=== PATIENT | female | born 1955 | race Caucasian/White ===

== ENCOUNTER → 2019-12-27 12:18 | Outpatient (CLI) | payer OTHER, SELFPAY ==
--- NOTE | ~2019-12-27 | MM_ITS ---
EXAMINATION: MM screening [facility] BI w leanne HISTORY: Screening mammogram TECHNIQUE: Craniocaudal and mediolateral oblique 3-D tomosynthesis images were obtained and synthetic 2-D images were generated. CAD analysis was submitted and interpreted. COMPARISON: 01/19/2018, 01/12/2018, 03/29/2014 BREAST PARENCHYMAL COMPOSITION: The breasts are heterogeneously dense, which may obscure small masses . FINDINGS: There is no evidence of suspicious mass, calcification, or architectural distortion to sugg est malignancy in either breast. There has been no suspicious interval change. IMPRESSION: 1. No mammographic evidence of malignancy. 2. Recommend routine screening mammography in one year. BI-RADS Category 1: Negative Reviewed, dictated and finalized at location A. INTERN
== END ==
PROVIDERS: Visit Provider Obstetrics & Gynecology
DX: Z12.31 Encounter for screening mammogram for malignant neoplasm of breast (principal)
CPT/HCPCS: 77063; 77067

== ENCOUNTER → 2022-01-07 13:24 | Outpatient (CLI) | payer OTHER, SELFPAY ==
--- NOTE | ~2022-01-07 | MM_ITS ---
EXAMINATION: MM screening [facility] BI w leanne HISTORY: Screening mammogram TECHNIQUE: Craniocaudal and mediolateral oblique 3-D tomosynthesis images were obtained and synthetic 2-D images were generated. CAD analysis was submitted and interpreted. COMPARISON: 12/27/2019 bilateral screening mammogram 01/19/2018 diagnostic left mammogram and limited left breast ultrasound examination 01/12/2018 bilateral screening mammogram BREAST PARENCHYMAL COMPOSITION: The breasts are heterogeneously dense, which may obscure small masses . FINDINGS: There is chronic stable mammographic asymmetry on the left likely related to history of zia or benign excisional biopsy. There is no evidence of suspicious mass, calcification, or interval arch itectural distortion to suggest malignancy in either breast. There has been no suspicious interval ch sheree. IMPRESSION: 1. No mammographic evidence of malignancy. 2. Recommend routine screening mammography in one year. BI-RADS Category 2: Benign finding(s). Reviewed, dictated and finalized at location A. NING CONSULTANT
== END ==
PROVIDERS: PCP Internal Medicine; Visit Provider Obstetrics & Gynecology
DX: Z12.31 Encounter for screening mammogram for malignant neoplasm of breast (principal)
CPT/HCPCS: 77063; 77067

== ENCOUNTER 2022-04-21 14:54 | Outpatient (CLI) | payer OTHER, SELFPAY ==
[2022-04-24 05:13] LABS: CA-125 6 U/mL (<35)
== END 2022-04-21 14:55 | disposition home or self-care (01) ==
PROVIDERS: PCP Internal Medicine; Visit Provider Student in an Organized Health Care Education/Training Program
DX: N94.89 Other specified conditions associated with female genital organs and menstrual cycle (principal)
CPT/HCPCS: 36415; 86304

== ENCOUNTER 2022-06-08 08:50 | Outpatient (CLI) | payer OTHER, SELFPAY ==
--- NOTE | 2022-06-08 09:18 | ECG_ITS ---
Measurements Intervals [place] Rate: 71 P: 61 [place]: 188 QRS: 8 QRSD: 89 T: 70 QT: 413 QTc: 451 Interpretive Statements SINUS RHYTHM POSSIBLE LEFT ATRIAL ENLARGEMENT [-0.1mV P WAVE IN V1/V2] POSSIBLE ANTERIOR MYOCARDIAL INFARCTION [30 ms Q WAVE IN V3/V4, OR R < 0.2 mV IN V4], OF INDETERMINATE AGE ABNORMAL ECG NO PREVIOUS ECG AVAILABLE FOR COMPARISON Electronically Signed On 06-08-2022 11:56:50 CDT by Cain Savage M.D.
[2022-06-08 09:40] LABS: Hematocrit 42.9 % (37.0-47.0); Hemoglobin 13.5 g/dL (12.0-15.0); Mean Corpuscular HGB Conc 31.5 g/dl (32-36); Mean Corpuscular Hemoglobin 29.2 pg (26-34); Mean Corpuscular Volume 92.7 fl (80-100); Platelet Count Result 213 k/mm3 (150-375); Red Blood Count 4.63 M/mm3 (4.2-5.4); Red Cell Distribution Width 13.2 % (11.5-14.5); White Blood Count 7.4 K/mm3 (4.5-10.0)
[2022-06-08 09:52] LABS: Anion Gap 6 mmol/L (8-16); Blood Urea Nitrogen 15 mg/dL (7-17); Carbon Dioxide 33 mmol/L (22-30); Chloride 101 mmol/L (98-107); Estimated Glomerular Filt Rate 45; Glucose 135 mg/dL (65-110); Potassium 4.2 mmol/L (3.4-5.0); Sodium 140 mmol/L (137-145)
== END 2022-06-08 08:51 | disposition home or self-care (01) ==
LOC: ANHSURGERY 08:54
PROVIDERS: Anesthesiology; PCP Internal Medicine; Visit Provider Student in an Organized Health Care Education/Training Program
DX: N83.209 Unspecified ovarian cyst, unspecified side (principal); T50.2X5A Adverse effect of carbonic-anhydrase inhibitors, benzothiadiazides and other diuretics, initial encounter; I10 Essential (primary) hypertension; Z01.818 Encounter for other preprocedural examination; R94.31 Abnormal electrocardiogram [ECG] [EKG]
CPT/HCPCS: 36415; 80048; 85027; 86850; 86900; 86901; 93005

== ENCOUNTER 2022-06-11 00:28 | Day surgery (SDC) | payer OTHER, SELFPAY ==
[2022-06-03 10:37] VITALS: BMI 28.3
--- NOTE | 2022-06-03 10:42 | PC.NURSE ---
Report to the Outpatient Waiting Room, entrance under the green pavilion located off [facility], at time 12:30PM on date 06-11-22. Planned Procedure Time: 2:30PM. Time changes happen often and if your time is changed the preop area will call you the afternoon before. - You and your visitor will be asked to self-screen and do not enter if you have any COVID symptoms. - A mask is optional within the hospital at this time. Patients may have clear liquids (water, carbonated beverages, clear teas, apple juice) until 3 hours prior to surgery (11:30AM) with a maximum of 20 ounces. - No food from midnight until time of surgery Take the following medications with a SIP of water the morning of surgery: N/A DO NOT STOP ANY OF YOUR OTHER PRESCRIPTION MEDICATIONS PRIOR TO SURGERY ?EXCEPT THE FOLLOWING Medications to discontinue per physician VITAMINS Date to take last dose 06-07-22 Please no make-up, nail irish, hairspray, perfume, deodorant, or body powder the day of surgery. No jewelry (including any body piercings) or valuables the day of surgery, leave them at home. Please take a shower or bath the night before, or the morning of, surgery with an antibacterial soap. Wear comfortable, loose fitting clothing. - Jewelry must be removed prior to entering the operating room. Rings and piercings that are not removed may be cut off. - The hospital will not accept responsibility for valuables. - Please leave all valuables, including medications, at home the day of surgery. If you are going home after surgery, a licensed driver/sales workers must drive you home. - NO public transportation without another adult if you receive anesthesia. - We recommend that an adult stay with you for 24 hours following discharge. - We also recommend that you do not drive, make important decision, drink alcoholic beverages, or take any drugs that were not prescribed by your health care provider for at least 24 hours after your discharge time. Follow any additional instructions given to you from your surgeon. If you or anyone in your household have experienced Covid symptoms in the past week, please notify your surgeon or the nurse liaison at the phone number below for possible testing. Telephone instructions given to PATIENT and asked if any additional questions and then verbalized understanding. Patient advised to call surgeon office or pre surgery nurse liaison [phone] if any additional questions.
--- NOTE | 2022-06-10 13:39 | WPDANESEPPF ---
Anes - Initial Pre Proc Eval Procedure: Operation Date: 06/11/22 14:30 Proposed Procedures p Laparoscopic Bilateral Oophorectomy, Possible Lysis of Adhesions - uJanpablo Altamirano MD Date/Time: 06/10/22 13:39 Surgeon: Juanpablo Altamirano MD Pre Op Diagnosis: pelvic pain Patient Data Age: 66 Gender: F Height: 1.55 m Weight: 68 kg Allergies Allergy/AdvReac Type Severity Reaction Status Date / Time Penicillins Allergy Severe Anaphylactic Verified 06/11/22 13:09 Shock Home Medications Medication Instructions Recorded Confirmed Type furosemide 20 mg tablet 20 mg PO QAM 04/15/22 06/03/22 History losartan 25 mg tablet 25 mg PO DAILY 04/15/22 06/03/22 History pantoprazole 20 mg tablet,delayed 20 mg PO QAM 04/15/22 06/03/22 History release Adults Multivitamin 1 tab-cap PO DAILY 06/03/22 06/03/22 History B Complex Plus Vitamin C 06/03/22 History cholecalciferol (vitamin D3) 10 06/03/22 History mcg (400 unit) capsule (Vitamin D3) Patient hx anesthesia problems: none Family hx anesthesia problems: none Results Review: All pre-operative results and documents have been reviewed as part of the pre-operative evaluation. [facility] Past Medical History Medical History (Updated 06/11/22 @ 13:08 by Tee Pryor DO) Adnexal mass Hypertension Moderate mitral regurgitation Ovarian cyst Vaginal discharge Surgical History Surgical History H/O: hysterectomy Family History Family History Mother Hypertension Cerebrovascular accident Grandparent Hypertension Heart disease Sibling Acute myocardial infarction Social History Social History Smoking packs per day: 1 Smoking cigarettes per day: 20.0 Years smoked: 43 Smoking pack-years: 43.00 Smoking status: Former smoker Tobacco type: cigarettes Second hand tobacco smoke exposure: No Smoking end date: 02/15/19 Alcohol intake: former Alcohol use details: SOCIALLY IN THE PAST Substance use: never Substance use type: does not use Living arrangements: with family Additional living arrangements comments: Occupation/Education: retired Gender identity (if verbalized by the patient): Female Sexual Orientation (if Verbalized by the Patient): Straight or Heterosexual Anes - Eval Final PreProcedure Day of Procedure 06/10/22 13:39 Patient weight: overweight Heart: regular rate and rhythm Lungs: clear to auscultation Airway: Mallampati scale class II Neurological: alert and oriented Last oral intake: >/= 8 hours ASA classification: III Emergent: no Anesthetic plan: proceed Anesthesia type and monitoring: general ETT and standard monitoring Results Review: All pre-operative results and documents have been reviewed as part of the pre-operative evaluation. Informed Consent: The patient's anesthetic plan and its attendant risks and benefits were discussed with the patient/family/POA. Questions were solicited and answers provided to the satisfaction of the patient/family/POA.
[2022-06-11] VITALS (7 sets, daily range): BP systolic 94–148; BP diastolic 44–87; PULSE 60–83; RESP 10–16; TEMP 36.3–36.6; O2SAT 94–100
[2022-06-11] MEDS: KETOROLAC 15 MG/ML VIAL (*BKC) IV PUSH (12:55)
[2022-06-11] MEDS: ACETAMINOPHEN 500 MG TABLET 1000 MG PO (12:55)
[2022-06-11] MEDS: LACTATED RINGERS 1,000 ML 30 ML IV CONT ×2 (13:08→16:32)
--- NOTE | 2022-06-11 13:32 | PM.IMHP ---
H&P: HPI History of Present Illness Date/Time: 06/11/22 13:32 Chief Complaint: pelvic pain Narrative: 66-year-old female who presents for exploratory laparoscopy bilateral oophorectomy for pelvic pain. Patient reports a long history of pelvic pain. Patient underwent hysterectomy nearly 40 years ago. Patient still has intermittent episodes of vaginal bleeding, discharge, pain. Pelvic ultrasound showed bilateral fluid collections with septations around the ovaries. Potential scar tissue and cysts. Patient very frustrated with the pain and desires surgical management Review of Systems Cardiovascular: Cardiovascular: Denies chest pain, Denies leg edema, Denies palpitations, Denies dyspnea and Denies dyspnea on exertion Respiratory: Respiratory: Denies cough, Denies dyspnea and Denies dyspnea on exertion Gastrointestinal: Gastrointestinal: Denies abdominal pain, Denies constipation, Denies diarrhea, Denies nausea and Denies vomiting Genitourinary: Genitourinary: Denies hematuria, Denies urinary frequency, Denies dysuria, Denies pelvic pain, Denies urinary incontinence and Denies vaginal discharge Neurologic: Reports system reviewed and no additional complaints, except as documented Psychiatric: Psychiatric: Reports no additional psychiatric complaints Endocrine: Endocrine: Denies palpitations [facility] Past Medical History Medical History (Updated 06/11/22 @ 13:34 by Juanpablo Altamirano MD) Adnexal mass Hypertension Moderate mitral regurgitation Ovarian cyst Vaginal discharge Surgical History Surgical History H/O: hysterectomy Family History Family History Mother Hypertension Cerebrovascular accident Grandparent Hypertension Heart disease Sibling Acute myocardial infarction Social History Social History Smoking packs per day: 1 Smoking cigarettes per day: 20.0 Years smoked: 43 Smoking pack-years: 43.00 Smoking status: Former smoker Tobacco type: cigarettes Second hand tobacco smoke exposure: No Smoking end date: 02/15/19 Alcohol intake: former Alcohol use details: SOCIALLY IN THE PAST Substance use: never Substance use type: does not use Living arrangements: with family Additional living arrangements comments: Occupation/Education: retired Gender identity (if verbalized by the patient): Female Sexual Orientation (if Verbalized by the Patient): Straight or Heterosexual Meds Home Medications and Allergies Home Medications Medication Instructions Recorded Confirmed Type furosemide 20 mg tablet 20 mg PO QAM 04/15/22 06/03/22 History losartan 25 mg tablet 25 mg PO DAILY 04/15/22 06/03/22 History pantoprazole 20 mg tablet,delayed 20 mg PO QAM 04/15/22 06/03/22 History release Adults Multivitamin 1 tab-cap PO DAILY 06/03/22 06/03/22 History B Complex Plus Vitamin C 06/03/22 History cholecalciferol (vitamin D3) 10 06/03/22 History mcg (400 unit) capsule (Vitamin D3) Allergies Allergy/AdvReac Type Severity Reaction Status Date / Time Penicillins Allergy Severe Anaphylactic Verified 06/11/22 13:09 Shock Vital Signs Vital Signs - 24 hr 06/11/22 13:02 Temperature 97.8 F Pulse Rate 62 Respiratory Rate 14 Blood Pressure 148/73 H Pulse Oximetry 100 Oxygen Delivery Room Air Exam Const: General: no acute distress Eyes: EOM: EOMs intact bilaterally Neck: Neck: supple Thyroid: thyroid normal Chest: Breast/axilla inspection: normal inspection of the breasts Breast/axilla palpation: normal palpation of the breasts, normal palpation of the axillae and no axillary lymphadenopathy Resp: Effort & Inspection: normal respiratory effort Auscultation: clear to auscultation bilaterally Cardio: Rate: regular rate Rhythm: regular rhythm GI: Inspection: non-distended GI P
--- NOTE | 2022-06-11 13:34 | WPDHPUPDATE1 ---
History and Physical Update Update Date/Time: 06/11/22 13:34 History and Physical has been reviewed, including an updated exam of the patient. There are NO changes in the patient's condition. Risks, benefits, and alternatives have been discussed and questions answered. Patient agrees to proceed with procedure.
[2022-06-11] MEDS: LIDO 1%/EPINEPHRINE 1:100,000 50 ML VIAL 26 ML INFILTRATE (14:39)
--- NOTE | 2022-06-11 16:15 | PM.CNGS ---
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 (2) Pelvic pain: Code(s): R10.2 - Pelvic and perineal pain Status: Chronic History of Present Illness Consult details Consult date: 06/11/22 Requesting physician: Juanpablo Altamirano MD Narrative: Patient is a 66-year-old woman who had a hysterectomy many years ago. She has been troubled with chronic pelvic pain and had abnormalities in the area of both ovaries. She is taken to surgery by Dr. Altamirano for laparoscopic bilateral oophorectomy. At surgery encountered significant adhesions of bowel and pelvic wall. I was asked to see the patient in consultation intraoperatively. Patient was asleep on the operating table at the time of my evaluation. Please refer to the operative note for any further findings. [facility] Past Medical History Medical History (Updated 06/11/22 @ 16:18 by Jhon Jason MD) Adnexal mass Hypertension Moderate mitral regurgitation Ovarian cyst Vaginal discharge Surgical History Surgical History H/O: hysterectomy Family History Family History Mother Hypertension Cerebrovascular accident Grandparent Hypertension Heart disease Sibling Acute myocardial infarction Social History Social History Smoking packs per day: 1 Smoking cigarettes per day: 20.0 Years smoked: 43 Smoking pack-years: 43.00 Smoking status: Former smoker Tobacco type: cigarettes Second hand tobacco smoke exposure: No Smoking end date: 02/15/19 Alcohol intake: former Alcohol use details: SOCIALLY IN THE PAST Substance use: never Substance use type: does not use Living arrangements: with family Additional living arrangements comments: Occupation/Education: retired Gender identity (if verbalized by the patient): Female Sexual Orientation (if Verbalized by the Patient): Straight or Heterosexual Meds Home Medications and Allergies Home Medications Medication Instructions Recorded Confirmed Type furosemide 20 mg tablet 20 mg PO QAM 04/15/22 06/03/22 History losartan 25 mg tablet 25 mg PO DAILY 04/15/22 06/03/22 History pantoprazole 20 mg tablet,delayed 20 mg PO QAM 04/15/22 06/03/22 History release Adults Multivitamin 1 tab-cap PO DAILY 06/03/22 06/03/22 History B Complex Plus Vitamin C 06/03/22 History cholecalciferol (vitamin D3) 10 06/03/22 History mcg (400 unit) capsule (Vitamin D3) Allergies Allergy/AdvReac Type Severity Reaction Status Date / Time Penicillins Allergy Severe Anaphylactic Verified 06/11/22 13:09 Shock Vital Signs Vital Signs - 24 hr 06/11/22 13:02 Temperature 36.6 C Pulse Rate 62 Respiratory Rate 14 Blood Pressure 148/73 H Pulse Oximetry 100 Oxygen Delivery Room Air Results Labs Labs: All other labs normal.
--- NOTE | 2022-06-11 16:19 | W.PM.PROC2 ---
Procedure Note - Detailed Date of Procedure 06/11/22 Pre-op Diagnosis pelvic pain Post-op Diagnosis Same Procedure Performed diagnostic laparoscopy 90 min lysis of adhesion right oophorectomy Surgeon Juanpablo Altamirano MD [employer] Jhon Jason MD Anesthesia General Indications pelvic pain ovarian cyst on imaging Findings extensive dense adhesions between the bowel and the anterior abdominal and pelvic side wall approximately 3-4 cm suprapubic ventral hernia normal appearing right ovary Description of Procedure The patient was taken to the operating room where general endotracheal anesthesia was undertaken and found to be adequate. She was then prepped and draped in the dorsal lithotomy position and placed in adjustable stirrups. A pre-operative team brief and a time out were completed. A catheter was placed to drain the bladder. Attention was then turned to the abdomen which was anesthetized umbilically with injected anesthestic. A 5 mm skin incision was made at Ventura's point. A 5 mm optical trocar was then placed with direct camera visualization of the abdominal layers during placement. The trocar stylet was removed and the camera was used to verify intra-abdominal placement. CO2 insufflation was then connected and resumed. The pelvis was inspected. A left lower quadrant 5 mm port was placed, in addition to a right lower quadrant 5 port in the standard fashion after using local anesthetic. The abdomen was surveyed and the above finding were noted. Adhesiolysis was started with monopolar scissors and a blunt grasper. Adhesions were extremely dense. General surgery was consulted intra-operatively to evaluate for bowel serosal tears and to assisted in dissecting bowel from the abdominal and pelvic marks. A 4th 10 mm trocar was introduced in the LUQ of the abdomen to help with tissue retraction and to remove the surgical specimen. Pleasee see Dr. Jason's dictation for further description of the lysis of adhesions. After extensive adhesiolysis, the right ovarian fossa was identified and entered. The Right ovary was identified. The right ovary and ligated and transected using the Ligasure device. At this time we turned to the left pelvis to identify the ovarian fossa. The adhesions between the bowel and the left pelvic sidewall were extremely dense. The bowel was difficult to dissect from the sidewall with sharp and blunt dissection. At this time, it was felt that it would not be safe to continue to try and dissect out the left ovary. The ovary had noted to be benign in appearance on imaging and CA-125 levels were within normal. I suspect the patients symptoms were from dense adhesive disease. I did not feel it was safe to risk bowel injury to remove the ovary. At this time, the procedure was abandoned and the left ovary was not removed. The surgical field was thoroughly irrigated using normal saline. All surgical beds were noted to be hemostatic. At this time, attention was turned to the 10 mm trocar site. The fascia was re-approximated using a korey-diana device. An 0- Vicryl sutures were used to close the fascia. Sponge, lap and needle counts were correct. All skin incisions were closed with 4-0 Vicryl suture subcuticularly. The urinary catheter was removed. The patient was taken out of dorsal lithotomy position. Anesthesia was reversed. The patient was taken to the PACU. Estimated Blood Loss 50 Drains No Packing No Pathology Yes (left ovary) Complications No immediate complications Condition Stable Disposition PACU [facility] Billing Surgery - Charge Forward: Surgery Billing
--- NOTE | 2022-06-11 16:20 | P.OP_ITS ---
Procedure Note - Detailed Date of Procedure 06/11/22 Pre-op Diagnosis pelvic pain, pelvic adhesions Post-op Diagnosis Same Procedure Performed Laparoscopic adhesiolysis Surgeon Jhon Jason MD Veterans' Counselor Abundio RUIZ Anesthesia General Indications Patient had dense pelvic adhesions particularly on the right side of the pelvis bleeding to the right ovary. There was also a lower abdominal anterior hernia which had dense adhesions associated with that. Some adhesions involving the colon had been taken down previously and I was asked to review this area of colon. Findings There was no evidence of a significant injury of the colon. Dense adhesions leading to the right ovary. Dense adhesions also to the right-sided lower abdominal hernia. Description of Procedure Patient was already asleep in the operating room. She was in Trendelenburg with laparoscopic instruments in place. Initially I reviewed the area of sigmoid colon and did not see any area of significant adhesion. There were dense adhesions primarily of omentum but also some colon epiploica to a right-sided lower abdominal hernia. These were completely taken down using blunt and sharp dissection. Some additional right colon dissection was needed to expose the right ovary. An additional 5 mm port was placed in the left mid abdomen for traction. Dissection following the round ligament and freeing the right colon and exposing the ovary with Dr. Altamirano present to assist in identifying the ovary itself was carried out. Once the ovary was fairly free of adhesions, the surgery was returned to Dr. Altamirano who proceeded with the oophorectomy and will dictate the previous portion of the surgery as well as the conclusion of the surgery. I stayed in the operating room and observed as he removed the right ovary and also perform dissection of some very difficult adhesions surrounding the sigmoid colon and left side of the pelvis. Estimated Blood Loss -5 Drains No Packing No Pathology None sent Complications No immediate complications Condition Stable Disposition PACU [facility] Billing Surgery - Charge Forward: Surgery Billing (Laparoscopic adhesiolysis pelvic adhesions)
--- NOTE | 2022-06-11 16:56 | PM.DS ---
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 patient was noted to have dense adhesive disease on laparoscopy. 90 minutes of lysis of adhesion was performed. The right ovary was able to be identified and removed. The left ovary was unable to be identified due to adhesive disease. Patient did well postoperatively. Patient denied any pain control issues. Patient denied any fever, chills, nausea, vomiting. Patient is discharged home on postoperative day 1. Status at Discharge Overall status at discharge: patient is progressing back to baseline Time Spent with Patient Time attestation: Total time spent providing and/or coordinating discharge services: Time spent: Less than 30 minutes Exam Const: General: cooperative, healthy appearing, comfortable and no acute distress Neck: Neck: normal visual inspection Resp: Effort & Inspection: normal respiratory effort and able to speak in complete sentences Cardio: Rate: regular rate Rhythm: regular rhythm GI: Inspection: normal to inspection and incision ( Laparoscopic sites clean dry and intact) GI Palp: Yes Soft to palpation, Yes Tenderness to palpation present (GI) and No Guarding due to palpation present (GI) Psych: Appearance: grossly normal Mental Status: mental status grossly normal DS: Data Data Completed and Pending Pending studies at discharge: Pending at discharge 06/11/22 15:54 Surgical [PTH] Routine Surgical [PTH] Routine Discharge Plan Discharge Patient Disposition: Home, Self-Care Patient Instructions: Exploratory Laparoscopy (DC) Stand Alone Forms: General Discharge Instructions Follow-up/Referrals: Juanpablo Altamirano MD [Physician] - Discharge Medications: New hydrocodone-acetaminophen 5-325 mg tablet 1 tablet PO Q6H PRN (Reason: pain) Qty: 28 0RF Continued furosemide 20 mg tablet 20 mg PO QAM pantoprazole 20 mg tablet,delayed release (DR/EC) 20 mg PO QAM losartan 25 mg tablet 25 mg PO DAILY Adults Multivitamin 1 tab-cap PO DAILY B Complex Plus Vitamin C cholecalciferol (vitamin D3) [Vitamin D3] 10 mcg (400 unit) Capsule
--- NOTE | 2022-06-11 17:52 | ADMGEN ---
This patient, Val Iraheta, was admitted to OB 2nd Floor Room 283-00. Patient/family oriented to hospital policies and general routines including ID bracelet, bed and alarms, visiting hours, pain management, procedures, bathroom and other care routines, personal items, smoking policy, room service/diet, and visiting hours. Information on how to activate the Rapid Response Team has been discussed. Patient/Family are encouraged to report perceived risks to care and to ask questions if they do not understand what they are told or what they should do.
[2022-06-11] MEDS: HYDROcodone/acetaminophen (*CRX) 10-325 MG TABLET 1 TAB PO (22:38)
[2022-06-12 00:15] VITALS: BP 131/64; PULSE 94; RESP 14; TEMP 36.9; O2SAT 94
[2022-06-12 04:00] VITALS: BP 125/66; PULSE 77; RESP 16; TEMP 36.6; O2SAT 93
[2022-06-12] MEDS: IBUPROFEN 600 MG TABLET PO ×2 (04:25→09:18)
[2022-06-12 08:15] VITALS: PULSE 77; RESP 16; O2SAT 93
[2022-06-12] MEDS: PANTOPRAZOLE SOD SESQUIHYDRATE 20 MG TAB PO (08:30)
[2022-06-12] MEDS: LOSARTAN POTASSIUM 25 MG TABLET PO (08:30)
[2022-06-12] MEDS: HYDROcodone/acetaminophen (*CRX) 5-325 MG TABLET 1 TAB PO (08:30)
[2022-06-12] MEDS: FUROSEMIDE 20 MG TABLET PO (08:30)
[2022-06-12 08:40] VITALS: BP 137/64; PULSE 77; RESP 18; TEMP 36.8; O2SAT 97
== END 2022-06-12 09:50 | disposition home or self-care (01) ==
LOC: ANHSURGERY 16:59 → ANHOB2 17:16
PROVIDERS: PCP Internal Medicine; Visit Provider Student in an Organized Health Care Education/Training Program
PROC: (CPT 49320; principal; 2022-06-11 14:30)
DX: N73.6 Female pelvic peritoneal adhesions (postinfective) (principal); R10.2 Pelvic and perineal pain; K43.9 Ventral hernia without obstruction or gangrene; I10 Essential (primary) hypertension; I34.0 Nonrheumatic mitral (valve) insufficiency; Z87.891 Personal history of nicotine dependence
CPT/HCPCS: 58661; 44180; 36415; 80048; 85027; 86850; 86900; 86901; 88305; 93005; 99199; A9270; J0330; J1100; J1885; J2250; J2405; J2704; J2710; J3010; J7030; J7120

== ENCOUNTER → 2022-11-10 09:28 | Outpatient (CLI) | payer MEDICARE, SELFPAY ==
--- NOTE | ~2022-11-10 | CT_ITS ---
EXAMINATION: CT abdomen pelvis wo con DATE: 11/10/2022 09:42 INDICATION: Incisional hernia without obstruction or gangrene. TECHNIQUE: Computed tomography (CT) of the abdomen and pelvis was performed without intravenous contr ast. Automated exposure control and iterative reconstruction technique were employed. The dose-length product was 594.55 mGy-cm. COMPARISON: None. FINDINGS: The visualized portions of the lung bases demonstrate mild atelectasis. No pleural effusion . The heart size is normal. No pericardial effusion. There is diffuse hepatic steatosis. The gallblad erick, spleen, and adrenal glands are normal. There are calcifications in the pancreas, consistent with chronic pancreatitis. There is cortical thinning of the kidneys. There is a 2 mm stone in right kidn ey. There are three 1-2 mm stones in left kidney. There is an anastomosis in the sigmoid colon. There are no dilated loops of bowel. There are supraumbilical and infraumbilical ventral hernias containin g nonobstructed small and large bowel. The appendix is not visualized. There is calcified atheroscler osis of the aorta and many of the other arteries. There are no pathologically enlarged lymph nodes. T here is trace pelvic ascites. There is mild lumbar spondylosis. IMPRESSION: 1. Supraumbilical and infraumbilical ventral hernias containing nonobstructed small and large bowel. Reviewed, dictated and finalized at location A. IMPRESSION: 1. Supraumbilical and infraumbilical ventral hernias containing nonobstructed s mall and large bowel.
== END ==
PROVIDERS: PCP Internal Medicine; Visit Provider Surgery
DX: K43.2 Incisional hernia without obstruction or gangrene (principal); K42.9 Umbilical hernia without obstruction or gangrene
CPT/HCPCS: 74176

== ENCOUNTER 2022-12-28 13:48 | Outpatient (CLI) | payer MEDICARE, SELFPAY ==
--- NOTE | ~2022-12-28 | XR_ITS ---
EXAMINATION: XR chest 2V DATE: 12/28/2022 14:48 INDICATION: Incisional hernia without obstruction or gangrene TECHNIQUE: PA and lateral views of the chest were obtained. COMPARISON: None FINDINGS: The lungs are clear with no focal airspace opacities, pulmonary edema, pleural effusion or pneumothor ax. The cardiomediastinal silhouette is normal. Moderate thoracic spondylosis. IMPRESSION: 1. No acute cardiopulmonary disease. Reviewed, dictated and finalized at location A. T DESK AGENT
--- NOTE | 2022-12-28 14:02 | ECG_ITS ---
Measurements Intervals [place] Rate: 69 P: 65 ID: 200 QRS: 34 QRSD: 94 T: 78 QT: 409 QTc: 440 Interpretive Statements SINUS RHYTHM BORDERLINE R WAVE PROGRESSION, ANTERIOR LEADS BASELINE ARTIFACT- I, III, AVR, AVL, AVF, V1-V6 BORDERLINE ECG COMPARED TO ECG 06/08/2022 09:33:04 NO SIGNIFICANT CHANGES Electronically Signed On 12-28-2022 14:37:44 [employer] by Augustine Zhang D.O.
[2022-12-28 14:50] LABS: Basophils Absolute Auto 0.1 K/mm3 (0.0-0.1); Basophils Percent Auto 0.8 % (0.2-1.2); Eosinophils Absolute Auto 0.3 K/mm3 (0-0.3); Eosinophils Percent Auto 3.6 % (0-4.4); Hematocrit 41.2 % (37.0-47.0); Hemoglobin 12.9 g/dL (12.0-15.0); Immature Granulocyte Absolute 0.07 K/mm3 (0.00-0.031); Lymphocytes Absolute Auto 1.86 K/mm3 (0.9-3.2); Lymphocytes Percent Auto 25.8 % (18.3-44.2); Mean Corpuscular HGB Conc 31.3 g/dl (32-36); Mean Corpuscular Hemoglobin 29.1 pg (26-34); Mean Corpuscular Volume 92.8 fl (80-100); Mean Platelet Volume 10.5 fl (7.4-10.4); Monocytes Absolute Auto 0.5 K/mm3 (0.1-0.6); Monocytes Percent Auto 7.1 % (2.6-8.5); Neutrophils Absolute Auto 4.5 K/mm3 (1.3-6.7); Neutrophils Percent Auto 61.7 % (45.5-73.1); Platelet Count Result 204 k/mm3 (150-375); Red Blood Count 4.44 M/mm3 (4.2-5.4); Red Cell Distribution Width 12.7 % (11.5-14.5); White Blood Count 7.2 K/mm3 (4.5-10.0)
[2022-12-28 14:57] LABS: Appearance Urine Clear (Clear); Bacteria Urine None Seen /hpf; Bilirubin Urine Negative (Negative); Blood Urine Negative (Negative); Color Urine Yellow (Yellow); Glucose Urine UA Negative (Negative); Ketones Urine Negative (Negative); Leukocyte Esterase Ur 1+ LEU/UL (Negative); Nitrate Urine Negative (Negative); Non Pathogenic Casts 0-2; Protein Urine Trace mg/dL (Negative); Specific Grav Ur 1.012 (1.001-1.035); Squamous Epithelial Cell Urine Few /hpf (Few); Urobilinogen Urine 0.2 mg/dL (<2.0); WBC Urine 21-50 /hpf; pH Urine 5.5 (5.0-9.0)
[2022-12-28 14:58] LABS: Add Urine Microscopic? YES; INR 0.9; Prothrombin Time 12.8 Seconds (11.1-14.7)
[2022-12-28 14:59] LABS: Anion Gap 11 mmol/L (8-16); Blood Urea Nitrogen 16 mg/dL (7-17); Calcium 9.4 mg/dL (8.4-10.2); Carbon Dioxide 27 mmol/L (22-30); Chloride 102 mmol/L (98-107); Estimated Glomerular Filt Rate 50; Glucose 156 mg/dL (65-110); Partial Thromboplastin Time 28.8 SECONDS (22.3-36.8); Potassium 3.9 mmol/L (3.4-5.0); Sodium 140 mmol/L (137-145)
== END 2022-12-28 13:49 | disposition home or self-care (01) ==
LOC: ANHSURGERY 13:51
PROVIDERS: PCP Internal Medicine; Visit Provider Surgery
DX: K43.2 Incisional hernia without obstruction or gangrene (principal); I10 Essential (primary) hypertension; R94.31 Abnormal electrocardiogram [ECG] [EKG]
CPT/HCPCS: 36415; 71046; 80048; 81001; 85025; 85610; 85730; 86850; 86900; 86901; 87077; 87086; 87088; 93005

== ENCOUNTER 2022-12-30 18:29 | Inpatient (IN) | payer MEDICARE, SELFPAY ==
--- NOTE | 2022-12-28 08:21 | PC.NURSE ---
Report to the Outpatient Waiting Room, entrance under the green pavilion located off [facility], at [id number] on date __12/30/22 . Planned Procedure Time: _829 . Time changes happen often and if your time is changed the preop area will call you the afternoon before. - You and your visitor will be asked to self-screen and do not enter if you have any COVID symptoms. - A mask is optional within the hospital at this time. Patients may have clear liquids (water, carbonated beverages, clear teas, apple juice) until 3 hours prior to surgery with a maximum of 20 ounces. - No food from midnight until time of surgery - Infants may have breast milk until 4 hours before surgery, formula 6 hours prior to surgery. - Children will be allowed to drink immediately following surgery. If applicable, please bring a bottle or sippy cup to assist with drinking. Juice, water, soda, and popsicles are readily available. For infants on formula, please bring formula the day of surgery. Pacifiers are allowed. Take the following medications with a SIP of water the morning of surgery: ___AMLODIPINE,ISOSORBIDE DO NOT STOP ANY OF YOUR OTHER PRESCRIPTION MEDICATIONS PRIOR TO SURGERY ?EXCEPT THE FOLLOWING Medications to discontinue per physician ____ALL VITAMINS AND SUPPLEMENTS 3 DAYS PRE OP.LAST DOSE 12/28/22 Please no make-up, nail congolese, hairspray, perfume, deodorant, or body powder the day of surgery. No jewelry (including any body piercings) or valuables the day of surgery, leave them at home. Please take a shower or bath the night before, or the morning of, surgery with an antibacterial soap. Wear comfortable, loose fitting clothing. Children are encouraged to wear pajamas. - Jewelry must be removed prior to entering the operating room. Rings and piercings that are not removed may be cut off. - The hospital will not accept responsibility for valuables. - Please leave all valuables, including medications, at home the day of surgery. If you are going home after surgery, a licensed refuse driver must drive you home. - NO public transportation without another adult if you receive anesthesia. - We recommend that an adult stay with you for 24 hours following discharge. - We also recommend that you do not drive, make important decision, drink alcoholic beverages, or take any drugs that were not prescribed by your health care provider for at least 24 hours after your discharge time. Follow any additional instructions given to you from your surgeon. If you or anyone in your household have experienced Covid symptoms in the past week, please notify your surgeon or the nurse liaison at the phone number below for possible testing. Telephone instructions given to ___PATIENT and asked if any additional questions and then verbalized understanding. Patient advised to call surgeon office or pre surgery nurse liaison [phone] if any additional questions.
[2022-12-28 08:29] VITALS: BMI 28.9
--- NOTE | 2022-12-29 10:38 | PM.IMHP ---
H&P: HPI History of Present Illness Date/Time: 12/29/22 10:38 Chief Complaint: Abdominal pain, hernias Narrative: Patient is a 67-year-old woman whom I 1st encountered in May of this year. Dr. Altamirano called me in to assist him with a laparoscopic adhesiolysis and laparoscopic bilateral oophorectomy. Her adhesions were too dense and we were only able to perform laparoscopic adhesiolysis. It was noted at that surgery that she had a sizable suprapubic hernia. Patient recovered well from that procedure but continues to have pain in both lower quadrants, particularly on the right side. She saw me in the office on 11/05/2022 for the 1st time. She was noted on exam to have a large suprapubic incisional hernia and possibly additional hernias in the area of the umbilicus. She had a CT scan of the abdomen and pelvis performed 11/10/2022. I have reviewed this CT scan in detail. She actually has [address] scan. Description of each hernia will be reported later in the history and physical under imaging. For repair of these multiple hernias, I have recommended incisional hernia repair with mesh as well as bilateral transversus abdominis myofascial flap advancement. I notified Dr. Altamirano that the patient was going to have open surgery. We have scheduled the hernia repair to coordinate with Dr. Altamirano who will perform bilateral oophorectomy and some pelvic adhesiolysis wall the abdomen is open. Thorough discussion of the hernia repair has been performed with the patient as well as her . All questions were answered. She has been prepared for surgery and is taken for these procedures on 12/30/2022. Review of Systems Review of Systems: All systems reviewed & are unremarkable except as noted in HPI and below (HPI and those items noted below) Constitutional: Constitutional: Reports as per HPI, Denies chills, Denies fever(s) and Denies poor appetite Cardiovascular: Cardiovascular: Reports chest pain, Denies syncope, Denies claudication, Denies orthopnea and Denies paroxysmal nocturnal dyspnea Comments: Patient has history of moderate mitral regurgitation and slight mitral stenosis. She had a cardiac catheterization in May of this year which showed less than 30% stenosis of the right coronary artery. 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 This has been managed by her benzene operator who has seen her preoperatively and feels the risks of surgery is low from a cardiac standpoint. Respiratory: Respiratory: Denies chest congestion, Denies cough and Denies dyspnea Gastrointestinal: Gastrointestinal: Reports as per HPI Integumentary/Breasts: Skin/Breast: Denies lesions and Denies rash PMFSH Past Medical History Medical History Adnexal mass Hypertension Moderate mitral regurgitation Ovarian cyst Vaginal discharge Surgical History Surgical History H/O gynecological procedure laparoscopy w.oopherectomy H/O: hysterectomy History of colon resection History of reversal of ileostomy Family History Family History Mother Hypertension Cerebrovascular accident Grandparent Hypertension Heart disease Sibling Acute myocardial infarction Social History Social History Smoking packs per day: 1 Smoking cigarettes per day: 20.0 Years smoked: 43 Smoking pack-years: 43.00 Smoking status: Former smoker Tobacco type: cigarettes Second hand tobacco smoke exposure: No Smoking end date: 02/15/19 Alcohol intake: former Alcohol use details: SOCIALLY IN THE PAST Substance use: never Substance use type: does not use Living arrangements: with family Additional living arrangements comments: Occupation/Education: retired Gender identity (if verbalized by the patient): Female
[2022-12-30] VITALS (23 sets, daily range): BP systolic 91–132; BP diastolic 48–69; PULSE 69–98; RESP 10–16; TEMP 36.4–37.2; O2SAT 90–100; BMI 29.2
--- NOTE | ~2022-12-30 | XR_ITS ---
EXAMINATION: XR abdomen/kub 1V DATE: 01/02/2023 05:29 INDICATION: Adynamic ileus. TECHNIQUE: A supine view of the abdomen on 2 radiographs was obtained. COMPARISON: CT abdomen and pelvis 11/10/2022, abdomen radiographs 01/01/2023 FINDINGS: There are dilated loops of small bowel. There is a small volume of stool in the colon. Ther e is mild dilatation of the sigmoid colon. Skin bill are noted. There is a surgical drain on the l eft. The nasogastric tube tip is in the stomach. There are airspace opacities at the lung bases. IMPRESSION: 1. Dilated small and large bowel, consistent with adynamic ileus. 2. Airspace opacities at the lung bases, consistent with atelectasis versus pneumonia. Reviewed, dictated and finalized at location E. METER TEMPERATURE REGULATOR IMPRESSION: 1. Dilated small and large bowel, consistent with adynamic ileus. 2. Airspace opacities at the lung bases, consistent with atelectasis versus pne umonia.
--- NOTE | ~2022-12-30 | XR_ITS ---
EXAMINATION: XR abdomen/kub 1V DATE: 01/04/2023 06:24 INDICATION: Adynamic ileus. TECHNIQUE: A supine view of the abdomen on 2 radiographs was obtained. COMPARISON: Abdomen radiographs 01/03/2023 FINDINGS: There are dilated loops of small bowel. The colon is decompressed. There are calcifications in the pancreas, consistent with chronic pancreatitis. The nasogastric tube tip is in the stomach. T here is a surgical drain in left abdomen. Skin bill are noted. IMPRESSION: 1. Persistently dilated small bowel, consistent with adynamic ileus. Reviewed, dictated and finalized at location E. RVISOR FOOD CHECKERS AND CASHIERS
--- NOTE | ~2022-12-30 | XR_ITS ---
EXAMINATION: XR abdomen/kub 1V DATE: 01/03/2023 07:03 INDICATION: Adynamic ileus. TECHNIQUE: A supine view of the abdomen on 2 radiographs was obtained. COMPARISON: Abdomen radiograph 01/02/2023 FINDINGS: There are dilated loops of small bowel. The colon is normal in caliber. Skin bill are no jack. The nasogastric tube tip is in the stomach. There is a surgical drain on the left. IMPRESSION: 1. Persistently dilated small bowel, consistent with adynamic ileus. Reviewed, dictated and finalized at location E. TRIC LOCOMOTIVE FIRER/FIREMAN
--- NOTE | ~2022-12-30 | XR_ITS ---
XR abdomen gastric tube insert DATE: 01/01/2023 16:07 INDICATION: NG tube placement TECHNIQUE: Portable AP view on 01/01/2023 at 1601 hours COMPARISON: None FINDINGS: There is a nasogastric tube overlying the stomach, the distal tip overlying the lower body of the stomach, the proximal side-port approximately 6.5 cm distal to the diaphragmatic hiatus. Apparent surgical drain overlies the left lower abdomen. Preston overlie the midabdomen. There is gaseous distention of stomach and multiple small bowel segments, likely postoperative adynam ic ileus. Bibasilar infiltrate or atelectasis, left greater than right. IMPRESSION: NG tube in lower body of stomach Reviewed, dictated and finalized at Location A. Reviewed, dictated and finalized at location B. RMATION SPECIALIST
[2022-12-30] MEDS: ACETAMINOPHEN 500 MG TABLET 1000 MG PO (06:57)
[2022-12-30] MEDS: LACTATED RINGERS 1,000 ML 30 ML IV CONT ×3 (07:13→15:41)
[2022-12-30] MEDS: KETOROLAC 15 MG/ML VIAL (*BKC) IV PUSH (07:22)
--- NOTE | 2022-12-30 07:26 | WPDHPUPDATE1 ---
History and Physical Update Update Date/Time: 12/30/22 07:26 History and Physical has been reviewed, including an updated exam of the patient. There are NO changes in the patient's condition. Risks, benefits, and alternatives have been discussed and questions answered. Patient agrees to proceed with procedure.
--- NOTE | 2022-12-30 07:46 | PM.IMHP ---
H&P: HPI History of Present Illness Date/Time: 12/30/22 07:46 Chief Complaint: pelvic pain Narrative: 67 yo female who presents for exploratory laparotomy? with repair of ventral hernias, lysis of adhesion and bilateral oophorectomy.? Patient had previously undergone exploratory laparoscopy with lysis of adhesions for pelvic pain.? Bilateral oophorectomy was attempted at the time but unsuccessful due to amount of adhesive disease.? Patient was doing well postoperatively after lysis of adhesion.? Patient states that her abdominal pain return.? Patient states her pain is mostly midline and right lower quadrant. Review of Systems Cardiovascular: Cardiovascular: Denies chest pain, Denies leg edema, Denies palpitations, Denies dyspnea and Denies dyspnea on exertion Respiratory: Respiratory: Denies cough, Denies dyspnea and Denies dyspnea on exertion Gastrointestinal: Gastrointestinal: Denies abdominal pain, Denies constipation, Denies diarrhea, Denies nausea and Denies vomiting Genitourinary: Genitourinary: Denies hematuria, Denies urinary frequency, Denies dysuria, Denies pelvic pain, Denies urinary incontinence and Denies vaginal discharge Neurologic: Reports system reviewed and no additional complaints, except as documented Psychiatric: Psychiatric: Reports no additional psychiatric complaints Endocrine: Endocrine: Denies palpitations PMFSH Past Medical History Medical History Adnexal mass Hypertension Moderate mitral regurgitation Ovarian cyst Vaginal discharge Surgical History Surgical History H/O gynecological procedure laparoscopy w.oopherectomy H/O: hysterectomy History of colon resection History of reversal of ileostomy Family History Family History Mother Hypertension Cerebrovascular accident Grandparent Hypertension Heart disease Sibling Acute myocardial infarction Social History Social History Smoking packs per day: 1 Smoking cigarettes per day: 20.0 Years smoked: 43 Smoking pack-years: 43.00 Smoking status: Former smoker Tobacco type: cigarettes Second hand tobacco smoke exposure: No Smoking end date: 02/15/19 Alcohol intake: former Alcohol use details: SOCIALLY IN THE PAST Substance use: never Substance use type: does not use Living arrangements: with family Additional living arrangements comments: Occupation/Education: retired Gender identity (if verbalized by the patient): Female Sexual Orientation (if Verbalized by the Patient): Straight or Heterosexual Spiritual care concerns: No Meds Home Medications and Allergies Home Medications Medication Instructions Recorded Confirmed Type Adults Multivitamin 1 tab-cap PO DAILY 06/03/22 11/24/22 History cholecalciferol (vitamin D3) 10 10 mcg PO DAILY 06/03/22 12/30/22 History mcg (400 unit) capsule (Vitamin D3) escitalopram oxalate 10 mg tablet 10 mg PO HS 08/04/22 12/30/22 History isosorbide mononitrate 30 mg 60 mg PO DAILY 08/04/22 12/30/22 History tablet,extended release 24 hr amlodipine 2.5 mg tablet 2.5 mg PO DAILY 12/28/22 12/30/22 History ascorbic acid (vitamin C) 1,000 mg 1 g PO DAILY 12/28/22 12/30/22 History tablet juksvx-[id number]-[id number] 1 cap PO DAILY 12/28/22 12/30/22 History 5,000-17,000-24,000 unit capsule, delayed rel (Zenpep) losartan 100 mg tablet 100 mg PO DAILY 12/28/22 12/30/22 History melatonin 10 mg tablet 10 mg PO HS PRN Insomnia 12/28/22 12/30/22 History pantoprazole 40 mg tablet,delayed 40 mg PO DAILY 12/28/22 12/30/22 History release Allergies Allergy/AdvReac Type Severity Reaction Status Date / Time Penicillins Allergy Severe Anaphylactic Verified 12/30/22 07:27 Shock Vital Signs Vital Signs - 24 hr 12/30/22 07:
--- NOTE | 2022-12-30 07:47 | WPDANESEPPF ---
Anes - Initial Pre Proc Eval Procedure: Operation Date: 12/30/22 08:30 Proposed Procedures p Incisional Hernia Repair with Mesh, Posterior Component Separation - Jhon Jason MD s Bilateral Oophorectomy - Juanpablo Altamirano MD Date/Time: 12/30/22 07:47 Surgeon: Jhon Jason MD Pre Op Diagnosis: multiple incisional hernias, Pelvic Pain Patient Data Age: 67 Gender: F Height: 1.55 m Weight: 68.9 kg Last Vital Signs Temp 36.9 C 12/30/22 07:30 Pulse 69 12/30/22 07:30 Resp 16 12/30/22 07:30 BP 132/66 12/30/22 07:30 Pulse Ox 98 12/30/22 07:30 O2 Del Method Room Air 12/30/22 07:30 Allergies Allergy/AdvReac Type Severity Reaction Status Date / Time Penicillins Allergy Severe Anaphylactic Verified 12/30/22 07:27 Shock Home Medications Medication Instructions Recorded Confirmed Type Adults Multivitamin 1 tab-cap PO DAILY 06/03/22 11/24/22 History cholecalciferol (vitamin D3) 10 10 mcg PO DAILY 06/03/22 12/30/22 History mcg (400 unit) capsule (Vitamin D3) escitalopram oxalate 10 mg tablet 10 mg PO HS 08/04/22 12/30/22 History isosorbide mononitrate 30 mg 60 mg PO DAILY 08/04/22 12/30/22 History tablet,extended release 24 hr amlodipine 2.5 mg tablet 2.5 mg PO DAILY 12/28/22 12/30/22 History ascorbic acid (vitamin C) 1,000 mg 1 g PO DAILY 12/28/22 12/30/22 History tablet lbwxjk-rtkzwoub-gcjbvno 1 cap PO DAILY 12/28/22 12/30/22 History 5,000-17,000-24,000 unit capsule, delayed rel (Zenpep) losartan 100 mg tablet 100 mg PO DAILY 12/28/22 12/30/22 History melatonin 10 mg tablet 10 mg PO HS PRN Insomnia 12/28/22 12/30/22 History pantoprazole 40 mg tablet,delayed 40 mg PO DAILY 12/28/22 12/30/22 History release Patient hx anesthesia problems: none Family hx anesthesia problems: none Results Review: All pre-operative results and documents have been reviewed as part of the pre-operative evaluation. PENDING SALE TO [facility] Past Medical History Medical History Adnexal mass Hypertension Moderate mitral regurgitation Ovarian cyst Vaginal discharge Surgical History Surgical History H/O gynecological procedure laparoscopy w.oopherectomy H/O: hysterectomy History of colon resection History of reversal of ileostomy Family History Family History Mother Hypertension Cerebrovascular accident Grandparent Hypertension Heart disease Sibling Acute myocardial infarction Social History Social History Smoking packs per day: 1 Smoking cigarettes per day: 20.0 Years smoked: 43 Smoking pack-years: 43.00 Smoking status: Former smoker Tobacco type: cigarettes Second hand tobacco smoke exposure: No Smoking end date: 02/15/19 Alcohol intake: former Alcohol use details: SOCIALLY IN THE PAST Substance use: never Substance use type: does not use Living arrangements: with family Additional living arrangements comments: Occupation/Education: retired Gender identity (if verbalized by the patient): Female Sexual Orientation (if Verbalized by the Patient): Straight or Heterosexual Spiritual care concerns: No Anes - Eval Final PreProcedure Day of Procedure 12/30/22 07:47 Patient weight: overweight Heart: regular rate and rhythm Lungs: clear to auscultation Airway: Mallampati scale class II Neurological: alert and oriented Last oral intake: >/= 8 hours ASA classification: III Emergent: no Anesthetic plan: proceed Anesthesia type and monitoring: general ETT and standard monitoring Results Review: All pre-operative results and documents have been reviewed as part of the pre-operative evaluation. Informed Consent: The patient's anesthetic plan and its attendant risks and benefits were discussed with the patient/famil
--- NOTE | 2022-12-30 07:48 | WPDHPUPDATE1 ---
History and Physical Update Update Date/Time: 12/30/22 07:48 History and Physical has been reviewed, including an updated exam of the patient. There are NO changes in the patient's condition. Risks, benefits, and alternatives have been discussed and questions answered. Patient agrees to proceed with procedure.
[2022-12-30] MEDS: GENTAMICIN 80MG/SOD CHL 50 ML 80 MG/50 ML BAG 100 MG IVPB (08:56)
[2022-12-30] MEDS: ceFAZolin 2 GM/D5W 50 ML 2 GM/50 ML BAG IVPB (09:01)
--- NOTE | 2022-12-30 11:01 | W.PM.PROC2 ---
Procedure Note - Detailed Date of Procedure 12/30/22 Pre-op Diagnosis multiple incisional hernias, Pelvic Pain Post-op Diagnosis Same Procedure Performed Exploratory laparotomy Lysis of adhesion Bilateral oophorectomy Surgeon Juanpablo Altamirano MD Anesthesia General Indications Pelvic pain Ventral hernias Findings Dense adhesive disease noted throughout the abdomen pelvis Status post hysterectomy, cervix, uterus, bilateral fallopian tubes surgically absent Description of Procedure Please refer to Dr. Jason's dictation for full operative report. Upon entering room, patient was in supine position under general anesthesia. A midline vertical laparotomy had been made by Dr. Jason. Adhesiolysis had been performed to remove as much adhesive disease from the anterior abdominal wall as possible. Dissection had been extended down into the pelvis. Dr. Jason had cleanly dissected and identified the bladder, ureters bilaterally, external iliacs. With these landmarks identified, attention was turned to the right ovarian fossa. The suspected right ovarian tissue was identified. Further dissection was made to isolate the infundibulopelvic ligament. With clear visualization of the ureter and surrounding vessels, the infundibulopelvic ligament was ligated with the LigaSure device. The right ovarian fossa was noted to be hemostatic after dissection. Attention was then turned to the left ovarian fossa. The left side of the pelvis had far more dense adhesive disease. Tissue planes were poorly defined due to scar tissue. The left ureter and external iliac were identified and followed along their course. Suspected left ovarian tissue was noted to be adherent deep in the ovarian fossa and anterior towards the bladder. Sharp dissection was performed to try and identify tissue planes and isolate the left ovarian tissue and infundibulopelvic ligament. The suspected ovarian tissue was able to be dissected off of the bladder. The infundibulopelvic ligament was then ligated with the LigaSure device. The left ovarian fossa was noted to be hemostatic after dissection. Bilateral ovarian tissue was sent separately to pathology. Again good hemostasis was noted within the pelvis. At this time, the bilateral oophorectomy portion of the procedure was finished. Remainder of the surgery was performed by Dr. Jason. Please refer to his dictation for full operative report. Drains No Packing No Pathology Yes (bilateral ovaries) Complications No immediate complications Condition Stable Disposition PACU [facility] Billing Surgery - Charge Forward: Surgery Billing
[2022-12-30] MEDS: ceFAZolin SODIUM 1 GM VIAL 2 GM IV PUSH (12:56)
--- NOTE | 2022-12-30 14:44 | W.PM.PROC2 ---
Procedure Note - Detailed Date of Procedure 12/30/22 Pre-op Diagnosis multiple incisional hernias, Pelvic Pain, adhesions Post-op Diagnosis Same (Also add injury to sigmoid colon) Procedure Performed Lengthy adhesiolysis, repair multiple ventral hernias totaling 17.5 cm, bilateral transversus abdominis myofascial flap advancement, 5 cm on the left, 4 cm on the right. Repair injury to sigmoid colon Surgeon Jhon Jason MD Coach Operator [facility] Anesthesia General Indications Patient has history of chronic pelvic pain after having had a previous hysterectomy as well as Giacomo procedure with colostomy for severe diverticulitis. She later had colostomy closure. She is known from a previous laparoscopy in May that she had numerous and difficult adhesions. She also was noted in May to have a suprapubic hernia and possibly some other hernias. She was seen in the office and found to have several hernias. CT scan of the abdomen and pelvis showed at least 5 incisional hernias. The farthest any a of the hernias was from the adjacent hernia was 3 cm. The overall length of the fascia involve with hernias was 17-1/2 cm. She is taken to surgery now for repair of this multiple hernias with mesh and myofascial flap advancement. During the surgery, Dr. Altamirano, will provide bilateral oophorectomy in hopes of helping her chronic pelvic pain. He will dictate that portion of the procedure separately. Findings Extremely dense difficult hernias especially on the patient's left side. Theabdominal contents were densely attached to the anterior abdominal wall, lateral abdominal wall, and in the pelvis they were particularly dense. The adhesions were carefully taken down and at least an hour and a half of adhesiolysis was required. Once this was completed though, we did have access to the anterior abdominal wall and all the areas necessary to do the proposed hernia repair. I assisted during Dr. Altamirano's portion the procedure. This was very difficult as well. During this portion of the procedure, traction was applied to the distal sigmoid colon. The small full-thickness colon injury occurred. This was apparently from traction as no instruments had been used in this area. This was able to be closed with 2 layer closure. There was minimal contamination associated with this. Because of the extremely difficult adhesiolysis, the surgery lasted 5 hours which is easily 2 hours longer than usual. At least an hour and a half of this was due to adhesiolysis. Dr. Altamirano's surgery is included in this time but was really less than an hour. This was an extremely difficult surgery due to these adhesions. Much more so than the typical repair of multiple incisional hernias with myofascial flap advancement. Description of Procedure Patient was taken to surgery and induced into general anesthesia. Ewing catheter was placed and the orogastric tube was placed. The abdomen was prepped and draped. The previous midline scar was completely excised. The skin and subcutaneous were made hemostatic with the cautery. Dissection was then carried down to the hernias and the fascia. There were multiple hernias, at least the [address], and each of these was carefully dissected and the fascia opened. Fascia was opened the length of the wound after carefully avoiding any underlying bowel. At this point, adhesiolysis on the anterior abdominal wall was carried out. As noted above, there were an extremely large number of adhesions which were very dense. Very few of these adhesions would resolved with gentle traction. They were particularly ominous in that there density would easily promote bowel injury. It took a great deal of time and careful dissection to free the anterior abdominal wall and particularly the pelvis on the left side from these adhesions. Once this was completed, I went to the patient's left side and performed adhesiolysis on the patient's right side. Fortunately the righ
[2022-12-30] MEDS: fentaNYL CITRATE INJ (*CRX) 100 MCG/2 ML VIAL 25 MCG IV PUSH ×8 (14:46→17:15)
--- NOTE | 2022-12-30 15:31 | SUR.PHASEI ---
1530: Patient meets PACU discharge criteria, unit bed unavailable at this time. Patient placed in extended recovery status.
[2022-12-30] MEDS: SODIUM CHLORIDE 0.9% IV 1,000 ML 999 ML IV CONT (16:06)
[2022-12-30] MEDS: oxyCODONE HCL (*CRX) 5 MG TAB IR PO (17:16)
--- NOTE | 2022-12-30 18:40 | ADMGEN ---
This patient, Val Iraheta, was admitted to Intensive Care Unit-10. Patient/family oriented to hospital policies and general routines including ID bracelet, bed and alarms, visiting hours, pain management, procedures, bathroom and other care routines, personal items, smoking policy, room service/diet, and visiting hours. Information on how to activate the Rapid Response Team has been discussed. Patient/Family are encouraged to report perceived risks to care and to ask questions if they do not understand what they are told or what they should do.
[2022-12-30] MEDS: MORPHINE SULFATE (*CRX) 4 MG/ML INJ IV PUSH (18:54)
[2022-12-30] MEDS: LACTATED RINGERS 1,000 ML 100 ML IV CONT (18:55)
[2022-12-30] MEDS: PROMETHAZINE HCL 25 MG/ML AMPUL 12.5 MG IV PUSH (18:55)
[2022-12-30] MEDS: ESCITALOPRAM OXALATE 10 MG TABLET PO (21:44)
[2022-12-30] MEDS: SENNA/DOCUSATE SODIUM TABLET 2 TAB PO (21:44)
[2022-12-30] MEDS: ENOXAPARIN 30 MG/0.3 ML SYRINGE SUB-Q (21:44)
[2022-12-30] MEDS: HYDROcodone/acetaminophen (*CRX) 5-325 MG TABLET 1 TAB PO (21:51)
[2022-12-31] VITALS (13 sets, daily range): BP systolic 96–116; BP diastolic 49–64; PULSE 76–104; RESP 12–20; TEMP 36.6–37.6; O2SAT 92–95
[2022-12-31 04:52] LABS: Hematocrit 36.2 % (37.0-47.0); Hemoglobin 11.2 g/dL (12.0-15.0); Mean Corpuscular HGB Conc 30.9 g/dl (32-36); Mean Corpuscular Hemoglobin 28.9 pg (26-34); Mean Corpuscular Volume 93.3 fl (80-100); Mean Platelet Volume 10.3 fl (7.4-10.4); Platelet Count Result 166 k/mm3 (150-375); Red Blood Count 3.88 M/mm3 (4.2-5.4); Red Cell Distribution Width 12.9 % (11.5-14.5); White Blood Count 13.7 K/mm3 (4.5-10.0)
[2022-12-31] MEDS: HYDROcodone/acetaminophen (*CRX) 5-325 MG TABLET 1 TAB PO (04:53)
[2022-12-31 05:05] LABS: Anion Gap 9 mmol/L (8-16); Blood Urea Nitrogen 20 mg/dL (7-17); Calcium 8.1 mg/dL (8.4-10.2); Carbon Dioxide 24 mmol/L (22-30); Chloride 105 mmol/L (98-107); Estimated CRCL calculation 36 ml/min; Estimated Glomerular Filt Rate 41; Glucose 129 mg/dL (65-110); Potassium 4.5 mmol/L (3.4-5.0); Sodium 138 mmol/L (137-145)
[2022-12-31] MEDS: MORPHINE SULFATE (*CRX) 2 MG/ML INJ IV PUSH (06:41)
[2022-12-31] MEDS: SODIUM CHLORIDE 0.9% IV 1,000 ML 999 ML IV CONT (09:12)
[2022-12-31] MEDS: ASCORBIC ACID 500 MG TABLET 1000 MG PO (09:13)
[2022-12-31] MEDS: ENOXAPARIN 40 MG/0.4 ML SYRINGE SUB-Q (09:13)
[2022-12-31] MEDS: polyethylene glycoL 3350 17 GM POWD.PACK PO (09:13)
[2022-12-31] MEDS: PANTOPRAZOLE 40 MG TABLET PO (09:14)
[2022-12-31] MEDS: HYDROcodone/acetaminophen (*CRX) 10-325 MG TABLET 1 TAB PO ×3 (09:16→23:30)
--- NOTE | 2022-12-31 11:11 | WPDANESPN ---
Anes - Prog Note Post-Op Date/Time: 12/31/22 11:11 Cardiovascular status: normal Respiratory status: other (O2 per NC) Airway patency: baseline Mental status: baseline Post-Op hydration status: normal Vital Signs: Last Vital Signs Temp 37.1 C 12/31/22 08:00 Pulse 76 12/31/22 10:00 Resp 18 12/31/22 08:00 BP 96/49 L 12/31/22 08:00 Pulse Ox 95 12/31/22 08:00 O2 Del Method Nasal Cannula 12/31/22 08:00 O2 Flow Rate 2 12/31/22 08:00 Pain Score (VAS): 03/27 I/O: Intake & Output 12/30/22 12/31/22 12/31/22 23:59 07:59 15:59 Intake Total 1950 1200 200 Output Total 230 590 Balance 1720 610 200 Laboratory Tests 12/31/22 04:34 12/31/22 04:34 12/31/22 04:34 WBC 13.7 H RBC 3.88 L Hgb 11.2 L Hct 36.2 L MCV 93.3 MCH 28.9 MCHC 30.9 L RDW 12.9 Plt Count 166 MPV 10.3 Sodium 138 Potassium 4.5 Chloride 105 Carbon Dioxide 24 Anion Gap 9 BUN 20 H Creatinine 1.30 H Estim Creat Clear Calc 36 Estimated GFR 41 L Glucose 129 H Calcium 8.1 L Post-procedural complaints: none Patient Feedback: Patient satisfied with anesthetic care.
[2022-12-31] MEDS: MORPHINE SULFATE (*CRX) 4 MG/ML INJ IV PUSH ×2 (12:07→20:19)
--- NOTE | 2022-12-31 13:59 | PM.GYNPNOP ---
CANNON CREWMEMBER - A/P Assessment and plan (1) Post-operative state: Code(s): Z98.890 - Other specified postprocedural states Status: Acute Assessment and Plan: postop day 1. From exploratory laparotomy, ventral hernia repair, adhesiolysis, bilateral oophorectomy Patient did well overnight the ICU Patient reports adequate pain control Patient has ambulated out of bed without difficulty She denies any nausea, vomiting Afebrile, vital signs stable Postoperative H&H stable Continue routine postoperative care Postoperative Procedures: Procedures Operation Date: 12/30/22 08:30 Actual Procedure Side Surgeon p Incisional Hernia Repair with Mesh, Posterior Component Separation Not Applicable Jhon Jason MD s Bilateral Oophorectomy, Lysis of Adhesions Bilateral Juanpablo Altamirano MD Postoperative status: doing well Postoperative plan: routine post-op care Time Spent With Patient Time: Total time spent is greater than 50% in coordination of care (as documented) at patient's floor/unit and/or counseling patient: Time with patient: less than 15 minutes CANNON CREWMEMBER- PN:Subj Post-Op Subjective Date/time seen: 12/31/22 13:59 Interval history: [age] will be mailed postoperative day 1 from exploratory laparotomy, adhesiolysis, hernia repair, bilateral oophorectomy. Patient is resting comfortably in the bed. Patient states her pain is controlled on medications. Patient has been able to ambulate out of bed. Subjective: patient has no complaints and pain is well controlled Exam Const: General: cooperative and no acute distress Resp: Effort & Inspection: normal respiratory effort and able to speak in complete sentences Cardio: Rate: regular rate GI: Inspection: incision ( Midline vertical incision) GI Palp: Yes abdominal tenderness CANNON CREWMEMBER - PN: Obj Data Vital Signs Vital Signs: Vital Signs - 24 hr 12/30/22 14:21 12/30/22 14:33 12/30/22 14:35 Temperature 97.5 F L Pulse Rate 90 83 94 Respiratory Rate 14 14 15 Blood Pressure 112/54 L 91/48 L 100/50 L Pulse Oximetry 100 100 100 Oxygen Delivery Simple Face Mask Simple Face Mask Simple Face Mask Oxygen Flow Rate 8 8 8 12/30/22 14:50 12/30/22 15:05 12/30/22 15:20 Temperature Pulse Rate 94 97 91 Respiratory Rate 12 12 12 Blood Pressure 108/51 L 96/58 L 105/55 L Pulse Oximetry 100 93 97 Oxygen Delivery Room Air Room Air Nasal Cannula Oxygen Flow Rate 2 12/30/22 15:35 12/30/22 16:05 12/30/22 16:35 Temperature Pulse Rate 86 89 85 Respiratory Rate 10 L 13 12 Blood Pressure 102/53 L 116/55 L 113/54 L Pulse Oximetry 96 98 94 Oxygen Delivery Nasal Cannula Nasal Cannula Nasal Cannula Oxygen Flow Rate 2 2 2 12/30/22 17:05 12/30/22 17:35 12/30/22 18:05 Temperature Pulse Rate 86 85 88 Respiratory Rate 12 12 14 Blood Pressure 108/57 L 123/61 121/62 Pulse Oximetry 95 96 97 Oxygen Delivery Nasal Cannula Nasal Cannula Nasal Cannula Oxygen Flow Rate 2 2 2 12/30/22 18:25 12/30/22 18:44 12/30/22 19:00 Temperature Pulse Rate 94 98 98 Respiratory Rate 14 11 L 12 Blood Pressure 117/62 119/65 108/63 Pulse Oximetry 97 90 90 Oxygen Delivery Nasal Cannula Oxygen Flow Rate 2 12/30/22 20:00 12/30/22 22:00 12/30/22 19:15 Temperature Pulse Rate 81 88 89 Respiratory Rate 10 L Blood Pressure 105/59 L Pulse Oximetry 93 Oxygen Delivery Oxygen Flow Rate 12/30/22 19:30 12/30/22 20:00 12/30/22 20:30 Temperature 98.9 F Pulse Rate 85 81 80 Respiratory Rate 10 L 10 L 10 L Blood Pressure 105/60 105/60 112/67 Pulse Oximetry 94 95 96 Oxygen Delivery Oxygen Flow Rate 12/30/22 21:00 12/30/22 21:30 12/30/22 22:00 Temperature 98.1 F Pulse Rate 81 80 88 Respiratory Rate 10 L 11 L 13 Blood Pressure 118/65 117/62 117/69 Pulse Oximetry 96 96 94 Oxygen Delivery Oxygen Flow Rate 12/30/22 20:00 12/30/22 20:00 12/31/22 00:00 Temperature Pulse Rate 82 Respiratory Rate Blood Pressure
--- NOTE | 2022-12-31 14:38 | PM.PNGS ---
Progress Note: A&P Assessment and Plan (1) Incisional hernia without obstruction or gangrene: Code(s): K43.2 - Incisional hernia without obstruction or gangrene Status: Chronic Assessment and Plan: Repaired with posterior component separation and mesh yesterday. Repair went very well. Patient doing well postop day 1. Continue care in IMU due to cardiac disease. Will consult hospitalist for perioperative medical management. BUN and creatinine are slightly higher today, will bolus with another L of normal saline. (2) Intra-abdominal adhesions: Code(s): K66.0 - Peritoneal adhesions (postprocedural) (postinfection) Status: Chronic Assessment and Plan: Very difficult part of the surgery yesterday. No sign of bowel injury or peritonitis. (3) Sigmoid colon injury: Qualifiers: Encounter type: subsequent encounter Qualified Code(s): S36.503D - Unspecified injury of sigmoid colon, subsequent encounter Code(s): S36.503A - Unspecified injury of sigmoid colon, initial encounter Status: Acute Assessment and Plan: Small injury to sigmoid colon during surgery yesterday. Minimal contamination. Closed in 2 layers during the procedure. I discussed this with the patient's when I called him following the surgery last night. I then further discussed this with the patient this morning. I explained to both of them that this does slightly increased the risk of infection with mesh placement. However, this risk is minimal and typically if there does become an infection, it typically can be managed without removing the mesh. Full disclosure of this last night with patient's and then with her this morning. No evidence on exam or labs of any problem associated with this injury or the repair. Subjective Subjective Date/Time Seen: 12/31/22 08:05 Post Op day: 1 Patient reports: still having pain (Analgesics are helpful), tolerating liquids well, no flatus, no bowel movement and afebrile Interval history: Has been sitting up in the chair for about 3 hours this morning. Taking analgesics both IV and oral as needed for pain. No particular problems this morning Review of Systems Review of Systems: All systems reviewed & are unremarkable except as noted in HPI and below (HPI) Exam Const: General: cooperative, comfortable, no acute distress, alert and awake Nutritional Appearance: average body habitus Orientation/consciousness: patient oriented x3 GI: Inspection: incision (Dressing dry and intact, sanguinous drainage in CANDIE) GI Palp: Yes Firmness to palpation present (GI), Yes Tenderness to palpation present (GI) (Diffusely), No Guarding due to palpation present (GI) and No Rebound tenderness present Neuro: General: patient oriented x3 and no focal motor deficits Extrem: General: no calf tenderness and no edema Psych: Speech and movement: Clear speech present Affect: normal affect Attitude: cooperative Insight: Good insight present (Psych) Judgement: Good judgement present (Psych) Objective Data Vital Signs Vital Signs: Vital Signs - 24 hr 12/30/22 14:50 12/30/22 15:05 12/30/22 15:20 Temperature Pulse Rate 94 97 91 Respiratory Rate 12 12 12 Blood Pressure 108/51 L 96/58 L 105/55 L Pulse Oximetry 100 93 97 Oxygen Delivery Room Air Room Air Nasal Cannula Oxygen Flow Rate 2 12/30/22 15:35 12/30/22 16:05 12/30/22 16:35 Temperature Pulse Rate 86 89 85 Respiratory Rate 10 L 13 12 Blood Pressure 102/53 L 116/55 L 113/54 L Pulse Oximetry 96 98 94 Oxygen Delivery Nasal Cannula Nasal Cannula Nasal Cannula Oxygen Flow Rate 2 2 2 12/30/22 17:05 12/30/22 17:35 12/30/22 18:05 Temperature Pulse Rate 86 85 88 Respiratory Rate 12 12 14 Blood Pressure 108/57 L 123/61 121/62 Pulse Oximetry 95 96 97 Oxygen Delivery Nasal Cannula Nasal Cannula Nasal Cannula Oxygen Flow Rate 2 2 2 12/30/22 18:25 12/30/22 18:44 12/30/22 19:00 Temperature
[2022-12-31] MEDS: ESCITALOPRAM OXALATE 10 MG TABLET PO (20:18)
[2022-12-31] MEDS: SENNA/DOCUSATE SODIUM TABLET 2 TAB PO (20:18)
[2023-01-01] VITALS (12 sets, daily range): BP systolic 103–146; BP diastolic 60–69; PULSE 82–106; RESP 11–20; TEMP 36.8–37.1; O2SAT 92–96
[2023-01-01] MEDS: MORPHINE SULFATE (*CRX) 4 MG/ML INJ IV PUSH ×5 (01:45→23:44)
--- NOTE | 2023-01-01 03:11 | PC.NURSE ---
Central Tele monitor down during , charge Nurse at bedside to monitor.
[2023-01-01 05:02] LABS: Hematocrit 36.1 % (37.0-47.0); Hemoglobin 10.9 g/dL (12.0-15.0); Mean Corpuscular HGB Conc 30.2 g/dl (32-36); Mean Corpuscular Hemoglobin 29.6 pg (26-34); Mean Corpuscular Volume 98.1 fl (80-100); Mean Platelet Volume 10.8 fl (7.4-10.4); Platelet Count Result 146 k/mm3 (150-375); Red Blood Count 3.68 M/mm3 (4.2-5.4); Red Cell Distribution Width 13.3 % (11.5-14.5); White Blood Count 12.5 K/mm3 (4.5-10.0)
[2023-01-01] MEDS: HYDROcodone/acetaminophen (*CRX) 10-325 MG TABLET 1 TAB PO ×2 (05:09→10:52)
[2023-01-01 05:11] LABS: Anion Gap 7 mmol/L (8-16); Blood Urea Nitrogen 23 mg/dL (7-17); Calcium 8.3 mg/dL (8.4-10.2); Carbon Dioxide 23 mmol/L (22-30); Chloride 104 mmol/L (98-107); Estimated CRCL calculation 36 ml/min; Estimated Glomerular Filt Rate 41; Glucose 103 mg/dL (65-110); Potassium 4.1 mmol/L (3.4-5.0); Sodium 134 mmol/L (137-145)
[2023-01-01] MEDS: MORPHINE SULFATE (*CRX) 2 MG/ML INJ IV PUSH (08:22)
[2023-01-01] MEDS: polyethylene glycoL 3350 17 GM POWD.PACK PO (12:05)
[2023-01-01] MEDS: ASCORBIC ACID 500 MG TABLET 1000 MG PO (12:06)
[2023-01-01] MEDS: PANTOPRAZOLE 40 MG TABLET PO (12:06)
[2023-01-01] MEDS: SODIUM CHLORIDE 0.9% IV 1,000 ML 999 ML IV CONT (12:07)
[2023-01-01] MEDS: ENOXAPARIN 40 MG/0.4 ML SYRINGE SUB-Q (12:07)
[2023-01-01] MEDS: SODIUM CHLORIDE 0.9% IV 1,000 ML 100 ML IV CONT (12:08)
[2023-01-01] MEDS: ISOSORBIDE MONONITRATE 60 MG TAB.ER.24H PO (12:14)
--- NOTE | 2023-01-01 15:00 | PC.NURSE ---
Assume care of patient. Received report from Sonia Lovett RN. Updated patient on change with Sonia at bedside.
--- NOTE | 2023-01-01 16:47 | PM.PNGS ---
Progress Note: A&P Assessment and Plan (1) Ileus, postoperative: Code(s): K91.89 - Other postprocedural complications and disorders of digestive system; K56.7 - Ileus, unspecified Status: Acute Assessment and Plan: Patient has clinical findings of ileus. Unfortunate but not too surprising considering the extensive adhesiolysis that was required prior to starting her hernia our repair. These were very dense difficult adhesions and at least 90 minutes were spent with adhesiolysis. Additional adhesiolysis was required for oophorectomy as well. (2) Intra-abdominal adhesions: Code(s): K66.0 - Peritoneal adhesions (postprocedural) (postinfection) Status: Chronic Assessment and Plan: See above. Lysis of adhesions likely the cause of the ileus. (3) Incisional hernia without obstruction or gangrene: Code(s): K43.2 - Incisional hernia without obstruction or gangrene Status: Chronic Assessment and Plan: Repair intact. CANDIE output sanguinous and appropriate. (4) Sigmoid colon injury: Qualifiers: Encounter type: subsequent encounter Qualified Code(s): S36.503D - Unspecified injury of sigmoid colon, subsequent encounter Code(s): S36.503A - Unspecified injury of sigmoid colon, initial encounter Status: Acute Assessment and Plan: Disclosed to patient and her the night of surgery or the next day. No evidence of further problems. (5) Hypertension: Qualifiers: Hypertension type: primary hypertension Qualified Code(s): I10 - Essential (primary) hypertension Code(s): I10 - Essential (primary) hypertension Status: Chronic (6) Moderate mitral regurgitation: Code(s): I34.0 - Nonrheumatic mitral (valve) insufficiency Status: Chronic Subjective Subjective Date/Time Seen: 01/01/23 16:47 Post Op day: 2 Patient reports: no flatus, no bowel movement, nausea and afebrile Interval history: Patient feels bloated and nauseated like she could easily vomit. Knows that her abdomen is very distended. No bowel movement or flatus as yet postop Review of Systems Review of Systems: All systems reviewed & are unremarkable except as noted in HPI and below (HPI) Exam Const: General: cooperative, no acute distress, alert, awake and uncomfortable Orientation/consciousness: patient oriented x3 and No confusion GI: Inspection: distended and incision (Staple line dry and healing well, CANDIE sanguinous output) GI Palp: Yes Firmness to palpation present (GI), Yes Tenderness to palpation present (GI), No Guarding due to palpation present (GI), No Rigid due to palpation, No Hernia present, No Palpable mass present and No Rebound tenderness present Auscultation: absent bowel sounds Objective Data Vital Signs Vital Signs: Vital Signs - 24 hr 12/31/22 18:00 12/31/22 20:00 12/31/22 20:00 Temperature 37.6 C Pulse Rate 97 90 Respiratory Rate 20 Blood Pressure 113/55 L Pulse Oximetry 93 93 Oxygen Delivery Nasal Cannula Oxygen Flow Rate 2 12/31/22 20:00 12/31/22 22:00 01/01/23 00:00 Temperature Pulse Rate 83 89 94 Respiratory Rate Blood Pressure Pulse Oximetry Oxygen Delivery Oxygen Flow Rate 01/01/23 00:00 01/01/23 00:00 01/01/23 02:00 Temperature 37.1 C Pulse Rate 94 85 Respiratory Rate 15 Blood Pressure 113/60 Pulse Oximetry 95 95 Oxygen Delivery Nasal Cannula Oxygen Flow Rate 2 01/01/23 04:30 01/01/23 04:00 01/01/23 04:00 Temperature 36.8 C Pulse Rate 87 82 Respiratory Rate 16 Blood Pressure 129/69 Pulse Oximetry 95 95 Oxygen Delivery Nasal Cannula Oxygen Flow Rate 2 01/01/23 08:00 01/01/23 11:53 01/01/23 08:00 Temperature 36.8 C 36.9 C Pulse Rate 101 H 87 Respiratory Rate 20 16 Blood Pressure 146/69 H 146/69 H Pulse Oximetry 95 96 92 Oxygen Delivery Nasal Cannula Oxygen Flow Rate 2 01/01/23 12:00 01/01/23 08:00 01/01/23 1
--- NOTE | 2023-01-01 17:38 | PM.IMPN ---
Progress Note: A&P Assessment and Plan (1) Ileus, postoperative: Code(s): K91.89 - Other postprocedural complications and disorders of digestive system; K56.7 - Ileus, unspecified Status: Acute (2) Sigmoid colon injury: Qualifiers: Encounter type: subsequent encounter Qualified Code(s): S36.503D - Unspecified injury of sigmoid colon, subsequent encounter Code(s): S36.503A - Unspecified injury of sigmoid colon, initial encounter Status: Acute (3) Intra-abdominal adhesions: Code(s): K66.0 - Peritoneal adhesions (postprocedural) (postinfection) Status: Chronic (4) Hypertension: Qualifiers: Hypertension type: primary hypertension Qualified Code(s): I10 - Essential (primary) hypertension Code(s): I10 - Essential (primary) hypertension Status: Chronic (5) Urinary tract infection: Code(s): N39.0 - Urinary tract infection, site not specified Status: Acute (6) Community acquired pneumonia: Code(s): J18.9 - Pneumonia, unspecified organism Status: Acute Plan 67F w/ PMH diverticulitis s/p Giacomo s/p hysterectomy, ventral hernia, peritoneal adhesions, HTN, GERD underwent lysis of adhesions, ventral hernia repair with mesh, b/l oophorectomy and intra op sigmoid colon traction injury with repair on 12/30/22 1) post op 12/30 open lap - surgery managing. her pain is well controlled - monitor for signs of infection 2) hx of HTN - controlled. continue current mgmt acute hypoxic respiratory failure 3) leukocytosis - on admission her UA was slightly positive, then urine cultures grew group b strep. although that could be colonization, her CXR is concerning for infiltrates. given her burdensome surgery along with hypoxia, atelectasis and rhonchi on lung exam, we decided we would treat for at least 5 days for CAP. the was on board with this as well. - ceftriaxone and azithromycin started 01/01. monitor wbc and check pro jaylen to help dictate abx mgmt. - cont IS FEN: IVF, diet per surgery, liquids for now GI prophylaxis: protonix DVT prophylaxis: SCD's only for now Lines: PIV, NG tube, CANDIE drain Code Status: full code Dispo: stable 50+ minutes spent on chart review, patient interaction, family planning, and assessment and plan. Subjective Date/time seen: 01/01/23 17:38 Interval history: 67F w/ PMH diverticulitis s/p Giacomo s/p hysterectomy, ventral hernia, peritoneal adhesions, HTN, GERD presented for elective intraperitoneal surgery with Dr. Jason and Dr. Altamirano of OBGYN. Hospitalist team consulted for medical manage post op. Pt is laying comfortably in bed, without any complaints. Upon comprehensive questions she has no positive symptoms. She denies have lung conditions prior. Review of Systems Review of Systems: All systems reviewed & are unremarkable except as noted in HPI and below Exam Const: General: comfortable and no acute distress Eyes: Pupils: Equal, round and reactive pupils present Other: NG tube intact Resp: Effort & Inspection: normal respiratory effort Auscultation: rhonchi (left lower base) Cardio: Rate: regular rate Rhythm: regular rhythm GI: Inspection: distended GI Palp: Yes Firmness to palpation present (GI) and No Tenderness to palpation present (GI) Auscultation: normal bowel sounds Extrem: General: no edema Objective Data Vital Signs Vital Signs: Vital Signs - 24 hr 12/31/22 18:00 12/31/22 20:00 12/31/22 20:00 Temperature 99.6 F Pulse Rate 97 90 Respiratory Rate 20 Blood Pressure 113/55 L Pulse Oximetry 93 93 Oxygen Delivery Nasal Cannula Oxygen Flow Rate 2 12/31/22 20:00 12/31/22 22:00 01/01/23 00:00 Temperature Pulse Rate 83 89 94 Respiratory Rate Blood Pressure Pulse Oximetry Oxygen Delivery Oxygen Flow Rate 01/01/23 00:00 01/01/23 00:00 01/01/23 02:00 Temperature 98.7 F Pulse Rate 94 85 Respiratory Rate 15 Bloo
[2023-01-01] MEDS: cefTRIAXone 2 GM/NS 100 ML 2 GM/100 ML BAG IVPB (17:52)
[2023-01-01] MEDS: AZITHROMYCIN 500 MG/NS 250 ML 500 MG/250 ML BAG 250 MG IVPB (18:26)
[2023-01-01] MEDS: PROMETHAZINE HCL 25 MG/ML AMPUL 12.5 MG IV PUSH (18:46)
--- NOTE | 2023-01-01 22:46 | PM.GYNPNOP ---
TAX INVESTIGATOR - A/P Assessment and plan (1) Post-operative state: Code(s): Z98.890 - Other specified postprocedural states Status: Acute Assessment and Plan: 67 yo POD#2 from ventral hernia repair, lysis of adhesions, and bilateral oophorectomy pain controlled reviewed pathology with patient. pathology confirms bilateral ovaries WBC still mildly elevated but trending down, Hospitalist team treating for CAP Pt has not yet passed flatus. Management of ileus per Dr. Jason Continue post op care Postoperative Procedures: Procedures Operation Date: 12/30/22 08:30 Actual Procedure Side Surgeon p Incisional Hernia Repair with Mesh, Posterior Component Separation Not Applicable Jhon Jason MD s Bilateral Oophorectomy, Lysis of Adhesions Bilateral Juanpablo Altamirano MD Time Spent With Patient Time: Total time spent is greater than 50% in coordination of care (as documented) at patient's floor/unit and/or counseling patient: Time with patient: less than 15 minutes TAX INVESTIGATOR- PN:Subj Post-Op Subjective Date/time seen: 01/01/23 22:46 Interval history: 67 yo female POD#2 from ventral hernia repair, lysis of adhesions and bilateral oophorectomy. Pt is resting in bed. She states her pain is tolerable with PO meds. Pt has not ambulated today. Pt has not yet passed flatus. She is being treated for a post operative ileus. She is also being treated for CAP. Subjective: patient has no complaints and pain is well controlled TAX INVESTIGATOR - PN: Obj Data Vital Signs Vital Signs: Vital Signs - 24 hr 01/01/23 00:00 01/01/23 00:00 01/01/23 00:00 Temperature 98.7 F Pulse Rate 94 94 Respiratory Rate 15 Blood Pressure 113/60 Pulse Oximetry 95 95 Oxygen Delivery Nasal Cannula Oxygen Flow Rate 2 01/01/23 02:00 01/01/23 04:30 01/01/23 04:00 Temperature 98.3 F Pulse Rate 85 87 Respiratory Rate 16 Blood Pressure 129/69 Pulse Oximetry 95 95 Oxygen Delivery Nasal Cannula Oxygen Flow Rate 2 01/01/23 04:00 01/01/23 08:00 01/01/23 11:53 Temperature 98.3 F 98.4 F Pulse Rate 82 101 H 87 Respiratory Rate 20 16 Blood Pressure 146/69 H 146/69 H Pulse Oximetry 95 96 Oxygen Delivery Oxygen Flow Rate 01/01/23 08:00 01/01/23 12:00 01/01/23 08:00 Temperature Pulse Rate 106 H Respiratory Rate Blood Pressure Pulse Oximetry 92 94 Oxygen Delivery Nasal Cannula Nasal Cannula Oxygen Flow Rate 2 2 01/01/23 10:00 01/01/23 12:00 01/01/23 14:00 Temperature Pulse Rate 90 93 101 H Respiratory Rate Blood Pressure Pulse Oximetry Oxygen Delivery Oxygen Flow Rate 01/01/23 16:00 01/01/23 16:00 01/01/23 16:00 Temperature 98.2 F Pulse Rate 100 96 Respiratory Rate 20 Blood Pressure 107/61 Pulse Oximetry 95 95 Oxygen Delivery Nasal Cannula Oxygen Flow Rate 2 01/01/23 20:00 01/01/23 20:00 01/01/23 20:00 Temperature 98.8 F Pulse Rate 96 96 Respiratory Rate 11 L Blood Pressure 103/67 Pulse Oximetry 95 95 Oxygen Delivery Nasal Cannula Oxygen Flow Rate 2 01/01/23 22:00 Temperature Pulse Rate 94 Respiratory Rate Blood Pressure Pulse Oximetry Oxygen Delivery Oxygen Flow Rate Intake/Output Intake/Output: Intake & Output 12/29/22 12/30/22 12/31/22 01/01/23 23:59 23:59 23:59 23:59 Intake Total 2550 1780 850 Output Total 358 302 5197 Balance 2240 1040 -2025 Meds/Results Medications: Active Medications Generic Name Dose Route Start Last Admin Trade Name Freq PRN Reason Stop Dose Admin Acetaminophen 500 mg 12/30/22 18:29 Acetaminophen 500 Mg Tablet PO Q6H PRN Mild Pain (1-3) or Fever Hydrocodone Bitart/Acetaminophen 1 tab 12/30/22 18:29 12/31/22 04:53 Hydrocodone/Acetaminophen (*Crx) 5-325 Mg Tablet PO 1 tab Q4H PRN Administration Pain Rated 4-6 Hydrocodone Bitart/Acetaminophen 1 tab 12/30/22 18:29 01/01/23 10:52 Hydrocodone/Acetaminophen (*Crx) 10-325 Mg Tablet PO 1 ta
[2023-01-01] MEDS: SODIUM CHLORIDE 0.9% IV 1,000 ML 125 ML IV CONT (23:38)
[2023-01-02] VITALS (49 sets, daily range): BP systolic 117–154; BP diastolic 57–84; PULSE 79–99; RESP 10–28; TEMP 36.3–37.1; O2SAT 86–100
[2023-01-02] MEDS: MORPHINE SULFATE (*CRX) 4 MG/ML INJ IV PUSH ×4 (03:37→19:23)
--- NOTE | 2023-01-02 05:00 | ECG_ITS ---
Measurements Intervals [place] Rate: 89 P: 52 CT: 164 QRS: 6 QRSD: 96 T: 85 QT: 360 QTc: 440 Interpretive Statements SINUS RHYTHM POSSIBLE LEFT ATRIAL ENLARGEMENT CONSIDER INFERIOR INFARCT, AGE INDETERMINATE BORDERLINE ST-T WAVE ABNORMALITY- HIGH LATERAL LEADS ABNORMAL ECG COMPARED TO ECG 12/28/2022 14:28:15 NO SIGNIFICANT CHANGES Electronically Signed On 01-02-2023 7:48:45 MANAGER SCIENTIFIC by Augustine Zhang D.O.
[2023-01-02 05:21] LABS: Hematocrit 35.8 % (37.0-47.0); Hemoglobin 10.8 g/dL (12.0-15.0); Mean Corpuscular HGB Conc 30.2 g/dl (32-36); Mean Corpuscular Volume 96.2 fl (80-100); Platelet Count Result 180 k/mm3 (150-375); Red Blood Count 3.72 M/mm3 (4.2-5.4); Red Cell Distribution Width 13.2 % (11.5-14.5); White Blood Count 6.1 K/mm3 (4.5-10.0)
[2023-01-02 05:34] LABS: Anion Gap 9 mmol/L (8-16); Blood Urea Nitrogen 15 mg/dL (7-17); Calcium 8.1 mg/dL (8.4-10.2); Carbon Dioxide 23 mmol/L (22-30); Chloride 106 mmol/L (98-107); Estimated CRCL calculation 35 ml/min; Estimated Glomerular Filt Rate 41; Glucose 105 mg/dL (65-110); Potassium 4.2 mmol/L (3.4-5.0); Sodium 138 mmol/L (137-145)
[2023-01-02 05:43] LABS: Procalcitonin 8.3 ng/mL
--- NOTE | 2023-01-02 08:20 | PM.GYNPNOP ---
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 and plan (1) Post-operative state: Code(s): Z98.890 - Other specified postprocedural states Status: Acute Assessment and Plan: 67 yo POD#3 from ventral hernia repair, lysis of adhesions, and bilateral oophorectomy pain controlled, symptoms are improving daily Pt has NG tube for management of post op ileus, still no flatus will continue to follow peripherally Postoperative Procedures: Procedures Operation Date: 12/30/22 08:30 Actual Procedure Side Surgeon p Incisional Hernia Repair with Mesh, Posterior Component Separation Not Applicable Jhon Jason MD s Bilateral Oophorectomy, Lysis of Adhesions Bilateral Juanpablo Altamirano MD Postoperative day: 3 Postoperative status: post-op ileus Postoperative plan: routine post-op care Time Spent With Patient Time: Total time spent is greater than 50% in coordination of care (as documented) at patient's floor/unit and/or counseling patient: Time with patient: less than 15 minutes 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 Pt is resting in bed. She had an NG tube placed for her ileus. She has not yet passed flatus. She states her pain is improving daily. She is also being treated for CAP. Subjective: patient has no complaints and pain is well controlled HOUSEKEEPING ROOM INSPECTOR - PN: Obj Data Vital Signs Vital Signs: Vital Signs - 24 hr 01/01/23 11:53 01/01/23 12:00 01/01/23 10:00 Temperature 98.4 F Pulse Rate 87 90 Respiratory Rate 16 Blood Pressure 146/69 H Pulse Oximetry 96 94 Oxygen Delivery Nasal Cannula Oxygen Flow Rate 2 01/01/23 12:00 01/01/23 14:00 01/01/23 16:00 Temperature Pulse Rate 93 101 H 100 Respiratory Rate Blood Pressure Pulse Oximetry Oxygen Delivery Oxygen Flow Rate 01/01/23 16:00 01/01/23 16:00 01/01/23 20:00 Temperature 98.2 F Pulse Rate 96 Respiratory Rate 20 Blood Pressure 107/61 Pulse Oximetry 95 95 95 Oxygen Delivery Nasal Cannula Nasal Cannula Oxygen Flow Rate 2 2 01/01/23 20:00 01/01/23 20:00 01/01/23 22:00 Temperature 98.8 F Pulse Rate 96 96 94 Respiratory Rate 11 L Blood Pressure 103/67 Pulse Oximetry 95 Oxygen Delivery Oxygen Flow Rate 01/02/23 00:00 01/02/23 00:00 01/02/23 00:00 Temperature 98.6 F Pulse Rate 95 95 Respiratory Rate 11 L Blood Pressure 123/72 Pulse Oximetry 95 95 Oxygen Delivery Nasal Cannula Oxygen Flow Rate 2 01/02/23 02:00 01/02/23 04:00 01/02/23 04:00 Temperature Pulse Rate 92 90 Respiratory Rate Blood Pressure Pulse Oximetry 96 Oxygen Delivery Nasal Cannula Oxygen Flow Rate 2 01/02/23 04:00 01/02/23 06:00 Temperature 98.6 F Pulse Rate 90 89 Respiratory Rate 10 L Blood Pressure 118/72 Pulse Oximetry 96 Oxygen Delivery Oxygen Flow Rate Intake/Output Intake/Output: Intake & Output 12/30/22 12/31/22 01/01/23 01/02/23 23:59 23:59 23:59 23:59 Intake Total 2550 1780 2100 Output Total 845 391 0233 930 Balance 2240 1040 -574 -930 Meds/Results Medications: Active Medications Generic Name Dose Route Start Last Admin Trade Name Freq PRN Reason Stop Dose Admin Acetaminophen 500 mg 12/30/22 18:29 Acetaminophen 500 Mg Tablet PO Q6H PRN Mild Pain (1-3) or Fever Hydrocodone Bitart/Acetaminophen 1 tab 12/30/22 18:29 12/31/22 04:53 Hydrocodone/Acetaminophen (*Crx) 5-325 Mg Tablet PO 1 tab Q4H PRN Administration Pain Rated 4-6 Hydrocodone Bitart/Acetaminophen 1 tab 12/30/22 18:29 01/01/23 10:52 Hydrocodone/Acetaminophen (*Crx) 10-325 Mg Tablet PO 1 tab Q6H PRN Administration Pain Rated 7-10 Amlodipine Besylate 2.5 mg 12/31/22 09:00 01/01/23 10:00 Amlodipine Besylate 2.5 Mg Tablet PO Not Given DAILY DEMETRIO Ascorbic Acid 1,000 mg 12/31/22 09:00 01/01/23 12:06
[2023-01-02] MEDS: ENOXAPARIN 40 MG/0.4 ML SYRINGE SUB-Q (08:48)
[2023-01-02] MEDS: PANTOPRAZOLE SODIUM IV 40 MG VIAL IV PUSH (08:48)
[2023-01-02] MEDS: MORPHINE SULFATE (*CRX) 2 MG/ML INJ IV PUSH (09:08)
[2023-01-02] MEDS: SODIUM CHLORIDE 0.9% IV 1,000 ML 125 ML IV CONT ×2 (09:26→17:54)
[2023-01-02] MEDS: cefTRIAXone 2 GM/NS 100 ML 2 GM/100 ML BAG IVPB (12:59)
--- NOTE | 2023-01-02 13:00 | PM.IMPN ---
Progress Note: A&P Assessment and Plan (1) Hypertension: Qualifiers: Hypertension type: primary hypertension Qualified Code(s): I10 - Essential (primary) hypertension Code(s): I10 - Essential (primary) hypertension Status: Chronic (2) Community acquired pneumonia: Code(s): J18.9 - Pneumonia, unspecified organism Status: Acute (3) Urinary tract infection: Code(s): N39.0 - Urinary tract infection, site not specified Status: Acute Plan 67F w/ PMH diverticulitis s/p Giacomo s/p hysterectomy, ventral hernia, peritoneal adhesions, HTN, GERD underwent lysis of adhesions, ventral hernia repair with mesh, b/l oophorectomy and intra op sigmoid colon traction injury with repair on 12/30/22 1) post op 12/30 open lap - surgery managing. her pain is well controlled. still NPO. - monitor for signs of infection 2) hx of HTN - controlled. continue current mgmt 3) acute hypoxic respiratory failure - related to surgery and atelectasis and/or pna. - resolved. cont IS 4) leukocytosis - on admission her UA was slightly positive, then urine cultures grew group b strep. although that could be colonization, her CXR is concerning for infiltrates. given her burdensome surgery along with hypoxia, atelectasis and rhonchi on lung exam, we decided we would treat for at least 5 days for CAP. the was on board with this as well. - ceftriaxone and azithromycin started 01/01. white count now normal but procal is 8.3 on 01/02, we will trend that - could be related to open abdominal surgery 5) CKD - unclear baseline, the patient has had this for years and was supposed to see a dry end tester. it is stable and she is on IVF, ctm. FEN: IVF, diet per surgery, sips for now GI prophylaxis: protonix DVT prophylaxis: lovenox Lines: PIV, NG tube, CANDIE drain Code Status: full code Dispo: stable More than 25 minutes spent on chart review, patient interaction and assessment and plan. Subjective Date/time seen: 01/02/23 13:00 Interval history: NAOE. pt denies abdominal pain. she vomited once overnight when her NG tube drain was full. she denies cough or shortness of breath Review of Systems Review of Systems: All systems reviewed & are unremarkable except as noted in HPI and below Exam Const: General: comfortable and no acute distress Neck: Neck: supple Resp: Effort & Inspection: normal respiratory effort Auscultation: rhonchi left lower Cardio: Rate: regular rate Rhythm: regular rhythm Heart sounds: no gallops, no murmurs and no rubs GI: Inspection: distended GI Palp: No Tenderness to palpation present (GI) Extrem: General: no edema Objective Data Vital Signs Vital Signs: Vital Signs - 24 hr 01/01/23 14:00 01/01/23 16:00 01/01/23 16:00 Temperature Pulse Rate 101 H 100 Respiratory Rate Blood Pressure Pulse Oximetry 95 Oxygen Delivery Nasal Cannula Oxygen Flow Rate 2 01/01/23 16:00 01/01/23 20:00 01/01/23 20:00 Temperature 98.2 F 98.8 F Pulse Rate 96 96 Respiratory Rate 20 11 L Blood Pressure 107/61 103/67 Pulse Oximetry 95 95 95 Oxygen Delivery Nasal Cannula Oxygen Flow Rate 2 01/01/23 20:00 01/01/23 22:00 01/02/23 00:00 Temperature Pulse Rate 96 94 95 Respiratory Rate Blood Pressure Pulse Oximetry Oxygen Delivery Oxygen Flow Rate 01/02/23 00:00 01/02/23 00:00 01/02/23 02:00 Temperature 98.6 F Pulse Rate 95 92 Respiratory Rate 11 L Blood Pressure 123/72 Pulse Oximetry 95 95 Oxygen Delivery Nasal Cannula Oxygen Flow Rate 2 01/02/23 04:00 01/02/23 04:00 01/02/23 04:00 Temperature 98.6 F Pulse Rate 90 90 Respiratory Rate 10 L Blood Pressure 118/72 Pulse Oximetry 96 96 Oxygen Delivery Nasal Cannula Oxygen Flow Rate 2 01/02/23 06:00 01/02/23 08:37 01/02/23 08:05 Temperature 97.9 F Pulse Rate 89 91 Respiratory Rate 20 Blood Pressure 118/64 Pulse Oximetry 92 90 Oxy
[2023-01-02] MEDS: IBUPROFEN IV 800 MG/200 ML 800 MG/200 ML BAG 400 MG IVPB ×2 (14:50→21:35)
--- NOTE | 2023-01-02 14:52 | PM.PNGS ---
Progress Note: A&P Assessment and Plan (1) Incisional hernia without obstruction or gangrene: Code(s): K43.2 - Incisional hernia without obstruction or gangrene Status: Chronic Assessment and Plan: Patient underwent open incisional hernia repair with bilateral component separation. Placement of mesh was also done. She has decreased use of her IV narcotics. We will put her on a scheduled dose of IV ibuprofen. Encouraged her to get up and sit in a chair as much as possible. If she is able to ambulate better than hopefully get the Ewing catheter out tomorrow. Continue IV antibiotics for now for another day and hopefully she remains afebrile her white blood cell count remains normal. We may be able to stop her IV antibiotics tomorrow. Continue supportive management in the intensive care unit. Subjective Subjective Date/Time Seen: 01/02/23 14:52 Interval history: Patient states her pain is better but still requiring some IV narcotics. She has been getting some p.r.n. IV ibuprofen as well. States she has had a small amount of flatus but no bowel movements. She states she still feels pretty distended. NG tube output has been about 900cc today. However she has been taking quite a few ice chips. White blood cell count is normalized. Electrolytes are normal as well. Creatinine is stable at about 1.2 to 1.3. Exam GI: Other: Abdomen is soft and moderately distended. Incision is dressed and dry. CANDIE drain is serosanguineous. Output is still too high to remove drain. Decreased bowel sounds. Objective Data Vital Signs Vital Signs: Vital Signs - 24 hr 01/01/23 16:00 01/01/23 16:00 01/01/23 16:00 Temperature 36.8 C Pulse Rate 100 96 Respiratory Rate 20 Blood Pressure 107/61 Pulse Oximetry 95 95 Oxygen Delivery Nasal Cannula Oxygen Flow Rate 2 01/01/23 20:00 01/01/23 20:00 01/01/23 20:00 Temperature 37.1 C Pulse Rate 96 96 Respiratory Rate 11 L Blood Pressure 103/67 Pulse Oximetry 95 95 Oxygen Delivery Nasal Cannula Oxygen Flow Rate 2 01/01/23 22:00 01/02/23 00:00 01/02/23 00:00 Temperature Pulse Rate 94 95 Respiratory Rate Blood Pressure Pulse Oximetry 95 Oxygen Delivery Nasal Cannula Oxygen Flow Rate 2 01/02/23 00:00 01/02/23 02:00 01/02/23 04:00 Temperature 37.0 C Pulse Rate 95 92 90 Respiratory Rate 11 L Blood Pressure 123/72 Pulse Oximetry 95 Oxygen Delivery Oxygen Flow Rate 01/02/23 04:00 01/02/23 04:00 01/02/23 06:00 Temperature 37.0 C Pulse Rate 90 89 Respiratory Rate 10 L Blood Pressure 118/72 Pulse Oximetry 96 96 Oxygen Delivery Nasal Cannula Oxygen Flow Rate 2 01/02/23 08:37 01/02/23 08:05 01/02/23 08:00 Temperature 36.6 C Pulse Rate 91 Respiratory Rate 20 Blood Pressure 118/64 Pulse Oximetry 92 90 92 Oxygen Delivery Nasal Cannula Nasal Cannula Oxygen Flow Rate 1.5 2 01/02/23 13:01 01/02/23 12:00 01/02/23 08:00 Temperature 36.3 C L Pulse Rate 98 90 Respiratory Rate 24 H Blood Pressure 154/84 H Pulse Oximetry 99 96 Oxygen Delivery Nasal Cannula Oxygen Flow Rate 2 01/02/23 10:00 01/02/23 12:00 01/02/23 14:00 Temperature Pulse Rate 82 97 86 Respiratory Rate Blood Pressure Pulse Oximetry Oxygen Delivery Oxygen Flow Rate Intake/Output Intake/Output: Intake & Output 12/30/22 12/31/22 01/01/23 01/02/23 23:59 23:59 23:59 23:59 Intake Total 2550 1780 2100 1000 Output Total 419 039 1429 2430 Balance 2240 2387 -407 -3060 Meds/Results Medications: Active Medications Generic Name Dose Route Start Last Admin Trade Name Freq PRN Reason Stop Dose Admin Acetaminophen 500 mg 12/30/22 18:29 Acetaminophen 500 Mg Tablet PO Q6H PRN Mild Pain (1-3) or Fever Hydrocodone Bitart/Acetaminophen 1 tab 12/30/22 18:29 12/31/22 04:53 Hydrocodone/Acetaminophen (*Crx) 5-325 Mg Tablet PO 1 tab Q4H PRN A
[2023-01-03] VITALS (17 sets, daily range): BP systolic 107–159; BP diastolic 73–94; PULSE 72–89; RESP 12–20; TEMP 36.4–36.6; O2SAT 94–100
[2023-01-03] MEDS: SODIUM CHLORIDE 0.9% IV 1,000 ML 125 ML IV CONT ×3 (03:56→23:41)
[2023-01-03 04:43] LABS: Hematocrit 38.5 % (37.0-47.0); Hemoglobin 11.7 g/dL (12.0-15.0); Mean Corpuscular HGB Conc 30.4 g/dl (32-36); Mean Corpuscular Hemoglobin 29.3 pg (26-34); Mean Corpuscular Volume 96.5 fl (80-100); Mean Platelet Volume 10.8 fl (7.4-10.4); Platelet Count Result 193 k/mm3 (150-375); Red Blood Count 3.99 M/mm3 (4.2-5.4); White Blood Count 6.1 K/mm3 (4.5-10.0)
[2023-01-03 04:58] LABS: Anion Gap 10 mmol/L (8-16); Blood Urea Nitrogen 13 mg/dL (7-17); Calcium 8.2 mg/dL (8.4-10.2); Carbon Dioxide 22 mmol/L (22-30); Chloride 108 mmol/L (98-107); Estimated CRCL calculation 49 ml/min; Estimated Glomerular Filt Rate > 60; Glucose 77 mg/dL (65-110); Magnesium 1.8 mg/dL (1.6-2.3); Potassium 3.7 mmol/L (3.4-5.0); Sodium 140 mmol/L (137-145)
[2023-01-03] MEDS: IBUPROFEN IV 800 MG/200 ML 800 MG/200 ML BAG 400 MG IVPB ×3 (05:12→22:00)
[2023-01-03 05:15] LABS: Procalcitonin 5.2 ng/mL
[2023-01-03] MEDS: MORPHINE SULFATE (*CRX) 4 MG/ML INJ IV PUSH (05:16)
--- NOTE | 2023-01-03 08:32 | PM.IMPN ---
Progress Note: A&P Assessment and Plan (1) Hypertension: Qualifiers: Hypertension type: primary hypertension Qualified Code(s): I10 - Essential (primary) hypertension Code(s): I10 - Essential (primary) hypertension Status: Chronic (2) Sigmoid colon injury: Qualifiers: Encounter type: subsequent encounter Qualified Code(s): S36.503D - Unspecified injury of sigmoid colon, subsequent encounter Code(s): S36.503A - Unspecified injury of sigmoid colon, initial encounter Status: Acute (3) Ileus, postoperative: Code(s): K91.89 - Other postprocedural complications and disorders of digestive system; K56.7 - Ileus, unspecified Status: Acute (4) Urinary tract infection: Code(s): N39.0 - Urinary tract infection, site not specified Status: Acute (5) Community acquired pneumonia: Code(s): J18.9 - Pneumonia, unspecified organism Status: Acute Plan 67F w/ PMH diverticulitis s/p Giacomo s/p hysterectomy, ventral hernia, peritoneal adhesions, HTN, GERD underwent lysis of adhesions, ventral hernia repair with mesh, b/l oophorectomy and intra op sigmoid colon traction injury with repair on 12/30/22 1) post op 12/30 open lap, post op ileus - surgery managing. her pain is well controlled. still NPO. on IVF - monitor for signs of infection - NG tube 700cc output overnight, night before - 1200 cc 2) hx of HTN - controlled. continue current mgmt 3) acute hypoxic respiratory failure - related to surgery and atelectasis and/or pna. - resolved. cont IS 4) leukocytosis - on admission her UA was slightly positive, then urine cultures grew group b strep. although that could be colonization, her CXR is concerning for infiltrates. given her burdensome surgery along with hypoxia, atelectasis and rhonchi on lung exam, we decided we would treat for at least 5 days for CAP. the was on board with this as well. - ceftriaxone and azithromycin started 01/01. 01/03 white count now normal. procal from 8.3 to 5, this could represent adequately treated infection or resolution of inflammatory state 2/2 burdensome open lap. 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 01/03 sCR from 1.3 to 0.9. CTM FEN: IVF, diet per surgery, sips for now GI prophylaxis: protonix DVT prophylaxis: lovenox Lines: PIV, NG tube, CANDIE drain Code Status: full code Dispo: stable More than 25 minutes spent on chart review, patient interaction and assessment and plan. Subjective Date/time seen: 01/03/23 08:32 Interval history: NAOE. pt denies nausea and vomiting, in fact she wants to eat. she reports stomach rumbling but no flatus yet. denies abdominal pain, fever, shortness of breath, cough, or chest pain Review of Systems Review of Systems: All systems reviewed & are unremarkable except as noted in HPI and below Exam Const: General: comfortable and no acute distress Eyes: Pupils: Equal, round and reactive pupils present Neck: Neck: supple Resp: Effort & Inspection: normal respiratory effort Auscultation: no crackles and rhonchi left lower Cardio: Rate: regular rate Rhythm: regular rhythm Heart sounds: no gallops, no murmurs and no rubs GI: Inspection: distended GI Palp: No Tenderness to palpation present (GI) Other: distention improved Extrem: General: no edema Objective Data Vital Signs Vital Signs: Vital Signs - 24 hr 01/02/23 08:37 01/02/23 13:01 01/02/23 12:00 Temperature 97.9 F 97.4 F L Pulse Rate 91 98 Respiratory Rate 20 24 H Blood Pressure 118/64 154/84 H Pulse Oximetry 92 99 96 Oxygen Delivery Nasal Cannula Oxygen Flow Rate 2 01/02/23 10:00 01/02/23 12:00 01/02/23 14:00 Temperature Pulse Rate 82 97 86 Respiratory Rate Blood Pressure Pulse Oximetry Oxygen Delivery Oxygen Flow Rate 01/02/23 08:45 01/02/23 09:00 01/02/23 09:15 Temperature Puls
[2023-01-03] MEDS: PANTOPRAZOLE SODIUM IV 40 MG VIAL IV PUSH (09:07)
[2023-01-03] MEDS: ENOXAPARIN 40 MG/0.4 ML SYRINGE SUB-Q (09:07)
[2023-01-03] MEDS: BISACODYL 10 MG SUPPOSITORY RECTAL (11:24)
[2023-01-03] MEDS: cefTRIAXone 2 GM/NS 100 ML 2 GM/100 ML BAG IVPB (11:24)
--- NOTE | 2023-01-03 12:35 | PM.PNGS ---
Progress Note: A&P Assessment and Plan (1) Incisional hernia without obstruction or gangrene: Code(s): K43.2 - Incisional hernia without obstruction or gangrene Status: Chronic Assessment and Plan: Patient is slowly improving after abdominal wall reconstruction bilateral abdominal wall component separation placement of mesh. Pain is better controlled with oral pain medications with the addition of scheduled IV ibuprofen. She is able to get up out of bed to a chair now. Abdominal distension ileus is improved with a decrease in use of narcotics. Nasogastric tube output is decreasing we will go ahead and get with clamping schedule 6hours on suction a 6hours office suction and repeating this cycle. She is passing flatus but has not had a bowel movement. We will go ahead and give her a Dulcolax suppository today. Continue the CANDIE drain as the output is still over 100cc per day. Output is serous. Hopefully can remove the nasogastric tube in within the next 24hours and start her on some diet. Subjective Subjective Date/Time Seen: 01/03/23 12:35 Interval history: Patient seems to be doing much better today. She states her pain is much better controlled. She was on scheduled IV ibuprofen. Passing flatus but no bowel movement yet. NG tube output was about 700cc overnight and was down [id number] for this morning. She is up out of bed sitting in a chair. Exam GI: Other: Abdomen is soft nondistended. Bowel sounds are noted. Incisions clean and dry and dressed. CANDIE drain output is blood tinged serous fluid. Drain output was 140cc the past 24hours. Urinary Catheter: Urinary Catheter: patent and draining and urine clear ( Output from the Ewing catheter is 2500cc the past 24hours.) Objective Data Vital Signs Vital Signs: Vital Signs - 24 hr 01/02/23 13:01 01/02/23 14:00 01/02/23 12:45 Temperature 36.3 C L Pulse Rate 98 86 91 Respiratory Rate 24 H 18 Blood Pressure 154/84 H Pulse Oximetry 99 100 Oxygen Delivery Oxygen Flow Rate 01/02/23 12:56 01/02/23 13:00 01/02/23 13:15 Temperature Pulse Rate 97 95 94 Respiratory Rate 19 21 H 15 Blood Pressure 154/84 H Pulse Oximetry 99 99 96 Oxygen Delivery Oxygen Flow Rate 01/02/23 13:30 01/02/23 13:45 01/02/23 14:00 Temperature Pulse Rate 97 91 88 Respiratory Rate 23 H 18 11 L Blood Pressure Pulse Oximetry 97 98 98 Oxygen Delivery Oxygen Flow Rate 01/02/23 14:15 01/02/23 14:30 01/02/23 14:45 Temperature Pulse Rate 86 87 90 Respiratory Rate 15 13 21 H Blood Pressure Pulse Oximetry 97 97 97 Oxygen Delivery Oxygen Flow Rate 01/02/23 15:00 01/02/23 15:15 01/02/23 15:30 Temperature Pulse Rate 86 95 88 Respiratory Rate 21 H 20 24 H Blood Pressure Pulse Oximetry 97 97 Oxygen Delivery Oxygen Flow Rate 01/02/23 15:45 01/02/23 16:00 01/02/23 16:15 Temperature Pulse Rate 90 84 87 Respiratory Rate 24 H 20 17 Blood Pressure Pulse Oximetry 96 97 97 Oxygen Delivery Oxygen Flow Rate 01/02/23 16:30 01/02/23 16:36 01/02/23 16:00 Temperature 36.5 C Pulse Rate 91 Respiratory Rate 21 H Blood Pressure 117/83 Pulse Oximetry 93 99 Oxygen Delivery Nasal Cannula Oxygen Flow Rate 2 01/02/23 16:00 01/02/23 18:00 01/02/23 20:00 Temperature Pulse Rate 82 82 79 Respiratory Rate Blood Pressure Pulse Oximetry Oxygen Delivery Oxygen Flow Rate 01/02/23 20:00 01/02/23 20:00 01/02/23 22:00 Temperature 37.1 C Pulse Rate 79 88 Respiratory Rate 16 Blood Pressure 146/71 H Pulse Oximetry 93 93 Oxygen Delivery Nasal Cannula Oxygen Flow Rate 1 01/03/23 00:00 01/03/23 00:00 01/03/23 00:00 Temperature 36.5 C Pulse Rate 72 72 Respiratory Rate 12 Blood Pressure 137/73 Pulse Oximetry 97 97 Oxygen Delivery Nasal Cannula Oxygen Flow Rate 1 01/03/23 02:00 01/03/23 04:00 01/03/23 04:00 [facility]
[2023-01-03] MEDS: MORPHINE SULFATE (*CRX) 2 MG/ML INJ IV PUSH (15:33)
[2023-01-03 16:39] LABS: Glucose Point of Care 74 mg/dl (65-105)
[2023-01-03] MEDS: ESCITALOPRAM OXALATE 10 MG TABLET PO (21:03)
[2023-01-04] VITALS (15 sets, daily range): BP systolic 150–170; BP diastolic 68–85; PULSE 63–84; RESP 16–20; TEMP 35.8–36.5; O2SAT 96–100
[2023-01-04 05:16] LABS: Basophils Absolute Auto 0.1 K/mm3 (0.0-0.1); Eosinophils Absolute Auto 0.4 K/mm3 (0-0.3); Eosinophils Percent Auto 4.7 % (0-4.4); Hematocrit 36.8 % (37.0-47.0); Hemoglobin 11.2 g/dL (12.0-15.0); Immature Granulocyte Absolute 0.51 K/mm3 (0.00-0.031); Immature Granulocyte Percent A 5.8 % (0-0.5); Lymphocytes Absolute Auto 1.04 K/mm3 (0.9-3.2); Lymphocytes Percent Auto 11.9 % (18.3-44.2); Mean Corpuscular HGB Conc 30.4 g/dl (32-36); Mean Corpuscular Hemoglobin 28.8 pg (26-34); Mean Corpuscular Volume 94.6 fl (80-100); Monocytes Absolute Auto 0.6 K/mm3 (0.1-0.6); Monocytes Percent Auto 6.5 % (2.6-8.5); Neutrophils Absolute Auto 6.1 K/mm3 (1.3-6.7); Neutrophils Percent Auto 70.1 % (45.5-73.1); Platelet Count Result 220 k/mm3 (150-375); Red Blood Count 3.89 M/mm3 (4.2-5.4); Red Cell Distribution Width 12.7 % (11.5-14.5); White Blood Count 8.8 K/mm3 (4.5-10.0)
[2023-01-04 05:33] LABS: Anion Gap 13 mmol/L (8-16); Blood Urea Nitrogen 10 mg/dL (7-17); Calcium 8.5 mg/dL (8.4-10.2); Carbon Dioxide 20 mmol/L (22-30); Chloride 106 mmol/L (98-107); Estimated CRCL calculation 56 ml/min; Estimated Glomerular Filt Rate > 60; Glucose 82 mg/dL (65-110); Magnesium 1.6 mg/dL (1.6-2.3); Phosphorus 2.7 mg/dL (2.5-4.5); Potassium 3.4 mmol/L (3.4-5.0); Sodium 139 mmol/L (137-145)
[2023-01-04 05:47] LABS: Procalcitonin 2.6 ng/mL
[2023-01-04] MEDS: IBUPROFEN IV 800 MG/200 ML 800 MG/200 ML BAG 400 MG IVPB ×3 (05:59→22:42)
[2023-01-04] MEDS: MORPHINE SULFATE (*CRX) 4 MG/ML INJ IV PUSH (06:18)
[2023-01-04] MEDS: SODIUM CHLORIDE 0.9% IV 1,000 ML 125 ML IV CONT (09:10)
[2023-01-04] MEDS: PANTOPRAZOLE SODIUM IV 40 MG VIAL IV PUSH (09:10)
[2023-01-04] MEDS: ENOXAPARIN 40 MG/0.4 ML SYRINGE SUB-Q (09:10)
[2023-01-04] MEDS: amLODIPine BESYLATE 2.5 MG TABLET PO (12:36)
[2023-01-04] MEDS: ISOSORBIDE MONONITRATE 60 MG TAB.ER.24H PO (12:37)
[2023-01-04] MEDS: KCL 20MEQ/0.9% SOD CHL 1,000 ML 80 ML IV CONT (12:37)
[2023-01-04] MEDS: cefTRIAXone 2 GM/NS 100 ML 2 GM/100 ML BAG IVPB (12:40)
--- NOTE | 2023-01-04 13:34 | PM.PNGS ---
Progress Note: A&P Assessment and Plan (1) Incisional hernia without obstruction or gangrene: Code(s): K43.2 - Incisional hernia without obstruction or gangrene Status: Chronic Assessment and Plan: Patient continues to slowly improve. Pain control improved through the weekend with IV Ibuprofen and morphine for breakthrough pain. Will clamp her NG tube and try clear liquids. Once tolerating an oral diet, we could start transitioning to oral pain medication. Will discontinue her Tobar catheter today. Continue to monitor CANDIE drain. Her potassium was 3.4 this morning. I will switch her IV fluids to contain KCL and decrease the rate to 80 mL/hr. Will repeat labs again tomorrow. (2) Ileus: Code(s): K56.7 - Ileus, unspecified Status: Acute Assessment and Plan: Improving. Tolerating the NG clamping trial and passing flatus today. Will clamp her NG tube and try clear liquids. If she is able to tolerate clears, then we may be able to remove her NG tube in the next 1-2 days. Encouraged getting up and walking the halls today. Plan I have discussed the patient's case and plan of care with Dr. Jason. Subjective Subjective Date/Time Seen: 01/04/23 13:34 Post Op day: 5 (Lengthy adhesiolysis, repair multiple ventral hernias totaling 17.5 cm, bilateral transversus abdominis myofascial flap advancement, 5 cm on the left, 4 cm on the right. Repair injury to sigmoid colon) Patient reports: pain is less, flatus, no bowel movement and afebrile Interval history: Chart reviewed. Patient in moved out of ICU to IMU this weekend. She has an ileus with an NG tube in place that has been on a clamping trial yesterday and last night. There was only 240 cc output from the NG tube overnight when on suction. She is passing flatus but no BM yet since surgery. She is still having incisional pain, but feels this has improved through the weekend and is currently controlled with the scheduled IV Ibuprofen with morphine as needed for breakthrough pain. She has some abdominal pain this morning and had IV morphine at the end of her clamping trial. She denies any nausea or bloating when the NG is clamped. She has a tobar catheter in place with good urine output. She has been able to get up to chair and ambulated in the room but has not been walking much due to all her lines/tubes. She is currently on 1 liter nasal cannula and the nurse took this off while I was in the room and will check her oxygen saturation again to see if she can stay off oxygen. No other complaints at this time. Review of Systems Constitutional: Constitutional: Reports no additional constitutional complaints, Denies chills, Denies fever(s) and Denies weakness Cardiovascular: Cardiovascular: Reports no additional cardiovascular complaints, Denies chest pain and Denies pedal edema Respiratory: Respiratory: Reports no additional respiratory complaints, Denies cough and Denies dyspnea Gastrointestinal: Gastrointestinal: Reports as per HPI and Reports no additional gastrointestinal complaints Exam Const: General: comfortable and no acute distress Orientation/consciousness: patient oriented x3 GI: Inspection: non-distended, incision (incision dry and healing well with bill intact, no erythema) and other (CANDIE drain with serosanguineous drainage) GI Palp: Yes Tenderness to palpation present (GI) (incisional) Auscultation: normal bowel sounds Urinary Catheter: Urinary Catheter: patent and draining and urine clear Extrem: General: no calf tenderness and no edema Psych: Insight: Good insight present (Psych) Judgement: Good judgement present (Psych) Objective Data Vital Signs Vital Signs: Vital Signs - 24 hr 01/03/23 14:00 01/03/23 15:08 01/03/23 16:00 Temperature 97.6 F Pulse Rate 81 83 82 Respiratory Rate 17 16 Blood Pressure 155/76 H Pulse Oximetry 99 99 Oxygen Delivery Nasal Cannula Oxygen Flow Rate 1 01/03/23 16:00 01/03/23 20:05 01/03/23 20:
--- NOTE | 2023-01-04 14:07 | PM.IMPN ---
Progress Note: A&P Assessment and Plan (1) Ileus: Code(s): K56.7 - Ileus, unspecified Status: Acute (2) Community acquired pneumonia: Code(s): J18.9 - Pneumonia, unspecified organism Status: Acute (3) Urinary tract infection: Code(s): N39.0 - Urinary tract infection, site not specified Status: Acute (4) Sigmoid colon injury: Qualifiers: Encounter type: subsequent encounter Qualified Code(s): S36.503D - Unspecified injury of sigmoid colon, subsequent encounter Code(s): S36.503A - Unspecified injury of sigmoid colon, initial encounter Status: Acute Plan 67F w/ PMH diverticulitis s/p Giacomo s/p hysterectomy, ventral hernia, peritoneal adhesions, HTN, GERD underwent lysis of adhesions, ventral hernia repair with mesh, b/l oophorectomy and intra op sigmoid colon traction injury with repair on 12/30/22 1) post op 12/30 open lap, post op ileus - surgery managing. her pain is well controlled. tube is clamped today and she is tolerating CLD. flatus continues. no BM - monitor for signs of infection. IVF 2) hx of HTN - controlled. continue current mgmt 3) acute hypoxic respiratory failure - related to surgery and atelectasis and/or pna. - resolved. cont IS 4) leukocytosis - on admission her UA was slightly positive, then urine cultures grew group b strep. although that could be colonization, her CXR is concerning for infiltrates. given her burdensome surgery along with hypoxia, atelectasis and rhonchi on lung exam, we decided we would treat for at least 5 days for CAP. the was on board with this as well. - ceftriaxone and azithromycin started 01/01. procal and wbc coming down nicely. finish 5th day tomorrow - 1 dose PO azithro and 1 dose PO cefdinir 5) CKD - unclear baseline, the patient has had this for years and was supposed to see a partner. 01/03 sCR from 1.3 to 0.9. CTM FEN: IVF, diet per surgery, sips for now GI prophylaxis: protonix DVT prophylaxis: lovenox Lines: PIV, NG tube, CANDIE drain Code Status: full code Dispo: stable More than 35 minutes spent on chart review, patient interaction and assessment and plan. Subjective Date/time seen: 01/04/23 14:07 Interval history: NAOE. the pt is ecstatic, she drank water, juice and broth. tolerated it well. continues with flatus Review of Systems Review of Systems: All systems reviewed & are unremarkable except as noted in HPI and below Exam Const: General: comfortable and no acute distress Eyes: Pupils: Equal, round and reactive pupils present Resp: Effort & Inspection: normal respiratory effort Auscultation: clear to auscultation bilaterally Cardio: Rate: regular rate Rhythm: regular rhythm Heart sounds: no gallops, no murmurs and no rubs GI: Other: NG tube , stump shooter bilious fluid in drain. abdominal distended but improved from day prior. no TTP. dressings C/D/I Extrem: General: no edema Objective Data Vital Signs Vital Signs: Vital Signs - 24 hr 01/03/23 15:08 01/03/23 16:00 01/03/23 16:00 Temperature 97.6 F Pulse Rate 83 82 83 Respiratory Rate 17 16 Blood Pressure 155/76 H Pulse Oximetry 99 99 Oxygen Delivery Nasal Cannula Oxygen Flow Rate 1 01/03/23 20:05 01/03/23 20:00 01/03/23 20:00 Temperature 97.9 F Pulse Rate 81 89 Respiratory Rate 16 Blood Pressure 159/75 H Pulse Oximetry 100 98 Oxygen Delivery Nasal Cannula Oxygen Flow Rate 1 01/03/23 22:00 01/03/23 23:14 01/04/23 00:00 Temperature 97.8 F Pulse Rate 86 81 63 Respiratory Rate 16 Blood Pressure 159/79 H Pulse Oximetry 97 Oxygen Delivery Oxygen Flow Rate 01/04/23 00:00 01/04/23 02:00 01/04/23 04:07 Temperature 97.7 F Pulse Rate 68 84 Respiratory Rate 16 Blood Pressure 158/77 H Pulse Oximetry 100 98 Oxygen Delivery Nasal Cannula Oxygen Flow Rate 1 01/04/23 04:00 01/04/23 04:00 01/04/23 06:00 Temperature Pulse Rate 84 84 78
[2023-01-04] MEDS: AZITHROMYCIN 250 MG TABLET 500 MG PO (17:14)
[2023-01-04] MEDS: HYDROcodone/acetaminophen (*CRX) 5-325 MG TABLET 1 TAB PO (17:18)
[2023-01-04] MEDS: ESCITALOPRAM OXALATE 10 MG TABLET PO (22:41)
[2023-01-05] VITALS (7 sets, daily range): BP systolic 146–162; BP diastolic 72–86; PULSE 76–89; RESP 16–20; TEMP 36.1–36.4; O2SAT 96–99
[2023-01-05] MEDS: KCL 20MEQ/0.9% SOD CHL 1,000 ML 80 ML IV CONT (01:10)
[2023-01-05 05:21] LABS: Hematocrit 34.7 % (37.0-47.0); Mean Corpuscular HGB Conc 31.7 g/dl (32-36); Mean Corpuscular Volume 91.6 fl (80-100); Platelet Count Result 249 k/mm3 (150-375); Red Blood Count 3.79 M/mm3 (4.2-5.4); Red Cell Distribution Width 12.5 % (11.5-14.5); White Blood Count 9.5 K/mm3 (4.5-10.0)
[2023-01-05 05:41] LABS: Anion Gap 8 mmol/L (8-16); Blood Urea Nitrogen 8 mg/dL (7-17); Calcium 8.7 mg/dL (8.4-10.2); Carbon Dioxide 26 mmol/L (22-30); Chloride 107 mmol/L (98-107); Estimated CRCL calculation 55 ml/min; Estimated Glomerular Filt Rate > 60; Glucose 110 mg/dL (65-110); Potassium 3.3 mmol/L (3.4-5.0); Sodium 141 mmol/L (137-145)
[2023-01-05 07:11] LABS: Band Neutrophils Percent 2 % (0-6); Eosinophils Absolute Manual 0.47 K/mm3 (0.02-0.5); Eosinophils Percent Manual 5 % (0-4); Lymphocytes Absolute Manual 1.14 K/mm3 (1.1-4.5); Lymphocytes Percent Manual 12 % (18-44); Monocytes Absolute Manual 0.66 K/mm3 (0.1-0.90); Monocytes Percent Manual 7 % (3-9); Neutrophils Absolute Manual 6.74 K/mm3 (1.7-7.2); Neutrophils Percent Manual 69 % (46-73); Total Cells Counted 100
[2023-01-05 07:12] LABS: Blastocytes 1 %; Metamyelocytes Percent 2 %; Myelocytes Percent 2 %; Platelet Estimate Adequate (Adequate); Schistocytes None Seen (NORMAL)
[2023-01-05] MEDS: IBUPROFEN IV 800 MG/200 ML 800 MG/200 ML BAG 400 MG IVPB (07:17)
[2023-01-05] MEDS: ENOXAPARIN 40 MG/0.4 ML SYRINGE SUB-Q (08:44)
[2023-01-05] MEDS: amLODIPine BESYLATE 2.5 MG TABLET PO (08:44)
[2023-01-05] MEDS: ISOSORBIDE MONONITRATE 60 MG TAB.ER.24H PO (08:44)
[2023-01-05] MEDS: CEFDINIR 300 MG CAPSULE PO ×2 (08:44→20:44)
[2023-01-05] MEDS: polyethylene glycoL 3350 17 GM POWD.PACK PO (08:44)
[2023-01-05] MEDS: ASCORBIC ACID 500 MG TABLET 1000 MG PO (08:44)
[2023-01-05] MEDS: HYDROcodone/acetaminophen (*CRX) 5-325 MG TABLET 1 TAB PO (08:47)
[2023-01-05] MEDS: PANTOPRAZOLE 40 MG TABLET PO (08:47)
[2023-01-05] MEDS: POTASSIUM CHLORIDE 20 MEQ ER TABLET 40 MEQ PO (10:00)
--- NOTE | 2023-01-05 12:08 | PM.PNGS ---
Progress Note: A&P Assessment and Plan (1) Incisional hernia without obstruction or gangrene: Code(s): K43.2 - Incisional hernia without obstruction or gangrene Status: Chronic Assessment and Plan: Repair with mesh and posterior component separation looks good. Wound healing well. Repair is intact. Will get up and ambulate more today. CANDIE drain was removed today. NG tube was removed today as well. Advanced to full liquid diet (2) Intra-abdominal adhesions: Code(s): K66.0 - Peritoneal adhesions (postprocedural) (postinfection) Status: Chronic Assessment and Plan: Status post extensive adhesiolysis at time of hernia repair (3) Sigmoid colon injury: Qualifiers: Encounter type: subsequent encounter Qualified Code(s): S36.503D - Unspecified injury of sigmoid colon, subsequent encounter Code(s): S36.503A - Unspecified injury of sigmoid colon, initial encounter Status: Acute Assessment and Plan: Repaired intraoperatively. No evidence of problems from this (4) Ileus, postoperative: Code(s): K91.89 - Other postprocedural complications and disorders of digestive system; K56.7 - Ileus, unspecified Status: Acute Assessment and Plan: Seems to be pretty much resolved. Patient had bowel movement yesterday and tolerated liquids well. NG tube removed this morning. Diet being slowly advanced. (5) Moderate mitral regurgitation: Code(s): I34.0 - Nonrheumatic mitral (valve) insufficiency Status: Chronic Assessment and Plan: Stable with no signs a written me a or congestive heart failure. Subjective Subjective Date/Time Seen: 01/05/23 12:08 Post Op day: #6 Patient reports: feels better, pain is less, tolerating liquids well, voiding w/o difficulty, bowel movement and afebrile Review of Systems Review of Systems: All systems reviewed & are unremarkable except as noted in HPI and below (HPI) Exam Const: General: cooperative, comfortable, no acute distress, alert and awake Orientation/consciousness: patient oriented x3 GI: Inspection: distended and incision (Dry and healing well) GI Palp: Yes Soft to palpation, No Tenderness to palpation present (GI), No Guarding due to palpation present (GI), No Hernia present, No Palpable mass present and No Rebound tenderness present Auscultation: Hypoactive bowel sounds present Neuro: General: patient oriented x3 and no focal motor deficits Extrem: General: no calf tenderness and no edema Psych: Affect: normal affect Insight: Good insight present (Psych) Judgement: Good judgement present (Psych) Objective Data Vital Signs Vital Signs: Vital Signs - 24 hr 01/04/23 14:00 01/04/23 15:53 01/04/23 16:00 Temperature 36.4 C L Pulse Rate 80 74 75 Respiratory Rate 18 Blood Pressure 153/68 H Pulse Oximetry 96 Oxygen Delivery 01/04/23 20:03 01/04/23 20:00 01/04/23 23:15 Temperature 36.4 C L 36.4 C Pulse Rate 73 73 82 Respiratory Rate 20 20 20 Blood Pressure 152/74 H 170/85 H Pulse Oximetry 97 97 97 Oxygen Delivery Room Air 01/04/23 20:00 01/05/23 05:12 01/05/23 00:00 Temperature 36.4 C L Pulse Rate 82 77 77 Respiratory Rate 20 Blood Pressure 150/72 H Pulse Oximetry 96 Oxygen Delivery 01/05/23 04:00 01/05/23 08:24 01/05/23 08:00 Temperature 36.2 C L Pulse Rate 76 80 89 Respiratory Rate 18 Blood Pressure 162/86 H Pulse Oximetry 98 Oxygen Delivery Intake/Output Intake/Output: Intake & Output 01/02/23 01/03/23 01/04/23 01/05/23 23:59 23:59 23:59 23:59 Intake Total 2550 3700 3765 2000 Output Total 3280 4885 3900 1890 [facility]730 -1185 -135 110 Meds/Results Medications: Active Medications Generic Name Dose Route Start Last Admin Trade Name Freq PRN Reason Stop Dose Admin Acetaminophen 500 mg 12/30/22 18:29 Acetaminophen 500 Mg Tablet PO Q6H PRN Mild Pain (1-3) or Fever Hydrocodone Virginie
[2023-01-05] MEDS: AZITHROMYCIN 250 MG TABLET 500 MG PO (16:06)
--- NOTE | 2023-01-05 18:07 | PC.NURSE ---
This patient, Val Iraheta, was transferred to [[id number] ] on 01/05/23 at 1807. Personal belongings sent with patient. Report given to [JOSÉ Avelar @ 1800 ]. Appropriate documentation sent with patient.
--- NOTE | 2023-01-05 18:16 | PC.NURSE ---
This patient, Val Iraheta, was received from [ IMU] on 01/05/23 at 1817. Patient/family oriented to unit policies and routines
--- NOTE | 2023-01-05 20:01 | PM.IMPN ---
Progress Note: A&P Assessment and Plan (1) Ileus: Code(s): K56.7 - Ileus, unspecified Status: Acute (2) Community acquired pneumonia: Code(s): J18.9 - Pneumonia, unspecified organism Status: Acute (3) Urinary tract infection: Code(s): N39.0 - Urinary tract infection, site not specified Status: Acute (4) Sigmoid colon injury: Qualifiers: Encounter type: subsequent encounter Qualified Code(s): S36.503D - Unspecified injury of sigmoid colon, subsequent encounter Code(s): S36.503A - Unspecified injury of sigmoid colon, initial encounter Status: Acute Plan 67F w/ PMH diverticulitis s/p Giacomo s/p hysterectomy, ventral hernia, peritoneal adhesions, HTN, GERD underwent lysis of adhesions, ventral hernia repair with mesh, b/l oophorectomy and intra op sigmoid colon traction injury with repair on 12/30/22 1) post op 12/30 open lap, post op ileus - Surgery managing. her pain is well controlled. - 01/05 ... NG tube and CANDIE drain removed today. - Patient advanced to full liquid diet - DC IV fluids - continue with postop antibiotics 2) hx of HTN - controlled. continue current mgmt 3) acute hypoxic respiratory failure - related to surgery and atelectasis and/or pna. - resolved. cont IS 4) leukocytosis - Resolved. - continue with oral antibiotics 5) CKD - unclear baseline, the patient has had this for years and was supposed to see a sales service manager. 01/03 sCR from 1.3 to 0.9. CTM FEN: IVF, diet per surgery, sips for now GI prophylaxis: protonix DVT prophylaxis: lovenox Lines: PIV, NG tube, CANDIE drain Code Status: full code Dispo: stable ? Patient seen and examined at bedside during my morning rounds ? Collaborated with patient's nurse at the bedside in detail and addressed all concerns ? Labs, electrolytes, radiology, investigations and test results reviewed ? Consult/Nursing/Ancilliary notes on the chart reviewed and appreciated ? Spoke with patient/family at the bedside and answered all the questions that they had Repeat labs in a.m. Electrolyte replacement as per protocol. Patient will be monitored very closely on the floor. advance diet as tolerated. DC planning in the next 24-48 hours if he remains stable, tolerates her diet and cleared by surgery for discharge. Time Spent With Patient Time with patient: 25 - 35 minutes Subjective Date/time seen: 01/05/23 20:01 Interval history: Patient seen and evaluated bedside. Started on full liquid diet which she is tolerating. excited to get home soon for Thanksgiving with family. Review of Systems Review of Systems: she denies any chest pain, palpitations, fever rigor chills, nausea vomiting, dizziness loss of consciousness All systems reviewed & are unremarkable except as noted in HPI and below Exam Narrative: PHYSICAL EXAMINATION: Vital signs: Please see the chart General physical exam: Head/eyes: Atraumatic, EOMI, PERRLA ENT: Moist mucous membranes, nasal passages clear Neck: Supple, full range of motion, trachea midline CVS: S1 + S2, regular rate and rhythm, no murmurs Respiratory: Bilaterally fair air entry in both lung welch, mild B/L crackles, symmetric chest expansion, no distress Abdomen: Soft, + postop incision healing well, bowel sounds +ve, no organomegaly Extremities: No clubbing, no cyanosis, no edema, no calf tenderness Musculoskeletal: Moves all, adequate range of motion, no muscle spasms Skin: Warm, dry, no jaundice, no cyanosis Neurological: Awake, alert, oriented x 3, cranial nerves II-XII intact, no focal neurological deficits Psychiatric: Normal mood, non suicidal Objective Data Vital Signs Vital Signs: Vital Signs - 24 hr 01/04/23 20:03 01/04/23 23:15 01/05/23 05:12 Temperature 36.4 C L 36.4 C 36.4 C L Pulse Rate 73 82 77 Respiratory Rate 20 20 20 Blood Pressure 152/74 H 170/85 H 150/72 H Pulse Oximetry 97 97 96 01/05/23 00:00 01/05/23 04:00 12/17
[2023-01-05] MEDS: HYDROcodone/acetaminophen (*CRX) 10-325 MG TABLET 1 TAB PO (20:44)
[2023-01-05] MEDS: ESCITALOPRAM OXALATE 10 MG TABLET PO (20:44)
[2023-01-05] MEDS: SENNA/DOCUSATE SODIUM TABLET 2 TAB PO (20:44)
[2023-01-06 05:55] VITALS: BP 157/80; PULSE 93; RESP 20; TEMP 36.4; O2SAT 98
[2023-01-06 06:42] LABS: Hematocrit 34.3 % (37.0-47.0); Mean Corpuscular HGB Conc 32.1 g/dl (32-36); Mean Corpuscular Hemoglobin 29.3 pg (26-34); Mean Corpuscular Volume 91.2 fl (80-100); Mean Platelet Volume 10.2 fl (7.4-10.4); Platelet Count Result 270 k/mm3 (150-375); Red Blood Count 3.76 M/mm3 (4.2-5.4); White Blood Count 9.9 K/mm3 (4.5-10.0)
[2023-01-06 07:00] LABS: Anion Gap 10 mmol/L (8-16); Blood Urea Nitrogen 8 mg/dL (7-17); Calcium 9.3 mg/dL (8.4-10.2); Carbon Dioxide 26 mmol/L (22-30); Chloride 103 mmol/L (98-107); Estimated CRCL calculation 55 ml/min; Estimated Glomerular Filt Rate > 60; Glucose 115 mg/dL (65-110); Potassium 3.2 mmol/L (3.4-5.0); Sodium 139 mmol/L (137-145)
[2023-01-06 08:51] VITALS: PULSE 94; O2SAT 98
[2023-01-06] MEDS: amLODIPine BESYLATE 2.5 MG TABLET PO (09:03)
[2023-01-06] MEDS: PANTOPRAZOLE 40 MG TABLET PO (09:03)
[2023-01-06] MEDS: ISOSORBIDE MONONITRATE 60 MG TAB.ER.24H PO (09:03)
[2023-01-06] MEDS: ASCORBIC ACID 500 MG TABLET 1000 MG PO (09:03)
[2023-01-06] MEDS: polyethylene glycoL 3350 17 GM POWD.PACK PO (09:03)
[2023-01-06] MEDS: HYDROcodone/acetaminophen (*CRX) 5-325 MG TABLET 1 TAB PO (09:07)
[2023-01-06] MEDS: ENOXAPARIN 40 MG/0.4 ML SYRINGE SUB-Q (09:07)
--- NOTE | 2023-01-06 10:56 | PM.DS ---
DS: Admitting Diagnosis Discharge Date 01/06/2023 Admitting Diagnosis Incisional hernia without obstruction or gangrene Lower abdominal and pelvic pain Moderate mitral regurgitation Hypertension History of open sigmoidectomy and colostomy with colostomy closure DS: Discharge Diagnosis Discharge Diagnosis (1) Incisional hernia without obstruction or gangrene: Code(s): K43.2 - Incisional hernia without obstruction or gangrene Status: Chronic (2) Pelvic pain: Code(s): R10.2 - Pelvic and perineal pain Status: Chronic (3) Moderate mitral regurgitation: Code(s): I34.0 - Nonrheumatic mitral (valve) insufficiency Status: Chronic (4) Ovarian cyst: Code(s): N83.209 - Unspecified ovarian cyst, unspecified side Status: Acute (5) Community acquired pneumonia: Code(s): J18.9 - Pneumonia, unspecified organism Status: Acute (6) Ileus, postoperative: Code(s): K91.89 - Other postprocedural complications and disorders of digestive system; K56.7 - Ileus, unspecified Status: Acute (7) Hypertension: Qualifiers: Hypertension type: primary hypertension Qualified Code(s): I10 - Essential (primary) hypertension Code(s): I10 - Essential (primary) hypertension Status: Chronic (8) History of open sigmoidectomy: Code(s): Z98.890 - Other specified postprocedural states; Z90.49 - Acquired absence of other specified parts of digestive tract Status: Chronic (9) History of colostomy: Status: Chronic (10) Sigmoid colon injury: Qualifiers: Encounter type: subsequent encounter Qualified Code(s): S36.503D - Unspecified injury of sigmoid colon, subsequent encounter Code(s): S36.503A - Unspecified injury of sigmoid colon, initial encounter Status: Acute (11) Urinary tract infection: Code(s): N39.0 - Urinary tract infection, site not specified Status: Acute DS: Summary Hospital Course Reason for hospitalization: Patient has history of chronic pelvic pain after having had a previous hysterectomy as well as Giacomo procedure with colostomy for severe diverticulitis.? She later had colostomy closure.? She is known from a previous laparoscopy in May that she had numerous and difficult adhesions.? She also was seen in our office in May and found to have a suprapubic hernia and possibly some other hernias with subsequent workup. CT scan of the abdomen and pelvis showed at least 5 incisional hernias.?Decision was made to proceed with repair of multiple hernias with mesh and myofascial flap advancement. During her previous laparoscopy in May she had a right oophorectomy and her case was discussed with Dr. Altamirano to coordinate for possible oophorectomy since she was having an open surgery. She presented for her scheduled elective surgery. Hospital Course: Patient came in on 12/30/2022 and underwent lengthy adhesiolysis, repair multiple ventral hernias total 17.5 cm with mesh, bilateral transversus abdominis myofascial flap advancement, 5 cm on the left, 4 cm on the right by Dr. Jason. There was a small full-thickness injury to the sigmoid colon during traction, which was repaired as well. (See operative note for full details) Dr. Altamirano also performed lysis of adhesions and bilateral oophorectomy. She was admitted following surgery. Hospitalist was consulted for medical management. Patient developed a postoperative ileus, which was treated with NG tube decompression, bowel rest, IV fluids, and analgesics. Given her extensive adhesiolysis, an ileus was not too surprising. She was monitored with serial abdominal imaging and serial exams. Her post-operative ileus began to resolved and bowel function returned on postop day 5. She was trialed on clear liquids after tolerating an NG clamping routine, with eventual removal of her NG on postop day 6. Labs were monitored daily and electrolytes were also replaced as needed. Her diet h
--- NOTE | 2023-01-06 13:11 | PM.IMPN ---
Progress Note: A&P Assessment and Plan (1) Ileus: Code(s): K56.7 - Ileus, unspecified Status: Acute (2) Community acquired pneumonia: Qualifiers: Lung location: unspecified part of lung Code(s): J18.9 - Pneumonia, unspecified organism Status: Acute (3) Urinary tract infection: Code(s): N39.0 - Urinary tract infection, site not specified Status: Acute (4) Sigmoid colon injury: Qualifiers: Encounter type: subsequent encounter Qualified Code(s): S36.503D - Unspecified injury of sigmoid colon, subsequent encounter Code(s): S36.503A - Unspecified injury of sigmoid colon, initial encounter Status: Acute Plan 67F w/ PMH diverticulitis s/p Giacomo s/p hysterectomy, ventral hernia, peritoneal adhesions, HTN, GERD underwent lysis of adhesions, ventral hernia repair with mesh, b/l oophorectomy and intra op sigmoid colon traction injury with repair on 12/30/22 1) post op 12/30 open lap, post op ileus - Surgery managing. her pain is well controlled. - 01/05 ... NG tube and CANDIE drain removed today. - Patient advanced to full liquid diet - DC IV fluids - continue with postop antibiotics 2) hx of HTN - controlled. continue current mgmt 3) acute hypoxic respiratory failure - related to surgery and atelectasis and/or pna. - resolved. cont IS 4) leukocytosis - Resolved. 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 01/03 sCR from 1.3 to 0.9. CTM FEN: IVF, diet per surgery, sips for now GI prophylaxis: protonix DVT prophylaxis: lovenox Lines: PIV, NG tube, CANDIE drain Code Status: full code Dispo: stable ? Patient seen and examined at bedside during my morning rounds ? Collaborated with patient's nurse at the bedside in detail and addressed all concerns ? Labs, electrolytes, radiology, investigations and test results reviewed ? Consult/Nursing/Ancilliary notes on the chart reviewed and appreciated ? Spoke with patient/family at the bedside and answered all the questions that they had Repeat labs in a.m. Electrolyte replacement as per protocol. Patient will be monitored very closely on the floor. advance diet as tolerated. DC planning in the next 24-48 hours if he remains stable, tolerates her diet and cleared by surgery for discharge. Time Spent With Patient Time with patient: 15 - 25 minutes Subjective Date/time seen: 01/06/23 0791 Review of Systems Review of Systems: All systems reviewed & are unremarkable except as noted in HPI and below Constitutional: Constitutional: Reports as per HPI Gastrointestinal: Gastrointestinal: Reports no additional gastrointestinal complaints Comments: Patient reports she has had 2 bowel movements since surgery and is passing gas without difficulty. Patient denies any complaints of nausea or vomiting. States she is tolerating food and fluids well. Exam Narrative: Upon admitting the patient is lying in Black's position with a pleasant affect stating she is just waiting to go home. Const: General: comfortable and no acute distress HENMT: Face/Nose/Sinus: Normal nares present Mouth: Yes moist mucous membranes Eyes: General: appearance normal, both eyes and all related structures Sclera: sclerae normal Pupils: Equal, round and reactive pupils present Neck: Neck: supple Resp: Effort & Inspection: normal respiratory effort Auscultation: clear to auscultation bilaterally Other: Patient appears in no respiratory distress. Able to speak in complete sentences without difficulty. No use of accessory muscles appreciated. Lung sounds are clear and equal bilaterally. Cardio: Rate: regular rate Rhythm: regular rhythm Other: S1-S2 heard without any rub, gallop, murmur GI: GI Palp: Yes Soft to palpation and Yes Tenderness to palpation present (GI) (Around surgical incision) Auscultation: no
--- NOTE | 2023-01-06 14:23 | PC.NURSE ---
at 1115 per orders, this nurse removed bill from abd incision and replaced them with ster-strips.
== END 2023-01-06 12:00 | disposition home or self-care (01) | DRG 329 ==
LOC: ANHICU 18:32 → ANHIMU 01-03 15:50 → ANH3MEDSUR 01-06 11:42 → ANHIMU 01-08 10:33
PROVIDERS: General Practice; Student in an Organized Health Care Education/Training Program; Admitting Provider Surgery; PCP Internal Medicine; Visit Provider Nurse Practitioner Family
PROC: 0WQF0ZZ Repair Abdominal Wall, Open Approach (ICD-10-PCS; principal; 2022-12-30 08:30)
PROC: 0UT20ZZ Resection of Bilateral Ovaries, Open Approach (ICD-10-PCS; CPT 49320; 2022-12-30 08:30)
DX: K43.2 Incisional hernia without obstruction or gangrene (principal); J18.9 Pneumonia, unspecified organism; J95.89 Other postprocedural complications and disorders of respiratory system, not elsewhere classified; K91.72 Accidental puncture and laceration of a digestive system organ or structure during other procedure; K91.89 Other postprocedural complications and disorders of digestive system; K56.7 Ileus, unspecified; N39.0 Urinary tract infection, site not specified; R09.02 Hypoxemia; K66.0 Peritoneal adhesions (postprocedural) (postinfection); I10 Essential (primary) hypertension; I34.0 Nonrheumatic mitral (valve) insufficiency; B95.1 Streptococcus, group B, as the cause of diseases classified elsewhere
CPT/HCPCS: 36415; 71046; 74018; 80048; 81001; 82948; 83735; 84100; 84145; 85025; 85027; 85610; 85730; 86850; 86900; 86901; 87077; 87086; 87088; 88305; 93005; A9270; C1781; C9113; J0330; J0456; J0690; J0696; J1100; J1170; J1580; J1650; J1741; J1885; J2250; J2270; J2405; J2550; J2704; J3010; J3480; J7030; J7060; J7120

== ENCOUNTER 2023-10-14 14:47 | Outpatient (CLI) | payer MEDICARE, SELFPAY ==
--- NOTE | ~2023-10-14 | MM_ITS ---
EXAMINATION: MM screening quin BI w leanne HISTORY: Screening TECHNIQUE: Craniocaudal and mediolateral oblique 3-D tomosynthesis images were obtained and synthetic 2-D images were generated. CAD analysis was submitted and interpreted. COMPARISON: Comparison to multiple prior studies sequentially, with oldest reviewed study dated 03/29. BREAST PARENCHYMAL COMPOSITION: Dense: The breasts are heterogeneously dense, which may obscure small masses FINDINGS: There is no evidence of suspicious mass, calcification, or architectural distortion to sugg est malignancy in either breast. There has been no suspicious interval change. IMPRESSION: 1. No mammographic evidence of malignancy. 2. Recommend routine screening mammography in one year. BI-RADS Category 1: Negative Reviewed, dictated and finalized at location B.
== END 2023-10-14 14:48 ==
LOC: MICIMG 14:48
PROVIDERS: PCP Student in an Organized Health Care Education/Training Program; Visit Provider Student in an Organized Health Care Education/Training Program
DX: Z12.31 Encounter for screening mammogram for malignant neoplasm of breast (principal)
CPT/HCPCS: 77063; 77067

== ENCOUNTER 2024-05-18 09:21 | Outpatient (CLI) | payer MEDICARE, SELFPAY ==
--- NOTE | ~2024-05-18 | CT_ITS ---
CT Scan of the Chest without Contrast: Clinical Indication: Lung cancer screening, nicotine dependence Technique: Contiguous sections were acquired throughout the chest without intravenous contrast. Dose reduction technique was used on this scan by utilizing automated exposure control and iterative recon struction technique. The dose-length product (DLP) was 93.77 mGy-cm. Findings: There is no evidence of any significant mediastinal, hilar or axillary lymphadenopathy. The mediastin al soft tissues appear normal. There is no evidence of pleural or pericardial effusion. No pulmonary nodule evident. There is mild scarring at the right middle lobe and lingula. Additional focal linear scarring in the right upper lobe anteriorly. Images through the upper abdomen reveal no abnormalities. Impression: Lung RADS 2: Benign appearance. 12 month follow-up screening CT advised. Reviewed, dictated and finalized at [facility]. Impression: Lung RADS 2: Benign appearance. 12 month follow-up screening CT advised.
== END 2024-05-18 09:22 | disposition home or self-care (01) ==
LOC: MICIMG 09:21
PROVIDERS: PCP Student in an Organized Health Care Education/Training Program; Visit Provider Internal Medicine
DX: Z12.2 Encounter for screening for malignant neoplasm of respiratory organs (principal); Z87.891 Personal history of nicotine dependence
CPT/HCPCS: 71271

== ENCOUNTER 2024-10-12 10:16 | Outpatient (CLI) | payer MEDICARE, SELFPAY ==
--- NOTE | ~2024-10-12 | CT_ITS ---
EXAMINATION: CT abdomen pelvis wo con DATE: 10/12/2024 10:30 INDICATION: Status 3a chronic kidney disease TECHNIQUE: Computed tomography (CT) of the chest was performed without intravenous contrast. The dose-length product was 464.70 mGy-cm. COMPARISON: CT abdomen and pelvis 11/10/2022 FINDINGS: Liver is slightly heterogeneous. The spleen, adrenal glands are unremarkable. Gallbladder is contracted but otherwise unremarkable. Multiple calcifications throughout the pancreas suggestive of chronic pancreatitis. No atrophy of the pancreas. There are a few less than 3 mm nonobstructing left renal stones. There is a 1.4 x 0.5 cm calcification in the right hemipelvis. The kidneys are nodular. Differential includes lobulation versus renal masses. A renal ultrasound or MRI is recommended. Abdominal aorta is partially calcified but is not aneurysmal. No enlarged lymph nodes identified in the abdomen. No free fluid in the abdomen. Bladder is unremarkable. No enlarged lymph nodes in the pelvis. Anastomotic suture line in bowel in the lower midpelvis similar to the prior study. Moderate amount of stool and air in nondilated large bowel. No dilated bowel loops. Multilevel degenerative change in the visualized spine. Indeterminant 3.4 x 2.4 cm oval low-density fluid density structure in the lower mid pelvis which has increased in size, previously measured 2.6 x 1.9 cm on 11/10/2022. IMPRESSION: 1. No hydronephrosis. 2. There are a few less than 3 mm nonobstructing left renal stones. 3. Interval development of a 1.4 cm calcification in the right hemipelvis. 4. Kidneys are nodular. Differential includes lobulation versus renal masses. A renal mass ultrasound or MRI is recommended. 5. No CT evidence for an acute process in the abdomen or pelvis at this time. 6. Indeterminant 3.4 x 2.4 cm oval low-density fluid density structure in the lower midpelvis which has increased in size, previously measured 2.6 x 1.9 cm on 11/10/2022. A pelvic ultrasound is recommended. A follow-up CT in 3 months is recommended. Reviewed, dictated and finalized at location Q. IMPRESSION: 1. No hydronephrosis. 2. There are a few less than 3 mm nonobstructing left renal stones. 3. Interval development of a 1.4 cm calcification in the right hemipelvis. 4. Kidneys are nodular. Differential includes lobulation versus renal mas ses. A renal mass ultrasound or MRI is recommended. 5. No CT evidence for an acute process in the abdomen or pelvis at this time. 6. Indeterminant 3.4 x 2.4 cm oval low-density fluid density structure in the l ower midpelvis which has increased in size, previously measured 2.6 x 1.9 cm on 11/10/2022. A pelvic ultrasound is recommended. A follow-up CT in 3 months is r ecommended.
== END 2024-10-12 10:17 | disposition home or self-care (01) ==
PROVIDERS: PCP Internal Medicine; Visit Provider Internal Medicine Nephrology
DX: N18.31 Chronic kidney disease, stage 3a (principal); N20.0 Calculus of kidney
CPT/HCPCS: 74176

== ENCOUNTER 2024-10-17 12:44 | Outpatient (CLI) | payer MEDICARE, SELFPAY ==
--- NOTE | ~2024-10-17 | MM_ITS ---
EXAMINATION: MM screening [facility] BI w [facility] HISTORY: Screening TECHNIQUE: Craniocaudal and mediolateral oblique 3-D tomosynthesis images were obtained and synthetic 2-D images were generated. CAD analysis was submitted and interpreted. COMPARISON: Mammograms from 10/14/2023 and 01/12/2018 BREAST PARENCHYMAL COMPOSITION: The breasts are heterogeneously dense, which may obscure small masses. FINDINGS: There is no evidence of suspicious mass, calcification, or architectural distortion to suggest malignancy. There has been no suspicious interval change. IMPRESSION: 1. No mammographic evidence of malignancy. Recommend routine screening mammography in one year. BI-RADS Category 2: Benign finding(s) Reviewed, dictated and finalized at location Q. IMPRESSION: 1. No mammographic evidence of malignancy. Recommend routine screening mammogra phy in one year. BI-RADS Category 2: Benign finding(s)
== END 2024-10-17 12:45 | disposition home or self-care (01) ==
LOC: MICIMG 12:44
PROVIDERS: PCP Internal Medicine; Visit Provider Student in an Organized Health Care Education/Training Program
DX: Z12.31 Encounter for screening mammogram for malignant neoplasm of breast (principal)
CPT/HCPCS: 77063; 77067

== ENCOUNTER 2024-12-21 08:26 | Outpatient (CLI) | payer MEDICARE, SELFPAY ==
--- NOTE | 2024-12-21 08:35 | ECG_ITS ---
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
[2024-12-21 09:48] LABS: INR 1.0; Prothrombin Time 13.0 Seconds (11.1-14.7)
[2024-12-21 09:49] LABS: Partial Thromboplastin Time 28.0 Seconds (22.3-36.8)
[2024-12-21 09:59] LABS: Anion Gap 10 mmol/L (4-12); Blood Urea Nitrogen 23 mg/dL (7-17); Calcium 9.7 mg/dL (8.4-10.2); Carbon Dioxide 23 mmol/L (22-30); Chloride 104 mmol/L (98-107); Estimated Glomerular Filt Rate 38; Glucose 212 mg/dL (65-110); Potassium 4.2 mmol/L (3.4-5.0); Sodium 137 mmol/L (137-145)
--- OUTSIDE RECORDS SUMMARY | 2024-12-21 17:16 | XMS_ITS | Clinical Summary ---
Author Organization [facility] Address [address] [place] [id number] Care Team Providers Care [employer] Name Role Phone Dimitri Gonzalez MD Primary Care Provider [phone] Allergies Active Allergy Reactions Criticality Noted Date Comments Penicillin Unknown 05/20/2022 Medications furosemide (LASIX) 20 mg tablet Take 1 tablet (20 mg total) by mouth daily 04/13/2022 Active escitalopram (LEXAPRO) 10 mg tablet Take 1 tablet (10 mg total) by mouth daily 04/23/[address] (PROTONIX) 40 mg EC tablet Take 1 tablet (40 mg total) by mouth daily 03/31/2022 Active Zenpep 5,000-17,000- 24,000 unit capsule,delayed release(DR/EC) Take 1 capsule by mouth 3 (three) times a day with meals 03/25/2022 Active losartan (COZAAR) 100 mg tablet Take 1 tablet (100 mg total) by mouth every morning 05/18/2022 Active multivitamin capsule Take 1 capsule by mouth daily Active cranberry 500 mg capsule Take 1 capsule by mouth daily Active cholecalciferol, vitamin D3, 1,000 unit tablet,chewable Take 1 tablet/chew tab by mouth daily Active ascorbic acid (VITAMIN C) 1,000 mg tablet Take 1 tablet (1,000 mg total) by mouth daily Active isosorbide mononitrate ER (IMDUR) 30 mg 24 hr tablet Take 1 tablet (30 mg total) by mouth daily 30 tablet 11 05/21/2022 Active Active Problems Problem Noted Date Diagnosed Date CAD (coronary artery disease) 05/20/2022 Overview (05/20/2022): Added automatically from request for surgery [id number] SOB (shortness of breath) 05/20/2022 Overview (05/20/2022): Added automatically from request for surgery [id number] Encounters Date Type Department Care Team Description 11/18/2024 7:53 AM CDT - 11/18/2024 11:59 PM CDT Hospital Encounter [facility] Imaging and Radiology [id number] [place] [address] Other specified disorders of kidney and ureter Discharge Disposition: Discharge to home or self care from Last 3 Months Surgical History Surgery Date Site/Laterality Comments PARTIAL HYSTERECTOMY 02/15/1982 - 02/14/1983 COLECTOMY 02/15/2019 - 02/15/2020 COLOSTOMY 02/15/2019 - 02/15/2020 REVISION / TAKEDOWN COLOSTOMY 02/15/2019 - 02/15/2020 Medical History Medical History Date Comments Hypertension STEWART (dyspnea on exertion) Social History Tobacco Use Types Packs/Day Years Used Date Smoking Tobacco: Former Cigarettes Q uit: 2020 Smokeless Tobacco: Never Tobacco Cessation:Counseling Given: Not Answered AUDIT-C Answer Date Recorded Frequency of Alcohol Consumption Not on file 05/21/2022 Q2: How many drinks containi ng alcohol do you have on a typical day when you are drinking? Patient does not drink Frequency of Binge Drinking Not on file 07/2022 Personal Safety Answer Date Recorded Have you ever been in or are you currently in a harmful physical or emotional relationship or is someone making you feel afraid or unsafe? 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 Gender Identity Not on file Sexual Orientation Not on file Last Filed Vital Signs Vital Sign Reading Time Taken Comments Blood Pressure 131/65 05/21/2022 10:35 AM CDT Pulse 59 05/21/2022 10:45 AM CDT Temperature 36.7 C (98 F) 05/21/2022 6:13 AM CDT Respiratory Rate 16 05/21/2022 6:13 AM CDT Oxygen Saturation 94% 05/21/2022 10:45 AM CDT Inhaled Oxygen Concentration - - Weight 66.9 kg (147 lb 7.8 oz) 11/18/2024 8:06 A M CDT Height 154.9 cm (5' 0.98) 11/18/2024 8:06 AM CD T Body Mass Index 27.88 11/18/2024 8:06 AM CDT Plan of Treatment Health Maintenance Due Date Last Done Comments Colon Cancer Screening-Colonoscopy 1955 Depression Screening 1955 Hepatitis C Screening 1955 Hepatitis B Screening 11/06/1975 Pneumococcal vaccine 65+ (1 of 1 - PCV) 11/06/2007 Zoster Vaccine (1 of 2) 11/06/2007 Well Visit 65+ 2022 Breast Cancer Screening-Mammogram 01/07/2023 022 Fall Risk Assessment 05/22/2023 05/21/2022 Covid-19 Vaccine (5 - 2024-2 6 season) 2024 03/06/2021, 05/31/2020, 05/10/2020, Additional history exists Influenza Vaccine (#1) 2024 Osteoporosis Screening-Bone Density Scan 06/14/2025 06/15/2023 DTaP/Tdap/Td Vaccine (2 - Td or Tdap) 07/25/2031 07/24/2021 Procedures Procedure Name Priority Date/Time Associated Diagnosis Comments MRI ABDOMEN W WO CONTRAST Schedule Routine, Read Routine (OP Routine) 11/18/2024 8:35 AM CDT Other specified disorders of kidney and ureter from Last 3 Months Results * MRI Abdomen W WO Contrast (11/18/2024 8:35 AM CDT) Anatomical Region Laterality Modality Body N/A Magnetic Resonan ce 11/20/2024 11:0 2 AM CDT Impressions 11/20/2024 12:59 PM CDT 1. 1.2 cm nonobstructing stone in the right renal pelvis. No hydronephrosis. 2. Multiple sub-5 mm cystic lesions scattered throughout the lesion likely represent side-branch intraductal papillary mucinous neoplasms. 3. Mild diffuse hepatic steatosis. Dictated by: Gene Ojeda MD The radiology attending physician has personally reviewed this study, and had reviewed and/or edited this written report and agrees with it. Electronically signed by: Mckinley Zamarripa M.D. Narrative 11/20/2024 12:59 PM CDT EXAMINATION: MAGNETIC RESONANCE IMAGING OF THE ABDOMEN WITH AND WITHOUT CONTRAST HISTORY: Chronic kidney disease with hematuria TECHNIQUE: Magnetic resonance imaging of the abdomen was performed prior to and following the administration of intravenous contrast. Protocol: Kidney Contrast: Dotarem (gadoterate) 13 mL COMPARISON: None available FINDINGS: Liver and Bile Ducts: Normal liver morphology. Mild diffuse hepatic steatosis. Focal areas of arterial hyperenhancement in the right hemiliver that equilibrates on delayed phases likely represent shunting. No biliary ductal dilation. Gallbladder: Biliary sludge is noted layering dependently in the gallbladder. Pancreas: There are multiple sub-5 mm T2 cystic lesions scattered throughout the pancreas, which may represent dilated side branches versus side branch intraductal papillary mucinous neoplasms. Main pancreatic duct is nondilated. No nodular enhancement. Spleen: Normal Adrenals: Normal Kidneys: 1.2 cm nonobstructing stone in the right renal pelvis. Multiple areas of cortical scarring and simple cysts are noted throughout both kidneys. No hydronephrosis. Other Findings: Lung bases are clear. No abdominal lymphadenopathy. No marrow replacing osseous lesion. Procedure Note Mckinley Zamarripa MD - 11/20/2024 EXAMINATION: MAGNETIC RESONANCE IMAGING OF THE ABDOMEN WITH AND WITHOUT CONTRAST HISTORY: Chronic kidney disease with hematuria TECHNIQUE: Magnetic resonance imaging of the abdomen was performed prior to and following the administration of intravenous contrast. Protocol: Kidney Contrast: Dotarem (gadoterate) 13 mL COMPARISON: None available FINDINGS: Liver and Bile Ducts: Normal liver morphology. Mild diffuse hepatic steatosis. Focal areas of arterial hyperenhancement in the right hemiliver that equilibrates on delayed phases likely represent shunting. No biliary ductal dilation. Gallbladder: Biliary sludge is noted layering dependently in the gallbladder. Pancreas: There are multiple sub-5 mm T2 cystic lesions scattered throughout the pancreas, which may represent dilated side branches versus side branch intraductal papillary mucinous neoplasms. Main pancreatic duct is nondilated. No nodular enhancement. Spleen: Normal Adrenals: Normal Kidneys: 1.2 cm nonobstructing stone in the right renal pelvis. Multiple areas of cortical scarring and simple cysts are noted throughout both kidneys. No hydronephrosis. Other Findings: Lung bases are clear. No abdominal lymphadenopathy. No marrow replacing osseous lesion. IMPRESSION: 1. 1.2 cm nonobstructing stone in the right renal pelvis. No hydronephrosis. 2. Multiple sub-5 mm cystic lesions scattered throughout the lesion likely represent side-branch intraductal papillary mucinous neoplasms. 3. Mild diffuse hepatic steatosis. Dictated by: Gene Ojeda MD The radiology attending physician has personally reviewed this study, and had reviewed and/or edited this written report and agrees with it. Electronically signed by: Mckinley Zamarripa M.D. [facility] MRI PROCEDURES Final Result from Last 3 Months Insurance [facility] MEDICARE ADV[facility] Advance Directives For more information, please contact: [phone] * Full Code (Latest Code Status on File) Date Activated Date Inactivated Comments 05/21/2022 9:11 AM 05/21/2022 3:08 PM Care Teams [employer] Relationship Specialty Start Date End Date Dimitri Gonzalez MD PCP - General Internal Medicine 05/20/22
--- OUTSIDE RECORDS SUMMARY | 2024-12-21 17:16 | XMS_ITS | Data Portability ---
Author Organization [place] [facility], Main Office Address [address] [place] [address] Care Team Providers Care Rn Bariatric Name Role Phone BRAD BERRY Primary Care Provider [phone] BRAD BERRY Referring Provider Assessment Encounter Date Assessment Date Assessment LastModified by Organization Details LastModified Time 06/21/2024 06/21/2024 68-year-old female presents for evaluation of her left knee. She reports pain in the knees have been ongoing for a couple of months, getting progressively worse. It started when she was getting in or out of her pickup truck and may have twisted her knee. She has pain over the medial joint line. She has been taking Tylenol and has not had any other treatments. She currently reports 7/10 pain. Denies other medical problems Review of systems per patient questionnaire Physical exam: She has tenderness palpation over the medial joint line. Mildly antalgic gait. Range of motion 0-130. Pain in terminal flexion. Positive Rekha's. Stable ligaments. X-rays reviewed, demonstrating no acute bony abnormality, preserved joint space. Given her history and exam findings I suspect he has a tear of the medial meniscus. We will begin with a course of conservative management anti-inflammator ies and PT. Order for meloxicam and PT were given. We will see her back in 6 weeks. We discussed that many people have improvement with conservative management but if she has persistent symptoms next step would be to consider injection and/or an MRI for the knee. She does not like needles and wants to avoid injection. [email or web address] Not available 06/21/2024 11:59:08 07/31/2024 07/31/2024 HPI: 68 year old female presents today for a follow up on left knee pain. She was last seen on June 21, treatment plan included PT and a steroid pack. She did not take the steroid pack. She has gone to 4 sessions of PT. Reports improvement in pain and strength. Pain was constant and is now intermittent, currently rating her pain 6/10. She takes Tylenol as needed for pain. Denies mechanical sx. No concerns today. Physical Exam: General: Normal appearance. No acute distress. Inspection: No evidence of swelling, erythema, bruising or deformity. Palpation: Tenderness along the medial joint line ROM: 0-120 Gait: Antalgic Special Test: Pain with terminal flexion. Positive Lucita. Motor: 5/5 strength. Sensation: Sensation intact. Assessment & Plan: Her symptoms have improved and she is doing well with no concerns today. Continue PT. If she would like to do more PT, she can call the office and we can place another order. She has kidney disease. 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 Follow Up: As needed. All questions were answered. Patient verbalized understanding of treatment plan [email or web address] Not available 07/31/2024 11:30:00 Plan of Treatment Reminders Order Date Submit Date Provider Last Modified By Organization Details Last Modified Time Details Appointments Any 15 2024 10:45A Kirsten Berry MD Not available Not available Not available Lab CMP, serum or plasma 2024 025 WA[facility]AR [facility], [address], [place], [address], 09/13/2024 04:09:28 lipid panel, serum 2024 025 [email or web address], [address], [place], [address], 09/13/2024 04:09:29 unliste d lab - amylase (refl) 2024 025 [email or web address] [facility], [address], [place], [address], 09/29/2024 11:24:59 lipase, serum or plasma 2024 025 [place] [facility], [address], [place], [address], 09/13/2024 04:09:31 CBC w/ auto diff 2024 025 [employer] [facility], [address], [place], [address], 09/13/2024 04:09:27 urinaly sis, dipstic k 2024 025 [email or web address] [address], [address] [place], [address], 08/11/2024 11:47:16 urinaly sis complet e, reflex culture 2024 025 [employer] [facility], [address], [place], [address], 08/15/2024 10:02:25 Referral physica l therapi st referra l - Please contact patient to schedul e 2024 025 [facility] [place], [address], [place], [address], 07/14/2024 11:50:36 Procedures None recorde d. Surgeries None recorde d. Imaging XR, knee 2024 025 [facility] [place], [address], [place], [address], 06/21/2024 14:48:48 LDCT, chest, for lung cancer screeni ng 2024 025 [email or web address] [facility], [address], [place], [address], 05/03/2024 12:41:05 Medication Orders Bactrim DS 800 mg-160 mg tablet 2024 025 [id number], [address], [place], [place], [id number], 08/11/2024 11:35:50 prednis one 10 mg tablets in a dose pack [email or web address] [facility] [address] [id number], [address], [place], [place], [id number], 06/21/2024 13:58:20 pantopr azole 40 mg tablet, delayed release 2024 025 [facility] #[id number], [address], [place], [place], [id number], 05/03/2024 12:20:45 Patient TargetsNo targets recorded. Patient Instructions Encounter Date Encounter Id Patient Instructions Last Modified By Organization Details Last Modified Time 05/03/2024 [id number] Personalized a [facility] Plan and Screening Recommendations Advance Directives - Do you have one? No You have indicated that you are capable of preparing your advance care directive Advance Directives - Do we have your advance directive on file in your health record? No, please bring in a copy at your earliest convenience Primary Prevention/Interven tion (prevents or decreases the chance of common diseases from occurring) Smoking Risk: Non Smoker Alcohol Misuse Screening: Negative Weight: Overweight try to lose 10% of your body weight Physical activity: Need more exercise/physical activity minimum of 10-20 minutes of activity that causes mild breathlessness/day Nutrition: Average Refer to attached handout DASH Diet: After Your Visit Fall Risk (screened today): Low Vaccines Pneumococcal: Recommended today, but you have declined Influenza: Recommended today, but you have declined Chronic Disease Risks Stroke: Intermediate Risk Active diagnosis, Continue current treatment plan Heart Attack: Intermediate Risk Active diagnosis, Continue current treatment plan Clogging of the Arteries: Intermediate Risk Active diagnosis, Continue current treatment plan Diabetes: Low Risk I have no recommendations Secondary Prevention/Interven tion (detects treatable diseases before they may cause symptoms, disability, or ) Breast Cancer Screening with mammogram: No screening necessary Cervical/Uterine/Ov rowdy Cancer Screening: No screening necessary Osteoporosis Screening: Your next DEXA [id number] Date Screening Last Performed: _05/2023 Colon Cancer Screening: Colonoscopy Date Screening Last Performed: 12/2021_ Eye Disease Screening: Recommended today Dementia Risk: Low I have no recommendations Depression Screening: Negative I have no recommendations. [email or web address] Not available 05/03/2024 11:57:31 08/11/2024 [id number] Discussed the importance of antibiotic therapy compliance. Patient needs to take medication as prescribed, including completing entire course even if symptoms improve/resolve. Discussed possible side effects of medication. Instructed patient to take medication with food to prevent stomach upset and increase daily water intake. Patient will follow up in 3-4 days if symptoms are not improving or worsen while taking antibiotics. [email or web address] Not available 08/11/2024 11:41:19 Discussed importance of follow up with Dr. Gaffney related to hematuria. Encouraged pushing fluids, avoid sugary drinks, wiping front to back, avoiding fragrant soaps and bubble baths, and voiding before/after intercourse. Oral ABX as directed. Discussed instructions for use. Patient advised to follow up at urgent care or seek treatment at the Emergency Department if fever/chills or flank pain. Patient verbalized understanding and agreement to treatment plan. Not available 08/11/2024 11:43:06 09/05/2024 [id number] Personalized [facility] Plan and Screening Recommendations Advance Directives - Do you have one? No You have indicated that you are capable of preparing your advance care directive Advance Directives - Do we have your advance directive on file in your health record? No, please bring in a copy at your earliest convenience Primary Prevention/Interven tion (prevents or decreases the chance of common diseases from occurring) Smoking Risk: Non Smoker Alcohol Misuse Screening: Negative Weight: Overweight try to lose 10% of your body weight Physical activity: Need more exercise/physical activity minimum of 10-20 minutes of activity that causes mild breathlessness/day Nutrition: Average Refer to attached handout DASH Diet: After Your Visit Fall Risk (screened today): Low Vaccines Pneumococcal: Recommended today, but you have declined Influenza: Recommended today, but you have declined Chronic Disease Risks Stroke: Intermediate Risk Active diagnosis, Continue current treatment plan Heart Attack: Intermediate Risk Active diagnosis, Continue current treatment plan Clogging of the Arteries: Intermediate Risk Active diagnosis, Continue current treatment plan Diabetes: Low Risk I have no recommendations Secondary Prevention/Interven tion (detects treatable diseases before they may cause symptoms, disability, or ) Breast Cancer Screening with mammogram: No screening necessary Cervical/Uterine/Ov rowdy Cancer Screening: No screening necessary Osteoporosis Screening: Your next DEXA [id number] Date Screening Last Performed: _05/2023 Colon Cancer Screening: Colonoscopy Date Screening Last Performed: 12/2021_ Eye Disease Screening: Recommended today Dementia Risk: Low I have no recommendations Depression Screening: Negative I have no recommendations. [email or web address] Not available 09/05/2024 11:53:29 Reason for Referral Physical Therapist Referral for Pain of knee region Please contact patient to schedule Referring Physician: Duncan Carter, Orthopedic Surgery, Encounter Date: 06/21/2024 Results Created Date Observation Date Name Description Value Unit Range Abnormal Flag Note LastModifiedBy Organization Detail LastModifiedTime 08/12/1908/11/2024 urina lysis , dipst ick Leukocytes (reference range: negative susannah/ l) Trace Not Available [facility] [address] [place], [address], 08/11/2024 10:33:38 08/12/19 25 08/11/2024 urina lysis , dipst ick Nitrite (reference rage: negative mg/dl) negati ve Not Available [facility] [address] [place], [address], 08/11/2024 10:33:38 08/12/19 25 08/11/2024 urina lysis , dipst ick Urobilinogen (reference range: 0.2-1 mg/dl) 0.2 Not Available [facility] [address] [place], [address], 08/11/2024 10:33:38 08/12/19 25 08/11/2024 urina lysis , dipst ick Protein (reference range: negative mg/dl) Negati ve Not Available [facility] [address] [place], [address], 08/11/2024 10:33:38 08/12/19 25 08/11/2024 urina lysis , dipst ick pH (reference range: 5-7) 7.0 Not Available [facility] [address] [place], [address], 08/11/2024 10:33:38 08/12/19 25 08/11/2024 urina lysis , dipst ick Blood (reference range: negative Franco/ l) Small Not Available [facility] [address] [place], [address], 08/11/2024 10:33:38 08/12/19 25 08/11/2024 urina lysis , dipst ick Specific [place] (reference range: 1.005-1.030) 1.015 Not Available [facility] [address] [place], [address], 08/11/2024 10:33:38 08/12/19 25 08/11/2024 urina lysis , dipst ick Ketone (reference range: negative mg/dl) Negati ve Not Available [facility] [address] [place], [address], 08/11/2024 10:33:38 08/12/19 25 08/11/2024 urina lysis , dipst ick Bilirubin (reference range: negative mg/dl) Negati ve Not Available [facility] [address] [place], [address], 08/11/2024 10:33:38 08/12/19 25 08/11/2024 urina lysis , dipst ick Glucose (reference range: negative mg/dl) 100 Not Available [facility] [address] [place], [address], 08/11/2024 10:33:38 08/12/19 25 08/11/2024 urina lysis , dipst ick Appearance Clear Not Available [facility] [address] [place], [address], 08/11/2024 10:33:38 08/12/19 25 08/11/2024 urina lysis , dipst ick Color Pale Yellow Not Available [facility] [address] [place], [address], 08/11/2024 10:33:38 09/13/19 25 09/12/2024 CBC/D IFF AMBIG UOUS DEFAU LT WBC 7.6 x10e3 /uL 3.4-10 .8 normal Not Available [facility] ([facility]) [address] [place], [address], 09/13/2024 04:09:27 09/13/19 25 09/12/2024 CBC/D IFF AMBIG UOUS DEFAU LT RBC 4.53 x10e6 /uL 3.77-5 .28 normal Not Available [facility] ([facility]) [address] [place], [address], 09/13/2024 04:09:27 09/13/19 25 09/12/2024 CBC/D IFF AMBIG UOUS DEFAU LT hemoglobin 13.1 g/dL 11.1-1 5.9 normal Not Available [facility] ([facility]) [address] [place], [address], 09/13/2024 04:09:27 09/13/19 25 09/12/2024 CBC/D IFF AMBIG UOUS DEFAU LT hematocrit 41.1 % 34.0-4 6.6 normal Not Available [facility] ([facility]) [address] [place], [address], 09/13/2024 04:09:27 09/13/19 25 09/12/2024 CBC/D IFF AMBIG UOUS DEFAU LT MCV 91 fL 79-97 normal Not Available [facility] ([facility]) [address] [facility], [place], [address], 09/13/2024 04:09:27 09/13/19 25 09/12/2024 CBC/D IFF AMBIG UOUS DEFAU LT MCH 28.9 pg 26.6-3 3.0 normal Not Available [facility] ([facility]) [address] [facility], [place], [address], 09/13/2024 04:09:27 09/13/19 25 09/12/2024 CBC/D IFF AMBIG UOUS DEFAU LT MCHC 31.9 g/dL 31.5-3 5.7 normal Not Available [facility] ([facility]) [address] [place], [address], 09/13/2024 04:09:27 09/13/19 25 09/12/2024 CBC/D IFF AMBIG UOUS DEFAU LT RDW 12.4 % 11.7-1 5.4 Not Available [facility] ([facility]) [address] [place], [address], 09/13/2024 04:09:27 09/13/19 25 09/12/2024 CBC/D IFF AMBIG UOUS DEFAU LT platelets 252 x10e3 /uL 150-45 0 normal Not Available [facility] ([facility]) [address] [place], [address], 09/13/2024 04:09:27 09/13/19 25 09/12/2024 CBC/D IFF AMBIG UOUS DEFAU LT neutrophils 68 % not estab. normal Not Available [facility] ([facility]) [address] [facility], [place], [address], 09/13/2024 04:09:27 09/13/19 25 09/12/2024 CBC/D IFF AMBIG UOUS DEFAU LT lymphs 22 % not estab. normal Not Available [facility] ([facility]) [address] [facility], [place], [address], 09/13/2024 04:09:27 09/13/19 25 09/12/2024 CBC/D IFF AMBIG UOUS DEFAU LT monocytes 5 % not estab. normal Not Available [facility] ([facility]) [address] [facility], [place], [address], 09/13/2024 04:09:27 09/13/19 25 09/12/2024 CBC/D IFF AMBIG UOUS DEFAU LT eos 3 % not estab. normal Not Available [facility] ([facility]) [address] [facility], [place], [address], 09/13/2024 04:09:27 09/13/19 25 09/12/2024 CBC/D IFF AMBIG UOUS DEFAU LT basos 1 % not estab. normal Not Available [facility] ([facility]) [address] [facility], [place], [address], 09/13/2024 04:09:27 09/13/19 25 09/12/2024 CBC/D IFF AMBIG UOUS DEFAU LT immature cells PARTY COORDINATOR Not Available [facility] ([facility]) [address] [facility], [place], [address], 09/13/2024 04:09:27 09/13/19 25 09/12/2024 CBC/D IFF AMBIG UOUS DEFAU LT neutrophils (absolute) 5.2 x10e3 /uL 1.4-7. 0 normal Not Available [facility] ([facility]) [address] [facility], [place], [address], 09/13/2024 04:09:27 09/13/19 25 09/12/2024 CBC/D IFF AMBIG UOUS DEFAU LT lymphs (absolute) 1.7 x10e3 /uL 0.7-3. 1 normal Not Available [facility] ([facility]) [address] [facility], [place], [address], 09/13/2024 04:09:27 09/13/19 25 09/12/2024 CBC/D IFF AMBIG UOUS DEFAU LT monocytes(ab solute) 0.4 x10e3 /uL 0.1-0. 9 normal Not Available [facility] ([facility]) [address] [facility], [place], [address], 09/13/2024 04:09:27 09/13/19 25 09/12/2024 CBC/D IFF AMBIG UOUS DEFAU LT eos (absolute) 0.2 x10e3 /uL 0.0-0. 4 normal Not Available [facility] ([facility]) [address] [facility], [place], [address], 09/13/2024 04:09:27 09/13/19 25 09/12/2024 CBC/D IFF AMBIG UOUS DEFAU LT baso (absolute) 0.1 x10e3 /uL 0.0-0. 2 normal Not Available [facility] ([facility]) [address] [facility], [place], [address], 09/13/2024 04:09:27 09/13/19 25 09/12/2024 CBC/D IFF AMBIG UOUS DEFAU LT immature granulocytes 1 % not estab. Not Available [facility] ([facility]) [address] [facility], [place], [address], 09/13/2024 04:09:27 09/13/19 25 09/12/2024 CBC/D IFF AMBIG UOUS DEFAU LT immature grans (abs) 0.1 x10e3 /uL 0.0-0. 1 Not Available [facility] ([facility]) [address] [facility], [place], [address], 09/13/2024 04:09:27 09/13/19 25 09/12/2024 CBC/D IFF MARIE ANDERSON LT NRBC PARTY COORDINATOR Not Available [facility] ([facility]) [address] [facility], [place], [address], 09/13/2024 04:09:27 09/13/19 25 09/12/2024 CBC/D IFF MARIE UOUS DEFAU LT hematology comments: PARTY COORDINATOR A hand- writt en panel /prof ile was recei gordy from your offic e. In accor dance with the [facility] Ambfreda uous Test Code Polic y dated August 2002, we have assig carlitos CBC with Diffe jim al/Pl atele t, Test Code #[address]. If this is not the testi ng you wishe d to recei ve on this speci men, pleas e conta ct the [facility] Clien t Inqui ry/ Techn ical Servi michael Depar tment to prudencio fy the test order . We appre ciate your busin ess. Not Available [facility] ([facility]) [address] [facility], [place], [address], 09/13/2024 04:09:27 09/13/19 25 09/13/2024 COMP. METAB OLIC PANEL (14) glucose 80 mg/dL 70-99 normal Not Available [facility] ([facility]) [address] [facility], [place], [address], 09/13/2024 04:09:28 09/13/19 25 09/13/2024 COMP. METAB OLIC PANEL (14) BUN 21 mg/dL 8-27 normal Not Available [facility] ([facility]) [address] [facility], [place], [address], 09/13/2024 04:09:28 09/13/19 25 09/13/2024 COMP. METAB OLIC PANEL (14) creatinine 1.38 mg/dL 0.57-1 .00 above high normal Not Available [facility] ([facility]) [address] [place], [address], 09/13/2024 04:09:28 09/13/19 25 09/13/2024 COMP. METAB OLIC PANEL (14) eGFR 42 mL/mi n/1.7 3 >59 below low normal Not Available [facility] ([facility]) [address] [facility], [place], [address], 09/13/2024 04:09:28 09/13/19 25 09/13/2024 COMP. METAB OLIC PANEL (14) BUN/creatini ne ratio 15 12-28 normal Not Available [facility] ([facility]) [address] [facility], [place], [address], 09/13/2024 04:09:28 09/13/19 25 09/13/2024 COMP. METAB OLIC PANEL (14) sodium 140 mmol/ L 134-14 4 normal Not Available [facility] ([facility]) [address] [place], [address], 09/13/2024 04:09:28 09/13/19 25 09/13/2024 COMP. METAB OLIC PANEL (14) potassium 4.5 mmol/ L 3.5-5. 2 normal Not Available [facility] ([facility]) [address] [place], [address], 09/13/2024 04:09:28 09/13/19 25 09/13/2024 COMP. METAB OLIC PANEL (14) chloride 100 mmol/ L 96-106 normal Not Available [facility] ([facility]) [address] [place], [address], 09/13/2024 04:09:28 09/13/19 25 09/13/2024 COMP. METAB OLIC PANEL (14) carbon dioxide, total 23 mmol/ L 20-29 normal Not Available [facility] ([facility]) [address] [place], [address], 09/13/2024 04:09:28 09/13/19 25 09/13/2024 COMP. METAB OLIC PANEL (14) calcium 10.6 mg/dL 8.7-10 .3 above high normal Not Available [facility] ([facility]) [address] [place], [address], 09/13/2024 04:09:28 09/13/19 25 09/13/2024 COMP. METAB OLIC PANEL (14) protein, total 7.4 g/dL 6.0-8. 5 normal Not Available [facility] ([facility]) [address] [place], [address], 09/13/2024 04:09:28 09/13/19 25 09/13/2024 COMP. METAB OLIC PANEL (14) albumin 4.6 g/dL 3.9-4. 9 normal Not Available [facility] ([facility]) [address] [place], [address], 09/13/2024 04:09:28 09/13/19 25 09/13/2024 COMP. METAB OLIC PANEL (14) globulin, total 2.8 g/dL 1.5-4. 5 Not Available [facility] ([facility]) [address] [place], [address], 09/13/2024 04:09:28 09/13/19 25 09/13/2024 COMP. METAB OLIC PANEL (14) bilirubin, total 0.3 mg/dL 0.0-1. 2 normal Not Available [facility] ([facility]) [address] [place], [address], 09/13/2024 04:09:28 09/13/19 25 09/13/2024 COMP. METAB OLIC PANEL (14) alkaline phosphatase 83 IU/L 44-121 normal Not Available [facility] ([facility]) [address] [place], [address], 09/13/2024 04:09:28 09/13/19 25 09/13/2024 COMP. METAB OLIC PANEL (14) AST (SGOT) 18 IU/L 0-40 normal Not Available [facility] ([facility]) [address] [place], [address], 09/13/2024 04:09:28 09/13/19 25 09/13/2024 COMP. METAB OLIC PANEL (14) ALT (SGPT) 15 IU/L 0-32 normal Not Available [facility] ([facility]) [address] [place], [address], 09/13/2024 04:09:28 09/13/19 25 09/13/2024 LP cholesterol, total 198 mg/dL 100-19 9 normal Not Available [facility] ([facility]) [address] [place], [address], 09/13/2024 04:09:29 09/13/19 25 09/13/2024 LP triglyceride s 89 mg/dL 0-149 normal Not Available [facility] ([facility]) [address] [place], [address], 09/13/2024 04:09:29 09/13/19 25 09/13/2024 LP HDL cholesterol 79 mg/dL >39 normal Not Available [facility]) [address] [place], [address], 09/13/2024 04:09:29 09/13/19 25 09/13/2024 LP VLDL cholesterol jaylen 16 mg/dL 5-40 Not Available [facility] ([facility]) [address] [place], [address], 09/13/2024 04:09:29 09/13/19 25 09/13/2024 LP LDL chol calc ([facility]) 103 mg/dL 0-99 above high normal Not Available [facility] ([facility]) [address] [place], [address], 09/13/2024 04:09:29 09/13/19 25 09/13/2024 LP LDL calc comment: PARTY COORDINATOR Not Available [facility] ([facility]) [address] [place], [address], 09/13/2024 04:09:29 09/13/19 25 09/13/2024 AMYLA SE amylase 43 U/L 31-110 normal Not Available [facility] ([facility]) [address] [place], [address], 09/13/2024 04:09:30 09/13/19 25 09/13/2024 LIPAS E lipase 63 U/L 14-72 normal Not Available [facility] ([facility]) [address] [facility], [place], [address], 09/13/2024 04:09:31 09/13/19 25 09/12/2024 MARIE MONTANEZRE V CMP14 DEFAU LT marie carterv CMP14 default COMMEN T A hand- writt en panel /prof edwina was recei gordy from your offic e. In accor dance with the [facility] Marie uous Test Code Polic y dated August 2002, we have compl eted your order by using the close st curre ntly or forme rly recog nized AMA panel . We have assig carlitos Compr ehens susan Metab olic Panel (14), Test Code #[address]. If this is not the testi ng you wishe d to recei ve on this speci men, pleas e conta ct the [facility]rata t Inqui ry/Te chnic al Servi michael Depar tment to prudencio fy the test order . We appre ciate your busin ess. Not Available [facility] ([facility]) [address] [place], [address], 09/13/2024 04:09:32 05/19/19 25 05/18/2024 LDCT, chest , for lung cance r scree den No observ ation record ed. [email or web address] [address], [place], [address], 05/24/2024 16:12:29 06/22/19 25 XR, knee No observ ation record ed. [email or web address] [facility] [place] [address], [place], [address], 06/21/2024 11:02:41 10/19/19 25 10/17/2024 CT, abdom en + pelvi s, w/o contr ast No observ ation record ed. [email or web address] Not Available 10/18 12:33:38 10/19/19 25 10/18/2024 MAMMO , scree den, digit al, bilat eral No observ ation record ed. [email or web address] Not Available 2024 12:18:31 Result Notes None recorded. Problems Name Problem SNOMED Code Status Onset Date Resolution Date Notes Provider Name and Address Organization Details Recorded Time Acute bronchiti s 69505014 Completed Not Available [facility] 3 04:52:11 Chronic pancreati tis 984069771 Active Not Available [facility] 4 21:48:57 Ureteric stone 71409990 Active Not Available [facility] 4 21:48:57 Depressiv e disorder 18372450 Active Not Available [facility] 4 21:48:58 Polyp of colon 84425825 Active Not Available [facility] 4 21:48:58 Smoker 00546893 Active 2016 Not Available [facility] 4 21:48:58 Hiatal hernia 23701369 Active 2017 Not Available [facility] 4 21:48:58 Insomnia 118004527 Active 2019 Not Available [facility] 4 21:48:57 Mitral valve stenosis 24664593 Active 2019 Not Available [facility] 4 21:48:58 Gastroeso phageal reflux disease 249527951 Active 2020 Not Available [facility] 4 21:48:57 Essential hypertens ion 28122020 Active 2020 Not Available [facility] 4 21:48:58 Diverticu litis of colon with perforati on 68199424 Active 2020 Not Available [facility] 4 21:48:58 Heart murmur 32380277 Active 2020 Not Available [facility] 4 21:48:58 Kidney stone 00518646 Active 2020 Not Available [facility] 4 21:48:58 Abdominal pain 07816480 Completed 202111/27/2021 Not Available [facility] 3 04:52:12 Adult health examinati on Active 2021 Not Available [facility] 4 21:48:57 Blood in urine 92109317 Completed 202111/27/2021 Laura bruno[place] - [facility] 5 11:57:15 Blood in urine 19370079 Completed 202103/23/2022 Laura Perez null, [place] [facility] 5 11:57:15 Cyst of ovary 92768969 Active 2021 Not Available [facility] 4 21:48:58 Kidney disease 03892104 Active 2021 Not Available [facility] 4 21:48:58 Mitral valve disorder 73954938 Completed 202201/31/2024 JESUS Woo[place] - [facility] 4 10:41:32 Acute urinary tract infection 024243172 Completed 202201/31/2024 GISELA Green [address] [place] [address], [address], [address] , [place] [facility] 5 10:33:33 Mitral valve regurgita tion 34451987 Active 2022 Kelly jose RMA null, [place] - [facility] 4 10:41:35 Blood in urine 49524816 Completed 202201/31/2024 Laura Perez null[place] [facility] 5 11:57:15 Coronary artery spasm 07706948 Active 2022 Kelly jose, RMA null[place] [facility] 4 10:41:39 Hypercalc emia 10539510 Active 2023 Kelly jose, RMA null[place] [facility] 4 10:41:59 Hernia of anterior abdominal wall 544663348 Active 2023 Kelly jose, RMA null[place] [facility] 4 10:41:52 Blood in urine 37305445 Active 2024 Laura Perez null[place] [facility] 5 11:57:14 Pain of left knee joint 84973877716 4107 Active 2024 Val Ireland LPN null, [place] [facility] 5 14:37:51 Pain of knee region 0558660296 Active 2024 Radha No CNA null, [place] - [facility] 5 11:02:32 Osteoarth ritis of left knee joint 77662031539 9109 Active 2024 Margi Krishnamurthy PA-C [address], [place], [address] , [facility] 5 11:30:14 Acute urinary tract infection 529850522 Active 2024 GISELA Green [address], [place], [address] , [facility] 5 10:33:32 Lex hematuria 809007584 Active 2024 GISELA Green [address] [facility] [facility] [address], [place], [address] , [facility] [employer] [facility] 5 11:42:05 Microscop ic hematuria 484714240 Active 2024 Brad Berry MD [address] [facility] [facility] [address], [place], [address] , [facility] [employer] [facility] 5 12:26:15 Problem Notes None recorded. Procedures Surgical History Date Name Laterality Status Provider Name and Address Organization Details Recorded Time 12/07/19 Medicare Wellness CPT Code, subsequent completed Zoe Caldwell RN [facility] [employer] [facility] 12/07/2023 09:53:10 12/07/19 Advanced Care Planning completed Zoe Caldwell RN [facility] [employer] [facility] 12/07/2023 12:12:18 01/01/20 other completed Not Available [facility] 04:41:38 09/23/19 other completed Not Available [facility] 04:41:38 08/21/19 operation on oral cavity completed Not Available [facility] 04/15/2022 04:41:38 Breast Surgery completed Not Available On license of [facility] 04/15/2022 04:41:38 other completed Not Available [facility] 02/2022 04:41:38 other completed Not Available [facility] 02/2022 04:41:38 Partial hysterectomy completed Not Available [facility] 04/15/2022 04:41:38 other completed Not Available [facility] 02/2022 04:41:38 Imaging Results None recorded. Procedure Notes None recorded. Medical Equipment None Reported. Allergies Allergen ID Allergen Name Allergen Category Reaction Reaction Severity Criticality Documentation Date Start Date Code Code System Note Provider Name and Address Organization Details Recorded Time 8253 Product containin g penicilli n (product) medicatio n anaphylax is Not available Not available 04/15/2022 97620 8001 SNOMED Not Available [facility] 05:04:23 Medications Name Sig Start Date Stop Date Status Note LastModified by Organization Details LastModified Time clindamyc in HCl 300 mg capsule TK ONE C PO BID active Not Available Not Available No t Available azithromy john 250 mg tablet Take 2 TABLET EVERY DAY by oral route for 1 day. then 1 tab a day for 4 days active Not Available Not Available No t Available hydrocodo ne 5 mg-acetam inophen 325 mg tablet 04/13 completed Not Available Not Available Not Available lisinopri l 20 mg tablet TAKE 1 TABLET BY MOUTH EVERY DAY. active Not Available Not Available No t Available famotidin e 40 mg tablet Take 1 tablet every day by oral route in the evening. 04/07 completed Not Available Not Available Not Available clindamyc in HCl 150 mg capsule TK 1 C PO TID TAT active Not Available Not Available No t Available amlodipin e 2.5 mg tablet TAKE 1 TABLET BY MOUTH DAILY 06/21 completed Not Available Not Available Not Available metronida zole 500 mg tablet TAKE 1 TABLET BY MOUTH EVERY 12 HOURS 11/25 completed Not Available Not Available Not Available acetamino phen 300 mg-codein e 30 mg tablet TK 1 T PO Q 4 TO 6 H PRN active Not Available Not Available No t Available amlodipin e 5 mg tablet Take 1 tablet every day by oral route in the evening. active Not Available Not Available No t Available ciproflox acin 500 mg tablet TAKE 1 TABLET BY MOUTH TWICE DAILY 06/21 completed Not Available Not Available Not Available sulfameth oxazole 800 mg-trimet hoprim 160 mg tablet TAKE 1 TABLET BY MOUTH EVERY 12 HOURS FOR 7 DAYS active Not Available Not Available No t Available peg-elect rolyte solution 420 gram oral solution MIX AND DRINK 1/2 OF SOLUTION AT 5 PM ON Sep AND 1/2 OF SOLUTION AT 5 AM ON Sep06/21 completed Not Available Not Available Not Available prednison e 10 mg tablets in a dose pack Take 1 tab by mouth, 3 times a day for 3 daysTake 1 tab by mouth 2 times a day for 2 daysTake 1 tab by mouth once a day for 1 day 2024 active Not Available Not Available Not Avai lable Macrobid 100 mg capsule Take 1 capsule every 12 hours by oral route. 08/10 completed Not Available Not Available Not Available oxycodone -acetamin ophen 5 mg-325 mg tablet TK 1 T PO Q 4 TO 6 H PRN active Not Available Not Available No t Available isosorbid e mononitra te ER 60 mg tablet,ex tended release 24 hr TAKE 1 TABLET BY MOUTH DAILY active Not Available Not Available No t Available potassium chloride ER 20 mEq tablet,ex tended release(p art/cryst ) TAKE ONE TABLET BY MOUTH TWICE DAILY active Not Available Not Available No t Available Vitamin C 1,000 mg tablet Take 1 tablet every day by oral route. active Not Available Not Available No t Available tamsulosi n 0.4 mg capsule Take 1 capsule every day by oral route for 10 days. active Not Available Not Available No t Available pantopraz ole 40 mg tablet,de layed release TAKE 1 TABLET BY MOUTH EVERY DAY 2024 active Not Available Not Available Not Avai lable lisinopri l 10 mg tablet TK 1 T PO QD 07/23 completed Not Available Not Available Not Available indapamid e 1.25 mg tablet 06/21 completed Not Available Not Available Not Available bisacodyl 5 mg tablet,de layed release TAKE 6 TABLETS BY MOUTH AT 8AM ON 2 04/07 completed Not Available Not Available Not Available furosemid e 20 mg tablet TAKE 1 TABLET BY MOUTH EVERY DAY 06/21 completed Not Available Not Available Not Available clobetaso l 0.05 % topical ointment APPLY 1 APPLICAT ION TOPICALL Y EVERY DAY AT BEDTIME active Not Available Not Available No t Available levofloxa john 500 mg tablet 04/13 completed Not Available Not Available Not Available estradiol 0.01% (0.1 mg/gram) vaginal cream INSERT 0.5 GRAM VAGINALL Y EVERY DAY 03/26 completed has not started Not Available Not Available Not Available methylpre dnisolone 4 mg tablets in a dose pack TK PO UTD 08/17 completed Not Available Not Available Not Available neomycin 500 mg tablet active Not Available Not Available Not Available Cipro 250 mg tablet Take 1 tablet every 12 hours by oral route for 5 days. active Not Available Not Available No t Available losartan 100 mg tablet TAKE 1 TABLET BY MOUTH EVERY DAY 05/03 completed Not Available Not Available Not Available dicyclomi ne 10 mg capsule TAKE 1 CAPSULE BY MOUTH THREE TIMES DAILY NEEDED 07/24 completed Has not started Not Available Not Available Not Available Vitamin B-12 1,000 mcg tablet Take 1 tablet every day by oral route. active Not Available Not Available No t Available olmesarta n 40 mg tablet TAKE 1/2 TABLET BY MOUTH EVERY NIGHT active Not Available Not Available No t Available escitalop frederick 10 mg tablet TAKE 1 TABLET BY MOUTH EVERY DAY 2024 active BRITTANEY 09/05/24 01/04/25 ok to rf Not Available Not Available Not Available bupropion HCl XL 300 mg 24 hr tablet, extended release active Not Available Not Available Not Available Vitamin D3 5,000 IU daily active Not Available Not Available No t Available multivita min active Not Available Not Available Not Available peg 3350-elec trolytes 236 gram-22.7 4 gram-6.74 gram-5.86 gram solution MIX AND DRINK 1/2 AT 5PM ON 2 AND 1/2 AT 5AM ON 12/20/19 22 03/26 completed Not Available Not Available Not Available Zenpep 5,000 unit-17,0 00 unit-27,0 00 unit capsule,d elayed release TK 1 C PO TID WITH MEALS 09/[address] Salamanca Not Available Not Available Not Available Suprep Bowel Prep Kit 17.5 gram-3.13 gram-1.6 gram oral solution 07/14 completed Not Available Not Available Not Available melatonin 10 mg capsule Take 1 capsule every day by oral route at bedtime. active Not Available Not Available No t Available Jardiance 25 mg tablet TAKE 1 TABLET BY MOUTH 1 TIME EACH DAY IN THE MORNING active Not Available Not Available No t Available Zenpep 5,000 unit-17,0 00 unit-24,0 00 unit capsule,d elayed release TAKE 1 CAPSULE BY MOUTH WITH A MEAL UP TO FOUR TIMES DAILY active Not Available Not Available No t Available ID NOW COVID-19 Test Kit USE 1 KIT TODAY DIRECTED 03/26 completed Not Available Not Available Not Available Vitals Date Recorded Body height Body mass index (BMI) Body weight Body temperature Oxygen saturation Oxygen saturation in Arterial blood by Pulse oximetry Heart rate Provider Name and Address Organization Details Last Updated DateTime 5 154.94 cm 29.5 kg/m2 85007.4 1 g 98 [degF] 96 % 96 % 79 /min Laura shin [employer] [facility] 5 11:54:23 Date Recorded Body height Body mass index (BMI) Body weight Provider Name and Address Organization Details Last Updated DateTime 06/21/2024 154.94 cm 28.3 kg/m2 47161.86 g Radha No [facility] [employer] [facility] 06/21/2024 10:55:31 Date Recorded Body height Body mass index (BMI) Body weight Pain severity - 0-10 verbal numeric rating [Score] - Reported Provider Name and Address Organization Details Last Updated DateTime 07/31/2024 154.94 cm 28.3 kg/m2 29212.86 g 6 Cristel Salmeron, [facility] [employer] [facility] 07/31/2024 10:29:02 Date Recorded Body height Body mass index (BMI) Body weight Body temperature Heart rate Oxygen saturation Oxygen saturation in Arterial blood by Pulse oximetry Systolic And Diastolic Provider Name and Address Organization Details Last Updated DateTime 5 154.94 cm 28 kg/m2 85744.6 7 g 97.8 [degF] 96 /min 98 % 98 % 118/79 mm[Hg] Laura Fontana [employer] [facility] 5 11:13:29 Date Recorded Body height Body mass index (BMI) Body weight Body temperature Heart rate Oxygen saturation Oxygen saturation in Arterial blood by Pulse oximetry Systolic And Diastolic Provider Name and Address Organization Details Last Updated DateTime 5 154.94 cm 29.3 kg/m2 47660.8 2 g 97.2 [degF] 79 /min 97 % 97 % 120/70 mm[Hg] Kelly hartman [facility] [employer] [facility] 5 11:56:01 Social History Question Answer Notes LastModified by Organizat ion Details LastModified Time Tobacco Smoking Status Former Smoker Quit in 09/2019 Not Available [facility] 04/15/2022 04:35:45 Do You Have An Advance Directive? No [email or web address] Information not available 12/07/2023 Are You Blind Or Do You Have Difficulty Seeing? No [email or web address] Information not available 12/07/2023 Is Blood Transfusion Acceptable In An Emergency? Yes [email or web address] Information not available 12/07/2023 What Is Your Level Of Caffeine Consumption? Occasional [id number] Information not available 04/15/2022 How Much Tobacco Do You Chew? None MIGRATION.[id number] Information not available 04/15/2022 Are You Deaf Or Do You Have Serious Difficulty Hearing? No [email or web address] Information not available 12/07/2023 What Type Of Diet Are You Following? REGULAR [id number].[id number] Information not available 04/15/2022 Which Illicit Or Recreational Drugs Have You Used? None MIGRATION.[id number] Information not available 04/15/2022 What Is The Highest Grade Or Level Of School You Have Completed Or The Highest Degree You Have Received? [id number] [email or web address] Information not available 12/07/2023 How Many Days Of Moderate To Strenuous Exercise, Like A Brisk Walk, Did You Do In The Last 7 Days? 3 [email or web address] Information not available 12/07/2023 On Those Days That You Engage In Moderate To Strenuous Exercise, How Many Minutes, On Average, Do You Exercise? 15 [email or web address] Information not available 12/07/2023 Have There Been Any Changes To Your Family Or Social Situation? No [email or web address] Information not available 12/07/2023 What Is The Fluoride Status Of Your Home? Fluoridated [email or web address] Information not available 12/07/2023 When Did You Quit Smoking? 1-5yearssincelastc igarette MIGRATION.[id number] Information not available 04/15/2022 Are There Any Guns Present In Your Home? Yes [email or web address] Information not available 12/07/2023 Do You Use Insect Repellent Routinely? No [email or web address] Information not available 12/07/2023 Where Do You Live? [facility] [email or web address] Information not available 12/07/2023 General Stress Level? Moderate [email or web address] Information not available 12/07/2023 Live Alone Of With Others? With Others [email or web address] Information not available 12/07/2023 Are You Following A Low Salt Diet? Yes [email or web address] Information not available 12/07/2023 Do You Have A Medical Power Of Gis Scientist? Yes States Has Papers At Home [email or web address] Information not available 12/07/2023 What Was The Date Of Your Most Recent Tobacco Screening? 12/07/2023 [email or web address] Information not available 12/07/2023 How Many Children Do You Have? 1 [email or web address] Information not available 12/07/2023 What Is Your Current Pack Years? [email or web address] MIGRATION.73845 32304 Information not available 04/15/2022 Do You Have Any Pets? No [email or web address] Information not available 12/07/2023 What Is Your Relationship Status? MIGRATION.34378 47389 Information not available 04/15/2022 Do You Use Your Seat Belt Or Car Seat Routinely? Yes [email or web address] Information not available 12/07/2023 Are You Sexually Active? Yes [email or web address] Information not available 12/07/2023 Do You Have Smoke And Carbon Monoxide Detectors In Your Home? Yes [email or web address] Information not available 12/07/2023 At What Age Did You Start Smoking Tobacco? 18 MIGRATION.02646 86899 Information not available 04/15/2022 Are You Passively Exposed To Smoke? No [email or web address] Information not available 12/07/2023 Are There Any Smokers In Your House? No [email or web address] Information not available 12/07/2023 How Much Tobacco Do You Smoke? 1 PPD MIGRATION.30215 24786 Information not available 04/15/2022 What Types Of Sporting Activities Do You Participate In? None [email or web address] Information not available 12/07/2023 Do You Use Sunscreen Routinely? Yes MIGRATION.07729 38225 Information not available 04/15/2022 Has Tobacco Cessation Counseling Been Provided? No [email or web address] Information not available 12/07/2023 How Many Years Have You Smoked Tobacco? 45 MIGRATION.55725 53167 Information not available 04/15/2022 Have You Recently Traveled Abroad? No MIGRATION.01667 63954 Information not available 04/15/2022 Do You Have Difficulty Walking Or Climbing Stairs? No [email or web address] Information not available 12/07/2023 Do You Have Any Dietary Restrictions? Yes High Fiber/low Fat [email or web address] Information not available 12/07/2023 Sex: Female Functional Status Question Answer Note LastModified by Organizat ion Details LastModified Time Do you use any illicit or recreational drugs? No [email or web address] Information not available 12/07/2023 Do you or have you ever used any other forms of tobacco or nicotine? No [email or web address] Information not available 12/07/2023 What is your level of alcohol consumption? None MIGRATION.[id number] Information not available 04/15/2022 Are you currently employed? No [email or web address] Information not available 12/07/2023 Do you have transportation difficulties? No [email or web address] Information not available 12/07/2023 Are you able to walk independently without assistance or assistive devices? YESWOREST [email or web address] Information not available 12/07/2023 Do you have difficulty doing errands alone? No [email or web address] Information not available 12/07/2023 Are you able to care for yourself independently? Yes [email or web address] Information not available 12/07/2023 What is your occupation? Retired MIGRATION.5121589 026 Information not available 04/15/2022 Do you have difficulty dressing, bathing, grooming, or toileting? No [email or web address] Information not available 12/07/2023 What is your exercise level? Occasional [email or web address] Information not available 12/07/2023 Mental Status Question Answer Note LastModified by Organizat ion Details LastModified Time Do you feel stressed (tense, restless, nervous, or anxious, or unable to sleep at night)? [id number] [email or web address] Information not available 12/07/2023 Do you have difficulty concentrating, remembering or making decisions? No [email or web address] Information no t available 12/07/2023 Family History Relationship Description Onset Age of this Age Resolved Age Notes LastModified by Organization Details LastModified Time Mother Essential hypertension MIGRATION.137 [id number] Not available 04/15/2022 04:41:46 Mother Cerebrovascu lar accident MIGRATION.926 [id number] Not available 04/15/2022 04:41:46 Brother Heart disease MIGRATION.906 [id number] Not available 04/15/2022 04:41:46 Notes:No family history of u rolithiasis. Medical History Condition Response OTHER MODALITIES Y HYPERTENSION Y Gynecological HistoryNo gynecological history recorded. Obstetrics History GPAL:G 0 P 0 0 0 0 Immunizations Vaccine Type Date Status Note Provider Nam e and Address Organization Details Recorded Time SARS-COV-2 (COVID-19) vaccine, UNSPECIFIED 1 completed Not Available [facility] 03/01/2023 21:48:58 SARS-COV-2 (COVID-19) vaccine, UNSPECIFIED 1 completed Not Available [facility] 03/01/2023 21:48:58 Tdap 2 completed Not Available [facility] 03/01/2023 21:48:58 Past Encounters Encounter ID Performer Location Encounter Start Date Encounter Closed Date Diagnosis/Indication Diagnosis SNOMED-CT Code Diagnosis ICD10 Code Diagnosis IMO Codes Diagnosis Note [id number] Brad Berry MD [facility] Internal Med [address] [facility] [place] [address] 08/01/2020 00:00:00 08/01/2020 11:59:29 [id number] MD ADRY MckayS[facility] Internal Med [address] [place] [address] 09/10/2020 00:00:00 09/10/2020 17:11:31 [id number] Richmond Lyons MD [facility] Urology [address] [address] 09/19/2020 00:00:00 09/19/2020 12:43:02 [id number] Richmond Lyons MD [facility] Urology [address] [address] 09/26/2020 00:00:00 09/26/2020 11:34:42 [id number] Brad Berry MD Gely[facility] Internal Med [address] [place] [address] 11/25/2020 00:00:00 11/25/2020 10:47:30 [id number] Claude lr MD [facility] General Surgery [address] [address] 02/27/2021 00:00:00 02/27/2021 14:09:04 [id number] MD KADEN Mckay[facility] [address] [place] [address] 03/26/2021 00:00:00 03/26/2021 10:12:03 [id number] MD KADEN Mckay[facility] [address] [place] [address] 07/24/2021 00:00:00 07/24/2021 13:15:17 [id number] Brad Berry MD [facility] Internal Med [address] [facility] [place] [address] 11/27/2021 00:00:00 11/27/2021 10:26:19 [id number] Brad Berry MD [facility] Internal Med [address] [facility] [place] [address] 03/26/2022 00:00:00 03/26/2022 10:12:43 [id number] MD KADEN Mckay[facility] Internal Med [address] [place] [address] 08/10/2022 11:45:21 08/10/2022 12:33:28 Essential hypertension 36916263 I10 under control Depressive disorder 3548 9007 F32.9 under control with meds Chronic pancreatitis 235 007965 K86.1 stable Gastroesop hageal reflux disease 588979653 K21.9 better with meds Kidney disease 51486299 N08 seeing renal Kidney stone 75575465 N2 0.0 no recurrence , seen urology Insomnia 356777676 G47.0 0 melatonin helps Heart murmur 44391551 R0 1.1 no symptoms, needs echo Cyst of ovary 35445839 N 83.209 see gyne Diverticul itis of colon with perforation 90064027 K57.20 had perforatio n Ex-smoker 8886043 Z87.89 1 LDCT nl 08/06 Blood in urine 56716592 R31.9 no more symptoms Adult heal th examination 353121472 Z00.00 Mammogram- 01/07/2022 Pap at Gyne 01/2020 (Per pt)Dexa at gyne , no reportsCol onoscopy - 12/19/2021 COVID- 05/10/20, 05/31/20, 01/2021 Coronary artery spasm 23 238014 I20.1 no symptoms [id number] Brad Berry MD [facility] [address] [facility] [place] [address] 12/10/2022 11:56:59 12/10/2022 12:48:19 Essential hypertension 38304390 I10 under control Depressive disorder 3548 9007 F32.9 under control with meds Chronic pancreatitis 235 807471 K86.1 stable, seeing GI Gastroesop hageal reflux disease 178790456 K21.9 better with meds Kidney disease 05534621 N08 IMPROVING Kidney stone 42838214 N2 0.0 no recurrence , seen urology Insomnia 587412851 G47.0 0 melatonin helps Heart murmur 31414446 R0 1.1 no symptoms, needs echo Cyst of ovary 29025682 N 83.209 see gyne Diverticul itis of colon with perforation 96147948 K57.20 had perforatio n Ex-smoker 8813496 Z87.89 1 LDCT nl 08/2022 Blood in urine 33550047 R31.9 no more symptoms Adult heal th examination 488785366 Z00.00 Mammogram- 01/07/2022 Pap at Gyne 01/2020 (Per pt), gyne orders itDexa at gyne , no reports, will get from gyneColono scopy - 12/19/2021 Pneumovax needed, wants it next timeFLU- DeclinedCO VID- 05/10/20, 05/31/20, 01/2021 Coronary artery spasm 23 125189 I20.1 meds help Long-term drug therapy 682044347 Z79.899 Depression screening 171 755808 Z13.31 [id number] Brad Berry MD [facility] [address] [place] [address] 04/07/2023 10:51:54 04/07/2023 11:36:38 Essential hypertension 42152269 I10 under control Depressive disorder 3548 9007 F32.9 under control with meds Chronic pancreatitis 235 940115 K86.1 stable Gastroesop hageal reflux disease 615188188 K21.9 better with daily meds Kidney disease 38464439 N08 seeing renal and stable GFR Kidney stone 85568581 N2 0.0 no recurrence , seen urology Insomnia 180635199 G47.0 0 melatonin helps Heart murmur 20734745 R0 1.1 no symptoms, needs echo Cyst of ovary 67973170 N 83.209 see gyne Diverticul itis of colon with perforation 56935110 K57.20 had perforatio n Ex-smoker 8783943 Z87.89 1 LDCT nl Blood in urine 33983686 R31.9 no more symptoms Adult [facility] examination 420802990 Z00.00 Mammogram- 01/07/2022 , has an order Pap at [facility] 01/2020 (Per pt) Dexa - was done in the past at [facility], will order Colonoscop y - 12/19/2021 COVID- 05/10/20, 05/31/20, 01/2021 Coronary artery spasm 23 972684 I20.1 no symptoms Hypercalcemia 46817392 E 83.52 Hernia of anterior abdominal wall 877736668 K43.9 S/P REPAIR Postmenopausal state 764 81982 Z78.0 [id number] Brad Berry MD [facility] [address] [place] [address] 08/31/2023 10:19:19 08/31/2023 11:06:29 Essential hypertension 30481207 I10 under control Depressive disorder 3548 9007 F32.9 under control with meds Chronic pancreatitis 235 660717 K86.1 labs Gastroesop hageal reflux disease 348408047 K21.9 better with daily meds Kidney disease 91840437 N08 seeing renal Kidney stone 34601407 N2 0.0 no recurrence , seen urology Insomnia 679243017 G47.0 0 melatonin helps Heart murmur 69502207 R0 1.1 no symptoms, needs echo Cyst of ovary 32107864 N 83.209 see [facility] Diverticul itis of colon with perforation 65965126 K57.20 had perforatio n Ex-smoker 8758270 Z87.89 1 LDCT nl Blood in urine 72702187 R31.9 no more symptoms Adult [facility] examination 519313066 Z00.00 Mammogram- 01/07/2022 , getting it in 10/08Pap at [facility] 01/2020 (Per pt)Dexa -06/08Colon oscopy - 12/19/2021 - Scheduled 09/17/23COVI D- 05/10/20, 05/31/20, 01/2021 Coronary artery spasm 23 797723 I20.1 no symptoms Hypercalcemia 99807626 E 83.52 avoid calcium supplement Hernia of anterior abdominal wall 220839207 K43.9 S/P REPAIR [id number] Brad Berry MD [facility] [address] [place] [address] 12/07/2023 09:20:40 12/07/2023 10:06:09 Essential hypertension 56068626 I10 under control Depressive disorder 3548 9007 F32.9 under control with meds Chronic pancreatitis 235 121864 K86.1 no symptoms Gastroesop hageal reflux disease 897010146 K21.9 better with daily meds Kidney disease 19320327 N08 GFR stable Kidney stone 21719986 N2 0.0 no recurrence , seen urology Insomnia 564775344 G47.0 0 melatonin helps Heart murmur 32594858 R0 1.1 no symptoms, Cyst of ovary 62402593 N 83.209 see gyne Diverticul itis of colon with perforation 17354021 K57.20 had perforatio n Ex-smoker 0085613 Z87.89 1 LDCT nl Blood in urine 71024164 R31.9 no more symptoms Coronary artery spasm 23 069991 I20.1 no symptoms Hypercalcemia 21331130 E 83.52 avoid calcium supplement Hernia of anterior abdominal wall 915578571 K43.9 S/P REPAIR Adult heal th examination 411285856 Z00.00 [facility]- [facility]Dexa -06/08Colon oscopy - 12/19/2021 - Scheduled 09/17/23FLU- Declined 4COVID- 05/10/20, 05/31/20, 01/2021 Screening for disorder 964244692 Z13.9 [id number] Brad Berry MD [facility] [address] [facility] [place] [address] 05/03/2024 11:46:27 05/03/2024 12:23:17 Essential hypertension 92619549 I10 under control Depressive disorder 3548 9007 F32.9 under control with meds Chronic pancreatitis 235 818975 K86.1 no symptoms Gastroesop hageal reflux disease 255721013 K21.9 better with daily meds, symptoms gets worse if does not take it daily Kidney disease 53000839 N08 seeing nephrology Kidney stone 29280780 N2 0.0 no recurrence , seen urology Insomnia 780615014 G47.0 0 melatonin helps Heart murmur 71248102 R0 1.1 no symptoms, Cyst of ovary 77534294 N 83.209 see gyne Diverticul itis of colon with perforation 41937328 K57.20 had perforatio n Ex-smoker 8135083 Z87.89 1 LDCT nl Blood in urine 95025139 R31.9 no more symptoms Coronary artery spasm 23 228474 I20.1 no symptoms Hypercalcemia 92999268 E 83.52 avoid calcium supplement Hernia of anterior abdominal wall 391810470 K43.9 S/P REPAIR Adult heal th examination 553946401 Z00.00 Mammogram- 10/08 from [facility] at [facility] 01/2020 (Per pt)Dexa -06/08Colon oscopy - 12/19/2021 - Scheduled 09/17/23FLU- Declined 4COVID- 05/10/20, 05/31/20, 01/2021 [id number] Duncan [facility] [address] [place] [address] 06/21/2024 10:36:57 06/21/2024 12:04:42 Pain of knee region 9966597238 M25.562 61762330 [id number] Duncan Carter MD [facility] [address] [facility] [place] [address] 07/31/2024 10:23:24 07/31/2024 10:45:26 Pain of knee region 9757722623 M25.562 73872293 Osteoarthr itis of left knee joint 5238968152 08452 M17.12 62429881 [id number] Brad Berry MD [facility] [address] [facility] [place] [address] 08/11/2024 11:01:34 08/11/2024 11:48:55 Acute urinary tract infection 291271766 N39.0 931241 Lex hematuria 22455743 [id number] Gaffney for hematuria at this time. Scan ordered, to follow up in a month with nephrologi . [id number] Brad Berry MD [facility] [address] [place] [address] 09/05/2024 11:11:49 09/05/2024 12:41:21 Essential hypertension 01535036 I10 under control Depressive disorder 3548 9007 F32.9 under control with meds Chronic pancreatitis 235 626252 K86.1 no symptoms Gastroesop hageal reflux disease 211501338 K21.9 better with daily meds, symptoms gets worse if does not take it daily Kidney disease 36216382 N08 seeing nephrology Kidney stone 14645649 N2 0.0 no recurrence , seen urology Insomnia 284992621 G47.0 0 melatonin helps Heart murmur 18033019 R0 1.1 no symptoms, Cyst of ovary 49740371 N 83.209 see gyne Diverticul itis of colon with perforation 61917649 K57.20 had perforatio n Ex-smoker 0122382 Z87.89 1 LDCT nl Blood in urine 17912920 R31.9 no more symptoms Coronary artery spasm 23 410807 I20.1 no symptoms Hypercalcemia 04370843 E 83.52 avoid calcium supplement Hernia of anterior abdominal wall 135898449 K43.9 S/P REPAIR Adult heal th examination 573255593 Z00.00 [facility]- [facility] ([facility])LD[facility]- 05/18/2024 Dexa -06/08Colon oscopy - 12/19/2021 - Scheduled 09/17/23FLU- Declined 4COVID- 05/10/20, 05/31/20, 01/2021 Microscopic hematuria 19 6802444 R31.29 [id number] treated for uti Health Concerns Section Related Observation LastModified by Organization Detai ls LastModified Time None Recorded Concern Status LastModified by Organization Details LastModified Time None Recorded Advance Directives Directive N: Payers Insurance Date Sequence Insurance Name Policy Number Policy Martinez Covered Member ID Martinez Member ID Guarantor Name 12/10/2022 1 [facility] [employer] - CHOICE PLUS (POS) [id number] Chava Iraheta [id number] Val Iraheta 06/21/2024 2 [place] Val Iraheta [id number] Val Iraheta 09/02/2024 1 [facility] (MEDICARE REPLACEMENT/A DVANTAGE - PPO) [id number] Val Iraheta [id number] Val Iraheta Notes Date Note Type Note Provider Name and Address Organization Details Recorded Time 05/03/2024 text/html She is here for f/u, taking meds daily Hernando is retiring and she is wanting to know if you can start prescribing her rx Pt thinks she might have twisted her knee. WOULD LIKE TO DO A LDCT! PT IS NOT FASTING ([facility]) Hypertension- under control with meds,Meds- Losartan 100 mg qd , Amlodipine 5 mg qdChronic pancreatitis- sees Dr. Villagomez, stable with meds , no symptomsMeds- Zenpep 5,000 u - 17,000 U 24,000 U tid w/mealsDepression/an xiety- mood is better with meds,, no anxiety,Meds- Escitalopram 10 mg qdGERD- better with meds, needs meds daily, Famotidine did not helpMeds-Pantoprazol e 40 mg qd PRNkidney stone- s/p removal in the past, Kidney disease- GFR 46, was 52 , seeing dr Borden/director of food and nutrition- partial hysterectomy, h/o of ovarian cysts, seeing director of food and nutrition,EX-Smoker- quit 2020 , CT scan 09/06 nl, smoked for 45 yrs, 1ppdh/o- perforation and abscess of large intestine due to diverticulitis rectosigmoid colectomy and colostomy was done.colonoscopy in 10/08Fatty liver seen on the CT, watching dietHematuria- had cysto 2020, was told bleeding could be due to vaginitis, no more blood Constipation- takes Bisacodyl as neededHeart Murmur- mild MR, TR , to symptomsInsomnia- on Melatonin 10 mg prn Coronary spasms- she had card cath in 06/07,Meds- on Isosorbide mononitrate, Dr Payne S/p multiple hernia surgeries Hypercalcemia- not on supplement, Brad Berry MD [address] [facility], [place], [address], [place] 05/03/2024 12:21:17 08/11/2024 text/html Patient is 68y/o female who is here for dysuria and blood in urine. Patient reports that she does see nephrology regularly and has an ultrasound and lab work ordered for upcoming appointment with Dr. Gaffney. Patient states this morning she had gone to the bathroom and had visible blood in her urine. She denies fever abdominal pain, flank pain, N/V/D, or dizziness. Dr. Gaffney-nephrology Jennifer Romero, [employer] [address] [facility] [facility], [place], [address], [facility] [place] 08/11/2024 12:06:19 09/05/2024 text/html She is here for f/u, taking meds dailyPT IS NOT FASTING ([facility]) Hypertension- under control with meds,Meds- Losartan 100 mg qd , Amlodipine 5 mg qdChronic pancreatitis- seen Dr. Villagomez, stable with meds , no symptoms, Lipase was highMeds- Zenpep 5,000 u - 17,000 U 24,000 U tid w/mealsDepression/an xiety- mood is better with meds,, no anxiety,Meds- Escitalopram 10 mg qdGERD- better with meds, needs meds daily, Famotidine did not help in the pastMeds-Pantoprazol e 40 mg qd PRNkidney stone- s/p removal in the past Kidney disease- GFR 46, was 52 , [address] Herndon- Jardiance 25mg dailyOb/director of food and nutrition- partial hysterectomy, h/o of ovarian cysts, seeing director of food and nutrition,EX-Smoker- quit 2020 , CT scan 09/06 nl, smoked for 45 yrs, 1ppdh/o- perforation and abscess of large intestine due to diverticulitis rectosigmoid colectomy and colostomy was done.colonoscopy in 10/08Fatty liver seen on the CT, watching diet ,nl LFTHematuria- had cysto 2020, was told bleeding could be due to vaginitis, no more bloodConstipation- takes OTCHeart Murmur- mild MR, TR , to symptomsInsomnia- on Melatonin 10 mg prn Coronary spasms- she had card cath in 06/07,Meds- on Isosorbide mononitrate, Dr Payne S/p multiple hernia surgeries Hypercalcemia- not on supplement, Brad Berry MD [address] [facility] [facility] [address], [place], [address], [place] - [facility] [employer] 09/05/2024 12:30:39 OBGyn Episode No OBEpisode recorded.
--- OUTSIDE RECORDS SUMMARY | 2024-12-21 17:16 | XMS_ITS | Clinical Summary ---
Author Organization [facility] Address [address] [place] [address] Care Team Providers Care Departmental Buyer Name Role Phone Unavailable Primary Care Provider Unavailabl e Social History Tobacco Use Types Packs/Day Years Used Date Smoking Tobacco: Never Assessed Comments Unknown Sex and Gender Information Value Date Recorded Sex Assigned at Not on file Legal Sex Female 1:28 PM CDT Gender Identity Not on file Sexual Orientation Not on file Plan of Treatment Health Maintenance Due Date Last Done Comments BREAST CANCER SCREENING 1997 COLORECTAL SCREENING 2002 Colorectal Cancer Screening 2002 FIT-DNA Q 3 years 2002 FIT/FOBT Q 1 year 2002 Flex Sig/CT Colonography Q 5 years 2002 PNEUMOCOCCAL VACCINE 50+ YEARS (1 of 1 - PCV) 11/06/19 08 RSV VACCINE (60+ or ) (1 - Risk 50-74 years 1-dose series) 11/06/2007 ZOSTER VACCINE (1 of 2) 11/06/2007 INFLUENZA VACCINE (#1) 2024 OSTEOPOROSIS SCREENING 06/14/2028 06/15/2023 DTAP/TDAP/TD VACCINES (2 - Td or Tdap) 07/25/2031 Insurance [facility] [id number]
--- OUTSIDE RECORDS SUMMARY | 2024-12-21 17:16 | XMS_ITS | Data Portability ---
Author Organization [facility] Address [address] [place] [address] Care Team Providers Care Journal Box Inspector Name Role Phone BRAD BERRY Primary Care Provider Assessment Encounter Date Assessment Date Assessment LastModified by Organization Details LastModified Time 09/27/2020 09/27/2020 take flagyl, if cramping still present plan pelvic us. CT scan at pcp negative Not available 09/27/2020 11:10:25 10/02/2020 10/02/2020 estrace creamjaqueline cause of slight bleeding US for pelvic/BLQ pain if ovaries normaljaqueline Not available 10/02/2020 15:35:38 10/25/2020 10/25/2020 continue estrace cream discussed US results- presumably normal ovaries (left not seen) and uterus absent Discussed that I suspect musculoskeletal pain- recommended she ask PCP about hip imaging and consider PT. pt declines PT referral right now. WWE due in Dec. [email or web address] Not available 10/28/2020 10:19:27 09/29/2021 09/29/2021 healthy female exam/menopause patient declines std testing pap - none needed for hyst, but done because of postcoital bleeding mammogram ordered and encourage colonoscopy due this year dexa due Encouraged weight bearing exercise, cannot take calcium FU 1 year or prn come in suzi with next bleeding episode as we cannot tell where it is coming from. does not have uterus so does not need endometrial sampling. pap of cuff done. [email or web address] Not available 09/29/2021 19:00:14 Plan of Treatment Reminders Order Date Submit Date Provider Last Modified By Organization Details Last Modified Time Details Appointments None recorded. Lab None recorded. Referral None recorded. Procedures None recorded. Surgeries None recorded. Imaging US, pelvis 2020 [email or web address] [facility], [place], [address], 12:25:50 US, transvagina l 2020 [facility], [place], [address], 14:24:48 Medication Orders Estrace 0.01% (0.1 mg/gram) vaginal cream 2020 [facility][id number], [address], [place], [place], [id number], 15:36:17 Flagyl 500 mg tablet 2020 [facility][id number], [address] [place], [place], [id number], 15:11:55 Patient TargetsNo targets recorded. Patient InstructionsNo instructions recorded. Reason for Referral None Reported. Results Created Date Observation Date Name Description Value Unit Range Abnormal Flag Note LastModifiedBy Organization Detail LastModifiedTime 09/28/1909/27/2020 VAGIN ITIS/ VAGIN OSIS, DNA PROBE keysha sp. detection, direct probe Negati ve negati ve Not Available [facility] ([facility]) [address], [place], [address], 09/28/2020 10:10:41 09/28/19 21 09/27/2020 VAGIN ITIS/ VAGIN OSIS, DNA PROBE gardnerella vag. detection, direct probe Negati ve negati ve Not Available [facility] ([facility]) [address], [place], [address], 09/28/2020 10:10:41 09/28/19 21 09/27/2020 VAGIN ITIS/ VAGIN OSIS, DNA PROBE trichomonas vag. detection, direct probe Negati ve negati ve Not Available [facility] (Lab) [address], [place], [address], 09/28/2020 10:10:41 09/30/19 22 09/29/2021 IMAGE GUIDE D PAP AND HPV REGAR DLESS image guided Pap, HPV regardless of Pap result SEE RESULT S BELOW CASE REPOR T: Cytol ogy Gynec ologi jaylen Repor t Case: [id number] Autho keren fariha Provi erick: Christin Alvarez MD Colle cted: 09/29 1737 Order ing Locat ion: [place] [facility] Recei gordy: 09/30 0134 First Analilia n: Malia Cai CT Speci men: Analilia den Pap - Image d, Cervi x STATE MENT OF ADEQU ACY: Satis facto ry for evalu ation Trans forma tion zone compo nent prese nt FINAL DIAGN OSIS: Negat susan for Intra epith elial Shahab jose or Bertrand howard (NIL) . Rosamaria clayton kunal d by Malia Cai CT on 2021 at 11:37 AM ----- ----- ----- ----- ----- ----- ----- ----- ----- ----- ----- ----- ----- ----- ----- ----- ----- ---- HPV RESUL TS: HPV mRNA E6/E7 : No HPV mRNA Detec jack NOTE: This high risk HPV mRNA assay detec ts fourt een high- risk HPV types (16, 18, 31, 33, 35, 39, 45, 51, 52, 56, 58, 59, 66, 68) witho ut diffe renti ation . COMME NT: Note: This speci men was revie wed by a Cytot echno logis t and/o r Patho logis t (as indic ated in this repor t) after evalu ation using the Thinp rep Imagi ng Syste m. CLINI JAYLEN INFOR MATIO N: Menst rual Statu s: LMP (if appli cable ): Clini jaylen Histo ry/Pr eviou s Pap: Type of Neopl sandy (if appli cable ): Signi fican t Clini jaylen Findi ngs: Other Histo ry: Hormo fredo (if appli cable ): PAP EDUCA PAKO L NOTE: The Pap Test is a scree den test with an inher ent false negat susan rate. Liqui d-bas ed sampl ing may decre ase, but will not elimi noé, false negat susan resul ts. A negat susan resul t does not precl ude the prese nce and/o r devel opmen t of disea se, since the prese nce of abnor mal cells in the sampl e depen ds on the locat ion of the lesio n and sampl ing techn ique. Melanie nued regul ar scree den is the best metho d of cance r preve ntion . If repor jack cytol ogic findi ng do not corre late with physi jaylen and/o r histo rical findi ngs, furth er inves tigat ion is recom diana d, as clini anne wells nted. Not Available [facility] [address] [place], [address], 10/03/2021 12:39:44 10/08/1910/07/2020 US, pelvi s No observ ation record ed. [email or web address] [facility] [address], [place], [address], 10/07/2020 14:24:39 10/08/19 21 10/07/2020 US, trans vagin al No observ ation record ed. [email or web address] [facility] [address], [place], [address], 10/07/2020 14:24:48 10/08/19 21 10/07/2020 US, pelvi s No observ ation record ed. cindy Lowe [address], [place], [address], 10/09/2020 14:43:59 01/08/20 22 01/07/2022 MAMMO , scree den, bilat eral No observ ation record ed. [email or web address] [facility] [address], [place], [address], 09/10/2022 12:49:13 01/08/2001/07/2022 MAMMO , scree den, bilat eral No observ ation record ed. [email or web address] [facility] [address], [place], [address], 09/10/2022 12:49:14 Result Notes None recorded. Problems Name Problem SNOMED Code Status Onset Date Resolution Date Notes Provider Name and Address Organization Details Recorded Time History of hysterec diana [id number] Completed 198409/27/2020 CHASE, ovaries in, done for endo Nolvia bruno [facility] 09:50:04 Screenin g for malignan t neoplasm of cervix Completed 201009/27/2020 Pap Smear;Pr actice ID: 0001 Nolvia bruno [facility] 09:50:14 Tobacco dependen ce syndrome [id number] Completed 201409/27/2020 Tobacco abuse;Re corded Elsewher e: No Locat ion: [facility] S ource: EHR Muffler Mechanic jean: N Practi ce ID: 0001 Alistair lable Time: 01:00:00 PM Nolvia bruno [facility] 09:50:24 Adult health examinat ion Completed 201409/27/2020 ROUTINE MEDICAL EXAM;Rec orded Elsewher e: No Locat ion: [facility] S ource: EHR Muffler Mechanic jean: N Merlineti ce ID: 0001 Alistair lable Time: 01:00:00 PM Nolvia Power damion, [facility] 09:49:46 Microsco pic hematuri a [id number] Completed 201409/27/2020 MICROSCO PIC HEMATURI A;Record ed Elsewher e: No Locat ion: [facility] S ource: EHR [facility] jean: N Merlineti ce ID: 0001 Alistair lable Time: 01:00:00 PM Nolvia Power [facility], [facility] 09:50:10 Speciali zed medical examinat ion Completed 201409/27/2020 Gynecolo gical Examinat ion;Marty rded Elsewher e: No Locat ion: [facility] S ource: EHR [facility] jena: N Merlineti ce ID: 0001 Alistair lable Time: 01:00:00 PM Nolvia Power damion, [facility] 09:50:22 Disorder of bone and articula r cartilag e [id number] Completed 201409/27/2020 Osteopen ia;Recor ded Elsewher e: No Locat ion: [facility] S ource: EHR Muffler Mechanic jean: N Merlineti ce ID: 0001 Alistair lable Time: 09:30:00 AM Nolvia Power damion [facility] 1 09:49:52 Malaise and fatigue 842489316 Completed 201409/27/2020 Fatigue; Recorded Elsewher e: No Locat ion: [facility] S ource: EHR [facility] jean: N Merlineti ce ID: 0001 Alistair lable Time: 09:30:00 AM Nolvia Power damion [facility] 1 09:50:08 Screenin g for malignan t neoplasm of rectum Completed 201609/27/2020 Screenin g for malignan t neoplasm s of the rectum;R ecorded Elsewher e: No Locat ion: [facility] S ource: EHR Muffler Mechanic jean: N Practi ce ID: 0001 Alistair lable Time: 10:30:00 AM Nolvia Power [facility], [facility] 09:50:[address] Concept Completed 201709/27/2020 Encntr for general adult medical exam w/o abnormal findings ;Recorde d Elsewher e: No Locat ion: [facility] S ource: EHR Muffler Mechanic jean: N Practi ce ID: 0001 Alistair lable Time: 01:45:00 PM Nolvia Power [facility] 09:50:18 Human papillom avirus deoxyrib onucleic acid detected , high risk on cervical specimen [id number] Completed 201709/27/2020 Cervical high risk HPV DNA test positive ;Recorde d Elsewher e: No Locat ion: [facility] S ource: EHR Muffler Mechanic jean: N Practi ce ID: 0001 Alistair lable Time: 01:45:00 PM Nolvia Power [facility] 09:50:06 Evaluati on finding Completed 201709/27/2020 Abnormal Pap smear of cervix;R ecorded Elsewher e: No Locat ion: [facility] S ource: EHR Muffler Mechanic jean: N Practi ce ID: 0001 Alistair lable Time: 01:45:00 PM Nolvia Power [facility] 09:49:59 Evaluati on finding Completed 201709/27/2020 Oth abn and inconclu sive findings on dx imaging of breast;R ecorded Elsewher e: No Locat ion: [facility] S ource: EHR Muffler Mechanic jean: N Practi ce ID: 0001 Alistair lable Time: 09:59:34 AM Nolvia bruno [facility] 09:49:[address] Concept Completed 201809/27/2020 Encntr for sr. media manager exam (general ) (routine ) w/o abn findings ;Recorde d Elsewher e: No Locat ion: [facility] S ource: EHR Muffler Mechanic jean: N Merlineti ce ID: 0001 Alistair lable Time: 01:00:00 PM Nolvia Power [facility] 09:50:20 Bronchit is [id number] Completed 201809/27/2020 Bronchit is;Recor ded Elsewher e: No Locat ion: [facility] S ource: EHR Muffler Mechanic jean: N Hang ce ID: 0001 Alistair lable Time: 01:00:00 PM Nolvia bruno [facility] 09:49:48 Osteopen ia [id number] Completed 201909/27/2020 cannot take calcium Nolvia Power [facility] 09:50:12 Former heavy tobacco smoker [id number] 4100 Completed 201909/27/2020 Nolvia Power [facility] 09:50:01 Divertic ulitis [id number] Completed 201909/27/2020 ostomy and reversal 2019 Nlovia Power [facility], [facility] 09:49:54 Essentia l hyperten bhavani [id number] Completed 201909/27/2020 Nolvia Power [facility] 09:49:56 Problem Notes None recorded. Procedures Surgical History Date Name Laterality Status Provider Name and Address Organization Details Recorded Time 02/15/19 21 Date of Last Mammogram completed Maryse Pappas [facility] 09/29/2021 18:02:47 02/15/19 21 Most Recent Bone Density completed Maryse Pappas [facility] 09/29/2021 18:03:11 09/16/19 20 completed Christin Parker MD [address], [place], [address], [facility] 12/25/2019 11:34:22 09/16/19 20 Colonoscopy completed Nolvia Power [facility] 09/26/2020 16:27:02 02/15/19 20 Date of Last Colonoscopy [facility] 09/29/2021 18:03:05 06/15/19 19 Date of Last Pap Smear [facility] 09/29/2021 14:49:54 02/15/19 10 colonoscopy [facility] 12/25/2019 10:55:55 02/15/18 85 total abdominal hysterectomy completed Christin Parker MD [address], [place], [address], [facility] 12/25/2019 11:35:58 Imaging Results None recorded. Procedure Notes None recorded. Medical Equipment None Reported. Allergies Allergen ID Allergen Name Allergen Category Reaction Reaction Severity Criticality Documentation Date Start Date Code Code System Note Provider Name and Address Organization Details Recorded Time 2627 Product containin g penicilli n (product) medicatio n Not available Not available Not available 12/22/2019 44694 8001 SNOMED Maryse bruno, [facility] 0 17:12:49 Medications Name Sig Start Date Stop Date Status Note LastModified by Organization Details LastModified Time clindamyc in HCl 300 mg capsule TK ONE C PO BID 09/27 completed Not Available Not Available Not Available azithromy john 250 mg tablet 09/26 completed Not Available Not Available Not Available metronida zole 500 mg tablet TAKE 1 TABLET BY MOUTH EVERY 12 HOURS 10/02 completed Not Available Not Available Not Available acetamino phen 300 mg-codein e 30 mg tablet TK 1 T PO Q 4 TO 6 H PRN 09/27 completed Not Available Not Available Not Available ciproflox acin 250 mg tablet TK 1 T PO Q 12 H FOR 5 DAYS 09/27 completed Not Available Not Available Not Available peg-elect rolyte solution 420 gram oral solution MIX UTD AND DRINK 1/2 AT 5 PM ON 11/22 AND 1/2 AT 5 AM ON 11/23 completed Not Available Not Available Not Available oxycodone -acetamin ophen 5 mg-325 mg tablet TK 1 T PO Q 4 TO 6 H PRN 10/02 completed Not Available Not Available Not Available potassium chloride ER 20 mEq tablet,ex tended release(p art/cryst ) TAKE ONE TABLET BY MOUTH TWICE DAILY 10/02 completed Not Available Not Available Not Available pantopraz ole 40 mg tablet,de layed release TAKE 1 TABLET BY MOUTH EVERY DAY active Not Available Not Available No t Available Cipro 500 mg tablet take 1 tablet by oral route every 12 hours 09/26 completed Prescrib ed Elsewher e: No Locat ion: [facility] M odify By: james alfred DateTime : 06/15/19 19 01:00:00 PM Not Available Not Available Not Available Aspirin Childrens 81 mg chewable tablet chew 1 tablet by oral route every day 10/02 completed Prescrib ed Elsewher e: Yes Loca tion: [facility] M odify By: amanda vargas DateTime : 03/08/19 15 01:00:00 PM Not Available Not Available Not Available bisacodyl 5 mg tablet,de layed release TAKE 6 TS PO AT 8 AM ON 11/22 completed Not Available Not Available Not Available estradiol 0.01% (0.1 mg/gram) vaginal cream Insert 0.5 g every day by vaginal route for 30 days. active Not Available Not Available No t Available neomycin 500 mg tablet 10/02 completed Not Available Not Available Not Available losartan 100 mg tablet TAKE 1 TABLET BY MOUTH EVERY DAY active Not Available Not Available No t Available dicyclomi ne 10 mg capsule TAKE 1 CAPSULE BY MOUTH THREE TIMES DAILY NEEDED 09/29 completed Not Available Not Available Not Available escitalop frederick 10 mg tablet TAKE 1 TABLET BY MOUTH EVERY DAY active Not Available Not Available No t Available escitalop frederick 5 mg/5 mL oral solution take 10 millilit er by oral route every day 10/02 completed Prescrib ed Elsewher e: Yes Loca tion: Levi laura [facility] odify By: britt gutierrez DateTime : 12/16/19 01:45:00 PM Not Available Not Available Not Available Wellbutri n XL 300 mg 24 hr tablet, extended release take 1 tablet by oral route every day 12/15 completed Prescrib ed Elsewher e: No Locat ion: Levi laura [facility] odify By: britt gutierrez DateTime : 03/08/19 01:00:00 PM Not Available Not Available Not Available nitrofura ntoin monohydra te/macroc rystals 100 mg capsule TAKE 1 CAPSULE BY MOUTH EVERY 12 HOURS 09/26 completed Not Available Not Available Not Available losartan 09/27 completed Not Available Not Available Not Available pantopraz ole 09/27 completed Not Available Not Available Not Available Lexapro 10/02 completed Not Available Not Available Not Available peg 3350-elec trolytes 236 gram-22.7 4 gram-6.74 gram-5.86 gram solution DRK OVER 2 TO 3 H STARTING AT 7 AM 10/02 completed Not Available Not Available Not Available Protonix 40 mg granules delayed-r elease packet take 1 packet by oral route every day mixed in 1 teaspoon ful of applesau ce or apple juice 09/27 completed Prescrib ed Elsewher e: Yes Loca tion: Levi laura [facility] odify By: britt gutierrez DateTime : 12/16/19 01:45:00 PM Not Available Not Available Not Available Zenpep 09/27 completed Not Available Not Available Not Available Centrum Silver Ultra Men's 300 mcg-60 mcg-600 mcg-300 mcg tablet 10/02 completed Prescrib ed Elsewher e: Yes Loca tion: [facility] odify By: amanda vargas DateTime : 03/08/19 01:00:00 PM Not Available Not Available Not Available Qbrelis 1 mg/mL oral solution take 10 millilit er by oral route every day 10/02 completed Prescrib ed Elsewher e: Yes Loca tion: [facility] odify By: britt gutierrez DateTime : 12/16/19 18 01:45:00 PM Not Available Not Available Not Available Zenpep 5,000 unit-17,0 00 unit-24,0 00 unit capsule,d elayed release TAKE ONE CAPSULE BY MOUTH THREE TIMES DAILY WITH MEALS active Not Available Not Available No t Available Zenpep 10,000 unit-32,0 00 unit-42,0 00 unit capsule,d elayed release take 1 capsule by oral route 3 times every day with meals and 1 capsule with each snack swallowi ng whole. Do not crush, chew and/or divide. active Prescrib ed Elsewher e: Yes Loca tion: [facility] odify By: britt gutierrez DateTime : 12/16/19 01:45:00 PM Not Available Not Available Not Available ID NOW COVID-19 Test Kit USE 1 KIT TODAY DIRECTED 09/29 completed Not Available Not Available Not Available Vitals Date Recorded Body height Body mass index (BMI) Body weight Systolic And Diastolic Provider Name and Address Organization Details Last Updated DateTime 09/27/2020 154.94 cm 28.5 kg/m2 70696.45 g 131/72 mm[Hg] Nolvia Power [facility] 09/27/2020 09:49:06 Date Recorded Body height Body mass index (BMI) Body weight Systolic And Diastolic Systolic And Diastolic Provider Name and Address Organization Details Last Updated DateTime 09/29/2021 154.94 cm 28.5 kg/m2 38025.45 g 151/75 mm[Hg] 148/78 mm[Hg] Maryse Pappas [facility] 18:02:21 Date Recorded Body height Body mass index (BMI) Body weight Systolic And Diastolic Systolic And Diastolic Provider Name and Address Organization Details Last Updated DateTime 10/02/2020 154.94 cm 28.5 kg/m2 80684.45 g 154/78 mm[Hg] 160/82 mm[Hg] [facility] 15:11:28 Date Recorded Body height Body mass index (BMI) Body weight Systolic And Diastolic Provider Name and Address Organization Details Last Updated DateTime 10/25/2020 154.94 cm 28.7 kg/m2 76588.04 g 126/67 mm[Hg] [facility] 10/25/2020 11:53:54 Social History Question Answer Notes LastModified by Organizat ion Details LastModified Time Tobacco Smoking Status Former Smoker quit 09/2019 [facility] 09/[facility]2021 17:52:59 Do You Have An Advance Directive? No [email or web address] Information not available 09/27/2020 Are You Blind Or Do You Have Difficulty Seeing? No [email or web address] Information not available 09/27/2020 What Is Your Level Of Caffeine Consumption? Moderate [email or web address] Information not available 09/27/2020 In The 14 Days Before Symptom Onset, Have You Had Close Contact With A Laboratory-confir med COVID-19 While That Case Was Ill? No [email or web address] Information not available 09/27/2020 In The 14 Days Before Symptom Onset, Have You Had Close Contact With A Person Who Is Under Investigation For COVID-19 While That Person Was Ill? No [email or web address] Information not available 09/27/2020 Have You Been To An Area Known To Be High Risk For COVID-19? No [email or web address] Information not available 09/27/2020 Are You Deaf Or Do You Have Serious Difficulty Hearing? No [email or web address] Information not available 09/27/2020 What Type Of Diet Are You Following? REGULAR [email or web address] Information not available 09/27/2020 What Is The Highest Grade Or Level Of School You Have Completed Or The Highest Degree You Have Received? [id number] [email or web address] Information not available 09/27/2020 Are There Any Guns Present In Your Home? No [email or web address] Information not available 09/27/2020 Do You Use Protection During Sex? No [email or web address] Information not available 09/27/2020 Do You Use Your Seat Belt Or Car Seat Routinely? Yes [email or web address] Information not available 09/27/2020 Do You Have Smoke And Carbon Monoxide Detectors In Your Home? Yes [email or web address] Information not available 09/27/2020 At What Age Did You Start Smoking Tobacco? 18 [email or web address] Information not available 09/27/2020 How Much Tobacco Do You Smoke? No [email or web address] Information not available 09/27/2020 Do You Use Sunscreen Routinely? Yes [email or web address] Information not available 09/27/2020 Has Tobacco Cessation Counseling Been Provided? No [email or web address] Information not available 09/29/2021 Have You Used IV Drugs? No [email or web address] Information not available 09/27/2020 Sex: Unknown Functional Status Question Answer Note LastModified by Organizat ion Details LastModified Time Do you use any illicit or recreational drugs? No [email or web address] Information not available 09/27/2020 Do you or have you ever used any other forms of tobacco or nicotine? No Information not available 09/29/2021 What is your level of alcohol consumption? Occasional Information not available 09/27/2020 Are you able to walk independently without assistance or assistive devices? YESWOREST [email or web address] Information not available 09/27/2020 What is your occupation? Retired [email or web address] Information not available 09/27/2020 What is your exercise level? Occasional [email or web address] Information not available 09/27/2020 Mental Status Question Answer Note LastModified by Organization D etails LastModified Time Do you feel stressed (tense, restless, nervous, or anxious, or unable to sleep at night)? [id number] [email or web address] Information not available 09/27/2020 Family History Relationship Description Onset Age of this Age Resolved Age Notes LastModified by Organization Details LastModified Time Mother Hypertensive disorder [email or web address] Not available 2019 17:12:39 Notes:Mother: Hypertension Medical History Condition Response Ovarian Cancer N Diabetes N Breast Cancer N History of abnormal pap Y Cancer N Urinary Tract Infection Y Abuse/Domestic Violence N Stroke N Thyroid Problems N GI Problems Y Neurologic/Epilepsy N Breast Problem N Endometriosis Y History of STI Y Heart Disease N Polycystic ovary syndrome N Hypertension Y Osteoporosis N Gynecological History Statement/Question Response Abnormal Pap Yes Date of Last Mammogram 02/16/2020 Date of LMP 02/16/1984 N STIs/STDs Y HPV Vaccine N Current Control Method None Age at First Child 22 If Post Menopausal, Age at Menopause 54 Date of Last Colonoscopy 02/15/2019 Most Recent Bone Density 02/16/2020 Sexually Active? Y Menses Monthly N Age of first menstrual cycle 14 Date of Last Pap Smear 06/14/2018 LMP Unknown 09/16/2019 N 06/14/2018 Obstetrics History GPAL:G 1 P 1 0 0 1 Type Value Full Term 1 Living 1 Total 1 Past Encounters Encounter ID Performer Location Encounter Start Date Encounter Closed Date Diagnosis/Indication Diagnosis SNOMED-CT Code Diagnosis ICD10 Code Diagnosis IMO Codes Diagnosis Note [id number] Christin Parker MD [facility] [address],[place] [address] 12/25/2019 10:45:43 12/25/2019 14:34:38 Gynecologic examination [id number] Z01.419 Blood in urine 76855990 R31.9 [id number] Jacqueline Vicente [facility] [address] [place] [address] 07/09/2020 14:07:19 07/09/2020 15:54:23 Urinary tract infectious disease [id number] N39.0 [id number] Charline Marrero [facility] [address] [place] [address] 09/27/2020 09:25:11 09/27/2020 11:16:25 Vaginitis 31636113 N76.0 [id number] Christin Parker MD [facility] [address] [place] [address] 10/02/2020 14:57:59 10/02/2020 15:37:14 Atrophic vaginitis 44554997 N95.2 Lower abdominal pain 545 76457 R10.30 Pain in pelvis 49715705 R10.2 [id number] Christin Parker MD [facility] [address],[place] [address] 10/07/2020 11:06:05 10/07/2020 11:50:38 Pain in pelvis 26846697 R10.2 [id number] Christin Parker MD [facility] [address],[facility] [place] [address] 10/25/2020 11:36:40 10/27/2020 23:11:13 Right flank pain 116224586 R10.9 Atrophic vaginitis 16846 000 N95.2 [id number] Christin Parker MD [facility] [address],[place] [address] 09/29/2021 17:51:40 09/30/2021 16:26:34 Gynecologic examination [id number] Z01.419 Z11.51 Postcoital bleeding 4888 0000 N93.0 Health Concerns Section Related Observation LastModified by Organization Detai ls LastModified Time None Recorded Concern Status LastModified by Organization Details LastModified Time None Recorded Advance Directives Directive N: Payers Insurance Date Sequence Insurance Name Policy Number Policy Martinez Covered Member ID Martinez Member ID Guarantor Name 09/26/2021 1 [facility] [id number] Chava Iraheta [id number] Michele Iraheta Notes Date Note Type Note Provider Name and Address Organization Details Recorded Time 09/27/2020 text/html ROS as noted in the HPI cramping in low abd, discharge, pain with intercourse, saw urology and pcp, ct negative, no kidney stones, cystoscopy negative Charline Marrero CNM [address], [place], [address], [facility] 09/27/2020 11:10:37 10/02/2020 text/html Michele is here for intermittent but persistent bloody vaginal discharge. Worse after intercourse. Has had normal urine culture and vaginitis panel. s/p hyst. ovaries in. Also complains of BLQ pain and tenderness after sex. history of bowel surgeries. Christin Parker MD [address], [place], [address], [facility] 10/02/2020 15:36:24 10/25/2020 text/html Here for FU of BLQ pain, pt now says mostly right and more flank than RLQ. US on 10/07 showed uterus absent, right ov with one 1.5cm simple cyst and left ovary not seen. She started estrace cream for atrophic bleeding and states this is helping. Her pain is still bothering her a lot though. She states it is worse with movement. Has not seen GI. Pcp told her to talk to us. Christin Parker MD [address], [place], [address], [facility] 10/28/2020 10:20:04 09/29/2021 text/html Patient is a 65yo who presents for an annual exam. She had a hyst years ago, ovaries in. Normal U:S last year for RLQ pain, this has continued. She also had an episode of bleeding in July 2 d after sex that was significant. no vaginal pain with it. none since. She had tried the estrace cream for 2 mos, no difference so she stopped it. mammo-2020 colonoscopy-2019, every 2 years dexa-2020 osteopenia, cannot take calcium sexually active-y seatbelts-y exercise-y depression-denies domestic violence-denies tobacco-n concerns- Christin Parker MD [address], [place], [address], [facility] 09/29/2021 19:01:03 OBGyn Episode Ob Episode Information Episode Created Date Number of Fetuses Patient Bloodtype Patient rh Status Prepregnancy Weight lbs Domestic Partner Domestic Partner Phone Father Name Oracle Programmer Analyst Status 09/28/19 21 1 CLOSED Fetus Data First Name Last Name Admitted to NICU Weight (g) Sex Living Outcome Pediatric Complications Fetus ID Race Codes Race Delivery Type 3231.84 3 M Full Term [id number] Vaginal Delivery Rich Calculation Initial Rich Date Initial Exam Date Initial Exam Provider Initial Ultrasound Date Last Menstrual Period Date Ultra Sound Weeks Gestation 0 Eighteen To Twenty Week Rich Update Ultra Sound Date Fundal Height At Umbil Quickening Date Ultra Sound Latest Weeks Gestation Final Rich Confirmed By Final Rich Confirmed Date Final Rich Date Ultra Sound Latest Days Gestation 0 0 Menstrual History Last Menstrual Date Menses Monthly On Bcp Conception Prior Menses Frequency Hcg Plus Date Menarche Onset Age Delivery Information Delivery Date Delivery Type Labor Anesthesia Weeks Gestation Incision Type Labor Labor Length Hrs Delivered By Post Complications Tubal Sterilization Discharge Date Comments 8 40 Discharge Information Feeding Method Contraceptive Method Maternal HG B and HCT Levels
== END 2024-12-21 08:27 | disposition home or self-care (01) ==
LOC: ANHSURGERY 08:29
PROVIDERS: Anesthesiology; PCP Internal Medicine; Visit Provider Urology
DX: Z01.818 Encounter for other preprocedural examination (principal); R94.31 Abnormal electrocardiogram [ECG] [EKG]; N18.9 Chronic kidney disease, unspecified; E11.22 Type 2 diabetes mellitus with diabetic chronic kidney disease
CPT/HCPCS: 36415; 80048; 85610; 85730; 93005

== ENCOUNTER 2024-12-26 00:59 | Day surgery (SDC) | payer MEDICARE, SELFPAY ==
[2024-12-20 15:09] VITALS: BMI 27.8
--- NOTE | 2024-12-20 15:21 | PC.NURSE ---
[facility] has started construction of its new state of the art ER which will open Spring 2026. With this, we anticipate parking may be a challenge for some our surgical patients and families. Parking spaces are limited but are available for all Surgical, obstetrics, and ER patients sharing this lot. If you arrive and find you are having a hard time finding a parking space, please note that we understand the challenges, please drive around the hospital and park near Hospital Entrance 1. When you enter this entrance, you can ask a volunteer to direct or take you back to the surgical waiting area to check in. We appreciate everyone?s understanding of these expected challenges while we build for your future. Report to the Outpatient Waiting Room, entrance under the green pavilion located off [address], at time __0630am on date ___12/26/24____. Planned Procedure Time: _0830am .? Time changes happen often and if your time is changed the preop area will call you the afternoon before. - You and your visitor will be asked to self-screen and do not enter if you have any COVID symptoms. Please call surgeon if you need to reschedule. - A mask is optional within the hospital at this time. Patients may have clear liquids (water, carbonated beverages, clear teas, apple juice) until 3 hours prior to surgery with a maximum of 20 ounces. - No food from midnight until time of surgery and no smoking, or chewing tobacco (or any form of nicotine). No chewing gum, candy or mints. (05:30am) Take only the following medications with a SIP of water on the morning of surgery: Amlodipine and Isosorbide DO NOT STOP ANY OF YOUR OTHER PRESCRIPTION MEDICATIONS PRIOR TO SURGERY EXCEPT THE FOLLOWING Hold all vitamins and supplements for 3 days per anesthesiologist. Medications to discontinue per physician HOLD ASPIRIN/NSAIDS For [address] Delacruz Date to take last dose 12/18/24 Please no make-up, nail greek, hairspray, perfume, deodorant, or body powder the day of surgery.? No jewelry (including any body piercings) or valuables the day of surgery, leave them at home.? Please take a shower or bath the night before, or the morning of, surgery with an antibacterial soap.? GOLD DIAL Wear comfortable, loose fitting clothing.? - Jewelry must be removed prior to entering the operating room.? Rings and piercings that are not removed may be cut off. - The hospital will not accept responsibility for valuables.? - Please leave all valuables, including medications, at home the day of surgery. If you are going home after surgery, a licensed assembly line driver must drive you home.? - NO public transportation without another adult if you receive anesthesia. - We recommend that an adult stay with you for 24 hours following discharge. - We also recommend that you do not drive, make important decision, drink alcoholic beverages, or take any drugs that were not prescribed by your health care provider for at least 24 hours after your discharge time. Follow any additional instructions given to you from your surgeon. Telephone instructions given to ___Patient and asked if any additional questions and then verbalized understanding. Patient advised to call surgeon office or pre surgery nurse liaison [phone] if any additional questions.
[2024-12-26] VITALS (7 sets, daily range): BP systolic 93–119; BP diastolic 50–65; PULSE 54–70; RESP 10–17; TEMP 36.4–37.2; O2SAT 96–100
--- NOTE | ~2024-12-26 | XR_ITS ---
EXAMINATION: XR retrograde pyelo w/stent RT DATE: 12/26/2024 08:57 INDICATION: Right retrograde pyelogram and stent placement TECHNIQUE: 7 fluoroscopic images of the abdomen and pelvis were obtained procedure performed by Dr. Delacruz. Radiologist was not present for the imaging or procedure. The amount of fluoroscopy time used during this procedure was 0.3 minutes. The dose area product was 0.242 mGym^2. COMPARISON: CT dated 10/04/2024 FINDINGS: Retrograde contrast injection into the right ureter and renal collecting system demonstrates a large lucent filling defect in the right renal pelvis corresponding to the 1.4 cm stone seen on prior CT. Subsequent placement of a right internal ureteral stent with loops formed in a middle calyx of the right kidney and the distal loop in the bladder. The lucent filling defect corresponding to stone appears to have shifted peripherally on the final images were checked over the proximal loop of the stent. IMPRESSION: 1. Persistent 1.4 similar right renal stone with placement of a right internal ureteral stent which is in expected position. See procedure note for further detail. Reviewed, dictated and finalized at location A. [facility]ERED NURSE [facility]IAC IMPRESSION: 1. Persistent 1.4 similar right renal stone with placement of a right internal ureteral stent which is in expected position. See procedure note for further de tail.
--- OUTSIDE RECORDS SUMMARY | 2024-12-26 01:01 | XMS_ITS | Clinical Summary ---
Author Organization [facility] Address [address] [place] [id number] Care Team Providers Care C Consultant Name Role Phone Unavailable Primary Care Provider [...] (2 - Td or Tdap) 07/25/2031 Insurance [facility] [id number]
--- OUTSIDE RECORDS SUMMARY | 2024-12-26 01:01 | XMS_ITS | Clinical Summary ---
Author Organization [facility] Address [address] [place] [address] Care Team Providers Care News Gathering Technician Name Role Phone Carlos Mosley MD Primary Care Provider [phone] Medications indapamide (LOZOL) 2.5 MG tablet Take 1 tablet (2.5 mg total) by mouth 1 (one) time each day in the morning 90 tablet 1 10/27/2023 Active Empagliflozin (Jardiance) 25 MG tablet Take 25 mg by mouth 1 (one) time each day in the morning 30 tablet 5 06/28/2024 Active amLODIPine (NORVASC) 5 MG tablet TAKE 1 TABLET(5 MG) BY MOUTH EVERY NIGHT 90 tablet 1 09/07/2024 Active metFORMIN XR (GLUCOPHAGE-XR) 500 MG 24 hr tablet Take 1 tablet (500 mg total) by mouth 1 (one) time each day in the morning Do not crush, chew, or split. 90 tablet 1 10/04/2024 Active olmesartan (BENICAR) 40 MG tablet TAKE 1/2 TABLET BY MOUTH EVERY NIGHT 90 tablet 1 11/20/2024 Active Active Problems Problem Noted Date Diagnosed Date Essential hypertension 09/21/2024 Encounters Date Type Department Care Team Description 11/19/2024 Refill [facility], [address] [phone] Alverto Gaffney DO 10/17/2024 Documentation Only [facility], [address] [address] Alverto Gaffney DO 10/17/2024 Documentation Only [address] [address] Alverto Gaffney DO 10/04/2024 1:30 PM CDT Office Visit [address] [address] Alverto Gaffney DO Stage 3a chronic kidney disease (HCC) (Primary Dx); Persistent proteinuria; Nephrolithiasis; Coronary artery spasm (HCC); Hypertensive chronic kidney disease; Gastroesophageal reflux disease; Pancreatitis 10/04/[address] [address] Alejandrina Lin CMA from Last 3 Months Social History Tobacco Use Types Packs/Day Years Used Date Smoking Tobacco: Never Assessed Comments Unknown Sex and Gender Information Value Date Recorded Sex Assigned at Not on file Legal Sex Female 4:20 PM EDT Gender Identity Not on file Sexual Orientation Not on file Last Filed Vital Signs Vital Sign Reading Time Taken Comments Blood Pressure 118/60 10/04/2024 1:25 PM CDT Pulse 76 10/04/2024 1:25 PM CDT Temperature 36.7 C (98 F) 10/04/2024 1:25 PM CDT Respiratory Rate 18 10/04/2024 1:25 PM CDT Oxygen Saturation 99% 10/04/2024 1:25 PM CDT Inhaled Oxygen Concentration - - Weight 69.4 kg (153 lb) 10/04/2024 1:25 PM CDT Height 157.5 cm (5' 2) 11/17/2023 12:07 PM CDT Body Mass Index 27.98 11/17/2023 12:07 PM CDT Plan of Treatment Upcoming Encounters Date Type Department Care Team (Late st Contact Info) Description 01/17/2025 1:00 PM TARE MAN Office Visit [address] [place] [address] Alverto Gaffney, DO [address] [place] [address] [address] [place] [address] Health Maintenance Due Date Last Done Comments Breast Cancer Screening 1955 Pneumococcal Vaccine: 50+ Ye ars (1 of 2 - PCV) 1976 Colorectal Cancer Screening: Annual FOBT 2006 Colorectal Cancer Screening: Colonoscopy 2006 Colorectal Cancer Screening: Sigmoidoscopy 2006 Influenza Vaccine (#1) 2024 Hepatitis B Vaccine Aged Out No longe r eligible based on patient's age to complete this topic Procedures Procedure Name Priority Date/Time Associated Diagnosis Comments L[facility]INK KID[facility] STONE URINE PANEL Routine 11/01/2024 3:00 AM CDT Stage 3a chronic kidney disease (HCC) Persistent proteinuria Nephrolithiasis Coronary artery spasm (HCC) Hypertensive chronic kidney disease Gastroesophageal reflux disease Pancreatitis from Last 3 Months Results * (ABNORMAL) [facility]ink Kidney Stone Urine Panel, 24 Hour (11/01/2024 3:00 AM CDT) Cystine, Ur CANCELED [facility] Comment: Test not performed. Previous test results on file. Result canceled by the ancillary. Urine Volume (Preservative) 2,750 500 - 4,000 mL/24 hr [facility] Calcium Oxalate 6.19 6.00 - 10.00 [facility] Calcium, 24H Urine 147 <200 mg/24 hr [facility] Oxalate, 24H Ur 50(H) 20 - 40 mg/24 hr [facility] Citrate, 24H Ur 512(L) >550 mg/24 hr [facility] Calcium Phosphate Saturation 0.14(L) 0.50 - 2.00 [facility] pH, 24 Hr Urine 5.602(L) 5.800 - 6.200 [facility] Uric Acid Saturation 0.82 <1.00 [facility] Uric Acid, 24H Ur 555 <750 mg/24 hr [facility] Sodium, 24H Ur 121 50 - 150 mmol/24 hr [facility] Potassium, 24H Ur 68 20 - 100 mmol/24 hr [facility] Magnesium, 24H Ur 32 30 - 120 mg/24 hr [facility] Phosphorus 24 Hour Urine 652 600 - 1,200 mg/24 hr [facility] Ammonia, 24 hr Urine 54 15 - 60 mmol/24 hr [facility] Chloride, 24H Ur 125 70 - 250 mmol/24 hr [facility] Sulfate, 24H Ur 30 20 - 80 meq/24 hr [facility] Urea Nitrogen, 24H Ur 8.81 6.00 - 14.00 g/24 hr [facility] Protein Catabolic Rate, (14) 1.0 0.8 - 1.4 g/kg/24 hr [facility] Creatinine in 24 hour Urine 1,350 Not Applic. mg/24 hr [facility] Creatinine/KG Body Weight 19.8 8.7 - 20.3 mg/24 hr/kg [facility] Calcium/KG Body Weight 2.2 <4.0 mg/24 hr/kg [facility] Calcium/Creat.R atio 109 51 - 262 mg/g creat [facility] Comment Note [facility] PDF . [facility] Urine Urine specimen / Unknown 11/01/2024 3:00 AM CDT 11/01/2024 11:00 PM CDT Narrative [facility] - 11/07/2024 5:09 AM CDT Test(s) [id number]-Ftwqrri, Urine, Qualitative; [id number]-Famjtov, Urine; [id number], 24 hr, Urine; [id number]-Blcyfsox, Urine; [id number]- Sulfate, Urine was developed and its performance characteristics determined by [facility]. It has not been cleared or approved by the Food and Drug Administration. Alverto Gaffney DO LAB URINE ORDERABLES Edited Result - Final [facility] [address] [place] [phone] from Last 3 Months Insurance [facility] Medicare Care Teams News Gathering Technician Relationship Specialty Start Date End Date Carlos Mosley MD [address] [place] [address] PCP - General Internal Medicine 09/16/21
--- OUTSIDE RECORDS SUMMARY | 2024-12-26 01:02 | XMS_ITS | Data Portability ---
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 She has kidney disease. 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 [facility], [address], [place], [address], 09/13/2024 04:09:31 CBC w/ auto diff 2024 025 [email or web address] [facility], [address], [place], [address], 09/13/2024 04:09:27 urinaly sis, dipstic k 2024 025 tramaine [facility] [address], [address] [place], [address], 08/11/2024 11:47:16 urinaly sis complet e, reflex culture 2024 025 [email or web address] [facility], [address], [place], [address], 08/15/2024 10:02:25 Referral physica l therapi st referra l - Please contact patient to schedul e 2024 025 [facility] [place], [address] [facility], [place], [address], 07/14/2024 11:50:36 Procedures None recorde d. Surgeries None recorde d. Imaging XR, knee 2024 025 [facility] [place], [address], [place], [address], 06/21/2024 14:48:48 LDCT, chest, for lung cancer screeni ng 2024 025 [email or web address] [facility], [address], [place], [address], 05/03/2024 12:41:05 Medication Orders Bactrim DS 800 mg-160 mg tablet 2024 025 [id number], [address], [place], [place], [id number], 08/11/2024 11:35:50 prednis one 10 mg tablets in a dose pack [email or web address] [facility] [address] [id number], [address], [place], [place], [id number], 06/21/2024 13:58:20 pantopr azole 40 mg tablet, delayed release 2024 025 [facility][id number], [address], [place], [place], [id number], 05/03/2024 12:20:45 Patient TargetsNo targets recorded. Patient Instructions Encounter Date Encounter Id Patient Instructions Last Modified By Organization Details Last Modified Time 05/03/2024 [id number] [facility] Plan and Screening Recommendations Advance Directives [...] screening necessary Osteoporosis Screening: Your next DEXA [id number] Date Screening Last Performed: _05/2023 Colon Cancer Screening: Colonoscopy Date Screening Last Performed: 12/2021_ Eye Disease Screening: Recommended today Dementia Risk: Low I have no recommendations Depression Screening: Negative I have no recommendations. [email or web address] Not available 05/03/2024 11:57:31 08/11/2024 [id number] Discussed the importance of antibiotic therapy compliance. Patient needs to take medication as prescribed, including completing entire course even if symptoms improve/resolve. Discussed possible side effects of medication. Instructed patient to take medication with food to prevent stomach upset and increase daily water intake. Patient will follow up in 3-4 days if symptoms are not improving or worsen while taking antibiotics. Not available 08/11/2024 11:41:19 Discussed importance of [...] verbalized understanding and agreement to treatment plan. [email or web address] Not available 08/11/2024 11:43:06 09/05/2024 [id number] Personalized [facility] Plan and Screening Recommendations Advance Directives - [...] screening necessary Osteoporosis Screening: Your next DEXA [id number] Date Screening Last Performed: _05/2023 Colon Cancer [...] range: negative susannah/ l) Trace Not Available [facility] [address] [facility] [place], [address], 08/11/2024 10:33:38 08/12/19 25 08/11/2024 urina lysis , dipst ick Nitrite (reference rage: negative mg/dl) negati ve Not Available [facility] [address] [facility] [place], [address], 08/11/2024 10:33:38 08/12/19 25 08/11/2024 urina lysis , dipst ick Urobilinogen (reference range: 0.2-1 mg/dl) 0.2 Not Available [facility] [address] [place], [address], 08/11/2024 10:33:38 08/12/19 25 08/11/2024 urina lysis , dipst ick Protein (reference range: negative mg/dl) Negati ve Not Available [facility] [address] [place], [address], 08/11/2024 10:33:38 08/12/19 25 08/11/2024 urina lysis , dipst ick pH (reference range: 5-7) 7.0 Not Available [facility] [address] [place], [address], 08/11/2024 10:33:38 08/12/19 25 08/11/2024 urina lysis , dipst ick Blood (reference range: negative Franco/ l) Small Not Available [facility] [address] [place], [address], 08/11/2024 10:33:38 08/12/19 25 08/11/2024 urina lysis , dipst ick Specific [place] (reference range: 1.005-1.030) 1.015 Not Available [facility] [address] [place], [address], 08/11/2024 10:33:38 08/12/19 25 08/11/2024 urina lysis , dipst ick Ketone (reference range: negative mg/dl) Negati ve Not Available [facility] [address] [place], [address], 08/11/2024 10:33:38 08/12/19 25 08/11/2024 urina lysis , dipst ick Bilirubin (reference range: negative mg/dl) Negati ve Not Available [facility] [address] [place], [address], 08/11/2024 10:33:38 08/12/19 25 08/11/2024 urina lysis , dipst ick Glucose (reference range: negative mg/dl) 100 Not Available [facility] [address] [place], [address], 08/11/2024 10:33:38 08/12/19 25 08/11/2024 urina lysis , dipst ick Appearance Clear Not Available [facility] Internal [facility] [address] [place], [address], 08/11/2024 10:33:38 08/12/19 25 08/11/2024 urina lysis , dipst ick Color Pale Yellow Not Available [facility] [address] [place], [address], 08/11/2024 10:33:38 09/13/19 25 09/12/2024 CBC/D IFF AMBIG UOUS DEFAU LT WBC 7.6 x10e3 /uL 3.4-10 .8 normal Not Available [facility] ([facility]) [address] [place], [address], 09/13/2024 04:09:27 09/13/19 25 09/12/2024 CBC/D IFF AMBIG UOUS DEFAU LT RBC 4.53 x10e6 /uL 3.77-5 .28 normal Not Available [facility] ([facility]) [address] [place], [address], 09/13/2024 04:09:27 09/13/19 25 09/12/2024 CBC/D IFF AMBIG UOUS DEFAU LT hemoglobin 13.1 g/dL 11.1-1 5.9 normal Not Available [facility] ([facility]) [address] [place], [address], 09/13/2024 04:09:27 09/13/19 25 09/12/2024 CBC/D IFF AMBIG UOUS DEFAU LT hematocrit 41.1 % 34.0-4 6.6 normal Not Available [facility] ([facility]) [address] [place], [address], 09/13/2024 04:09:27 09/13/19 25 09/12/2024 CBC/D IFF AMBIG UOUS DEFAU LT MCV 91 fL 79-97 normal Not Available [facility] ([facility]) [address] [facility], [place], [address], 09/13/2024 04:09:27 09/13/19 25 09/12/2024 CBC/D IFF AMBIG UOUS DEFAU LT MCH 28.9 pg 26.6-3 3.0 normal Not Available [facility] ([facility]) [address] [facility], [place], [address], 09/13/2024 04:09:27 09/13/19 25 09/12/2024 CBC/D IFF AMBIG UOUS DEFAU LT MCHC 31.9 g/dL 31.5-3 5.7 normal Not Available [facility] ([facility]) [address] [place], [address], 09/13/2024 04:09:27 09/13/19 25 09/12/2024 CBC/D IFF AMBIG UOUS DEFAU LT RDW 12.4 % 11.7-1 5.4 Not Available [facility] ([facility]) [address] [place], [address], 09/13/2024 04:09:27 09/13/19 25 09/12/2024 CBC/D IFF AMBIG UOUS DEFAU LT platelets 252 x10e3 /uL 150-45 0 normal Not Available [facility] ([facility]) [address] [place], [address], 09/13/2024 04:09:27 09/13/19 25 09/12/2024 CBC/D IFF AMBIG UOUS DEFAU LT neutrophils 68 % not estab. normal Not Available [facility] ([facility]) [address] [facility], [place], [address], 09/13/2024 04:09:27 09/13/19 25 09/12/2024 CBC/D IFF AMBIG UOUS DEFAU LT lymphs 22 % not estab. normal Not Available [facility] ([facility]) [address] [facility], [place], [address], 09/13/2024 04:09:27 09/13/19 25 09/12/2024 CBC/D IFF AMBIG UOUS DEFAU LT monocytes 5 % not estab. normal Not Available [facility] ([facility]) [address] [facility], [place], [address], 09/13/2024 04:09:27 09/13/19 25 09/12/2024 CBC/D IFF AMBIG UOUS DEFAU LT eos 3 % not estab. normal Not Available [facility] ([facility]) [address] [facility], [place], [address], 09/13/2024 04:09:27 09/13/19 25 09/12/2024 CBC/D IFF AMBIG UOUS DEFAU LT basos 1 % not estab. 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 0 normal Not Available [facility] ([facility]) [address] [facility], [place], [address], 09/13/2024 04:09:27 09/13/19 25 09/12/2024 CBC/D IFF AMBIG UOUS DEFAU LT lymphs (absolute) 1.7 x10e3 /uL 0.7-3. 1 normal Not Available [facility] ([facility]) [address] [facility], [place], [address], 09/13/2024 04:09:27 09/13/19 25 09/12/2024 CBC/D IFF AMBIG UOUS DEFAU LT monocytes(ab solute) 0.4 x10e3 /uL 0.1-0. 9 normal Not Available [facility] ([facility]) [address] [facility], [place], [address], 09/13/2024 04:09:27 09/13/19 25 09/12/2024 CBC/D IFF AMBIG UOUS DEFAU LT eos (absolute) 0.2 x10e3 /uL 0.0-0. 4 normal Not Available [facility] ([facility]) [address] [facility], [place], [address], 09/13/2024 04:09:27 09/13/19 25 09/12/2024 CBC/D IFF AMBIG UOUS DEFAU LT baso (absolute) 0.1 x10e3 /uL 0.0-0. 2 normal Not Available [facility] ([facility]) [address] [facility], [place], [address], 09/13/2024 04:09:27 09/13/19 25 09/12/2024 CBC/D IFF AMBIG UOUS DEFAU LT immature granulocytes 1 % not estab. Not Available [facility] ([facility]) [address] [facility], [place], [address], 09/13/2024 04:09:27 09/13/19 25 09/12/2024 CBC/D IFF AMBIG UOUS DEFAU LT immature grans (abs) 0.1 x10e3 /uL 0.0-0. 1 Not Available [facility] ([facility]) [address] [facility], [place], [address], 09/13/2024 04:09:27 09/13/19 25 09/12/2024 CBC/D IFF MARIE ANDERSON LT NRBC MARKETING TECHNOLOGY SPECIALIST Not Available [facility] ([facility]) [address] [facility], [place], [address], 09/13/2024 04:09:27 09/13/19 25 09/12/2024 CBC/D IFF MARIE UOUS DEFAU LT hematology comments: MARKETING TECHNOLOGY SPECIALIST A hand- writt en panel /prof ile [...] ciate your busin ess. Not Available [facility] ([facility]) [address] [facility], [place], [address], 09/13/2024 04:09:27 09/13/19 25 09/13/2024 COMP. METAB OLIC PANEL (14) glucose 80 mg/dL 70-99 normal Not Available [facility] ([facility]) [address] [facility], [place], [address], 09/13/2024 04:09:28 09/13/19 25 09/13/2024 COMP. METAB OLIC PANEL (14) BUN 21 mg/dL 8-27 normal Not Available [facility] ([facility]) [address] [facility], [place], [address], 09/13/2024 04:09:28 09/13/19 25 09/13/2024 COMP. METAB OLIC PANEL (14) creatinine 1.38 mg/dL 0.57-1 .00 above high normal Not Available [facility] ([facility]) [address] [facility] [place], [address], 09/13/2024 04:09:28 09/13/19 25 09/13/2024 COMP. METAB OLIC PANEL (14) eGFR 42 mL/mi n/1.7 3 >59 below low normal Not Available [facility] ([facility]) [address] [facility], [place], [address], 09/13/2024 04:09:28 09/13/19 25 09/13/2024 COMP. METAB OLIC PANEL (14) BUN/creatini ne ratio 15 12-28 normal Not Available [facility] ([facility]) [address] [facility], [place], [address], 09/13/2024 04:09:28 09/13/19 25 09/13/2024 COMP. METAB OLIC PANEL (14) sodium 140 mmol/ L 134-14 4 normal Not Available [facility] ([facility]) [address] [place], [address], 09/13/2024 04:09:28 09/13/19 25 09/13/2024 COMP. METAB OLIC PANEL (14) potassium 4.5 mmol/ L 3.5-5. 2 normal Not Available [facility] ([facility]) [address] [place], [address], 09/13/2024 04:09:28 09/13/19 25 09/13/2024 COMP. METAB OLIC PANEL (14) chloride 100 mmol/ L 96-106 normal Not Available [facility] ([facility]) [address] [place], [address], 09/13/2024 04:09:28 09/13/19 25 09/13/2024 COMP. METAB OLIC PANEL (14) carbon dioxide, total 23 mmol/ L 20-29 normal Not Available [facility] ([facility]) [address] [place] [place], [address], 09/13/2024 04:09:28 09/13/19 25 09/13/2024 COMP. METAB OLIC PANEL (14) calcium 10.6 mg/dL 8.7-10 .3 above high normal Not Available [facility] ([facility]) [address] [place] [place], [address], 09/13/2024 04:09:28 09/13/19 25 09/13/2024 COMP. METAB OLIC PANEL (14) protein, total 7.4 g/dL 6.0-8. 5 normal Not Available [facility] ([facility]) [address] [place] [place], [address], 09/13/2024 04:09:28 09/13/19 25 09/13/2024 COMP. METAB OLIC PANEL (14) albumin 4.6 g/dL 3.9-4. 9 normal Not Available [facility] ([facility]) [address] [place] [place], [address], 09/13/2024 04:09:28 09/13/19 25 09/13/2024 COMP. METAB OLIC PANEL (14) globulin, total 2.8 g/dL 1.5-4. 5 Not Available [facility] ([facility]) [address] [place] [place], [address], 09/13/2024 04:09:28 09/13/19 25 09/13/2024 COMP. METAB OLIC PANEL (14) bilirubin, total 0.3 mg/dL 0.0-1. 2 normal Not Available [facility] ([facility]) [address] [place] [place], [address], 09/13/2024 04:09:28 09/13/19 25 09/13/2024 COMP. METAB OLIC PANEL (14) alkaline phosphatase 83 IU/L 44-121 normal Not Available [facility] ([facility]) [address] [place] [place], [address], 09/13/2024 04:09:28 09/13/19 25 09/13/2024 COMP. METAB OLIC PANEL (14) AST (SGOT) 18 IU/L 0-40 normal Not Available [facility] ([facility]) [address] [place] [place], [address], 09/13/2024 04:09:28 09/13/19 25 09/13/2024 COMP. METAB OLIC PANEL (14) ALT (SGPT) 15 IU/L 0-32 normal Not Available [facility] ([facility]) [address] [place], [address], 09/13/2024 04:09:28 09/13/19 25 09/13/2024 LP cholesterol, total 198 mg/dL 100-19 9 normal Not Available [facility] ([facility]) [address] [place], [address], 09/13/2024 04:09:29 09/13/19 25 09/13/2024 LP triglyceride s 89 mg/dL 0-149 normal Not Available [facility] ([facility]) [address] [place], [address], 09/13/2024 04:09:29 09/13/19 25 09/13/2024 LP HDL cholesterol 79 mg/dL >39 normal Not Available [facility] ([facility]) [address] [place], [address], 09/13/2024 04:09:29 09/13/19 25 09/13/2024 LP VLDL cholesterol jaylen 16 mg/dL 5-40 Not Available [facility] ([facility]) [address] [place], [address], 09/13/2024 04:09:29 09/13/19 25 09/13/2024 LP LDL chol calc ([facility]) 103 mg/dL 0-99 above high normal Not Available [facility] ([facility]) [address] [place], [address], 09/13/2024 04:09:29 09/13/19 25 09/13/2024 LP LDL calc comment: 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 Not Available [facility] ([facility]) [address] [place], [address], 09/13/2024 04:09:32 05/19/19 25 05/18/2024 LDCT, chest , for lung cance r scree den No observ ation record ed. [email or web address] [address], [place], [address], 05/24/2024 16:12:29 06/22/19 25 XR, knee No observ ation record ed. [email or web address] [facility] [place] [address], [place], [address], 06/21/2024 11:02:41 10/19/19 25 10/17/2024 CT, abdom en + pelvi s, w/o contr ast No observ ation record ed. [email or web address] Not Available 10/18 12:33:38 10/19/19 25 10/18/2024 MAMMO , scree den, digit al, bilat eral No observ ation record ed. [email or web address] Not Available 2024 12:18:31 Result Notes None recorded. Problems Name Problem SNOMED Code Status Onset Date Resolution Date Notes Provider Name and Address Organization Details Recorded Time Acute bronchiti s 08856375 Completed Not Available [facility] 3 04:52:11 Chronic pancreati tis 891194451 Active Not Available [employer] 4 21:48:57 Ureteric stone 14120815 Active Not Available [facility] 4 21:48:57 Depressiv e disorder 80908017 Active Not Available [facility] 4 21:48:58 Polyp of colon 75562182 Active Not Available [facility] 4 21:48:58 Smoker 81167214 Active 2016 Not Available [facility] 4 21:48:58 Hiatal hernia 30637508 Active 2017 Not Available [facility] 4 21:48:58 Insomnia 787924581 Active 2019 Not Available [facility] 4 21:48:57 Mitral valve stenosis 76302350 Active 2019 Not Available [facility] 4 21:48:58 Gastroeso phageal reflux disease 898181210 Active 2020 Not Available [facility] 4 21:48:57 Essential hypertens ion 47887750 Active 2020 Not Available [facility] 4 21:48:58 Diverticu litis of colon with perforati on 33544458 Active 2020 Not Available [facility] 4 21:48:58 Heart murmur 74683893 Active 2020 Not Available [facility] 4 21:48:58 Kidney stone 86039147 Active 2020 Not Available [facility] 4 21:48:58 Abdominal pain 55740125 Completed 202111/27/2021 Not Available [facility] 3 04:52:12 Adult health examinati on Active 2021 Not Available [facility] 4 21:48:57 Blood in urine 89865953 Completed 202111/27/2021 Laura bruno[place] [facility] 5 11:57:15 Blood in urine 49770934 Completed 202103/23/2022 Laura Preez null, [place] [facility] 5 11:57:15 Cyst of ovary 85402453 Active 2021 Not Available [facility] 4 21:48:58 Kidney disease 25120902 Active 2021 Not Available [facility] 4 21:48:58 Mitral valve disorder 08080992 Completed 202201/31/2024 JESUS Woo[place] [facility] 4 10:41:32 Acute urinary tract infection 460088531 Completed 202201/31/2024 GISELA Green [address] [place] [address], [address], [address] , [place] [facility] 5 10:33:33 Mitral valve regurgita tion 60983402 Active 2022 Kelly jose RMA null, [place] - [facility] 4 10:41:35 Blood in urine 75139430 Completed 202201/31/2024 Laura Perez null[place] [facility] 5 11:57:15 Coronary artery spasm 77908488 Active 2022 Kelly jose, RMA null[place] [facility] 4 10:41:39 Hypercalc emia 68419765 Active 2023 Kelly jose, RMA null[place] [facility] 4 10:41:59 Hernia of anterior abdominal wall 367323773 Active 2023 Kelly jose, RMA null, [place] - [facility] 4 10:41:52 Blood in urine 93757513 Active 2024 Laura Perez null, [place] [facility] 5 11:57:14 Pain of left knee joint 74150260393 4107 Active 2024 Val Ireland LPN null, [place] [facility] 5 14:37:51 Pain of knee region 3687394869 Active 2024 Radha No CNA null, [place] - [facility] 5 11:02:32 Osteoarth ritis of left knee joint 04829290201 9109 Active 2024 Margi Krishnamurthy PA-C [address], [place], [address] , [facility] 5 11:30:14 Acute urinary tract infection 926281928 Active 2024 GISELA Green [address], [place], [address] , [facility] 5 10:33:32 Lex hematuria 324626629 Active 2024 GISELA Green [address] [facility], [facility] [address], [place], [address] , [facility] [employer] [facility] 5 11:42:05 Microscop ic hematuria 656654955 Active 2024 Brad Berry MD [address] [facility], [facility] [address], [place], [address] , [facility] [employer] [facility] 5 12:26:15 Problem Notes None recorded. Procedures Surgical History Date Name Laterality Status Provider Name and Address Organization Details Recorded Time 12/07/19 Medicare Wellness CPT Code, subsequent completed Zoe Caldwell RN [facility] [employer] [facility] 12/07/2023 09:53:10 12/07/19 Advanced Care Planning completed Zoe Caldwell RN [facility] [employer] [facility] 12/07/2023 12:12:18 01/01/20 other completed Not Available [facility] 04:41:38 09/23/19 other completed Not Available [facility] 04:41:38 08/21/19 operation on oral cavity completed Not Available [facility] 04/15/2022 04:41:38 Breast Surgery completed Not Available [facility] 04/15/2022 04:41:38 other completed Not Available [facility] 02/2022 04:41:38 other completed Not Available [facility] 02/2022 04:41:38 Partial hysterectomy completed Not Available [facility] 04/15/2022 04:41:38 other completed Not Available [facility] 02/2022 04:41:38 Imaging Results None recorded. Procedure Notes None recorded. Medical Equipment None Reported. Allergies Allergen ID Allergen Name Allergen Category Reaction Reaction Severity Criticality Documentation Date Start Date Code Code System Note Provider Name and Address Organization Details Recorded Time 8253 Product containin g penicilli n (product) medicatio n anaphylax is Not available Not available 04/15/2022 74267 8001 SNOMED Not Available [facility] 05:04:23 Medications Name Sig Start [...] Updated DateTime 5 154.94 cm 29.5 kg/m2 62538.4 1 g 98 [degF] 96 % 96 % 79 /min Laura shin [employer] [facility] [employer] [employer] [facility] 5 11:54:23 Date Recorded Body height Body mass index (BMI) Body weight Provider Name and Address Organization Details Last Updated DateTime 06/21/2024 154.94 cm 28.3 kg/m2 50666.86 g Radha No [facility] [employer] [facility] [employer] [facility] 06/21/2024 10:55:31 Date Recorded Body height Body mass index (BMI) Body weight Pain severity - 0-10 verbal numeric rating [Score] - Reported Provider Name and Address Organization Details Last Updated DateTime 07/31/2024 154.94 cm 28.3 kg/m2 35221.86 g 6 Cristel Salmeron, [facility] [employer] [facility] [employer] [facility] 07/31/2024 10:29:02 Date Recorded Body height Body mass index (BMI) Body weight Body temperature Heart rate Oxygen saturation Oxygen saturation in Arterial blood by Pulse oximetry Systolic And Diastolic Provider Name and Address Organization Details Last Updated DateTime 5 154.94 cm 28 kg/m2 15982.6 7 g 97.8 [degF] 96 /min 98 % 98 % 118/79 mm[Hg] Laura Fontana [employer] [facility] [employer] [facility] 5 11:13:29 Date Recorded Body height Body mass index (BMI) Body weight Body temperature Heart rate Oxygen saturation Oxygen saturation in Arterial blood by Pulse oximetry Systolic And Diastolic Provider Name and Address Organization Details Last Updated DateTime 5 154.94 cm 29.3 kg/m2 22783.8 2 g 97.2 [degF] 79 /min 97 % 97 % 120/70 mm[Hg] Kelly hartman [facility] [employer] [facility] [employer] [facility] 5 11:56:01 Social History Question Answer Notes LastModified by Organizat ion Details LastModified Time Tobacco Smoking Status Former Smoker Quit in 09/2019 Not Available [facility] 04/15/2022 04:35:45 Do You Have An Advance Directive? No [email or web address] Information not available 12/07/2023 Are You Blind Or Do You Have Difficulty Seeing? No [email or web address] Information not available 12/07/2023 Is Blood Transfusion Acceptable In An Emergency? Yes [email or web address] Information not available 12/07/2023 What Is Your Level Of Caffeine Consumption? Occasional MIGRATION.76292 [id number] Information not available 04/15/2022 How Much Tobacco Do You Chew? None MIGRATION.08291 46916 Information not available 04/15/2022 Are You Deaf Or Do You Have Serious Difficulty Hearing? No [email or web address] Information not available 12/07/2023 What Type Of Diet Are You Following? REGULAR MIGRATION.38389 49637 Information not available 04/15/2022 Which Illicit Or Recreational Drugs Have You Used? None MIGRATION.12115 70407 Information not available 04/15/2022 What Is The Highest Grade Or Level Of School You Have Completed Or The Highest Degree You Have Received? [id number] [email or web address] Information not available 12/07/2023 How Many Days Of Moderate To Strenuous Exercise, Like A Brisk Walk, Did You Do In The Last 7 Days? 3 [email or web address] Information not available 12/07/2023 On Those Days That You Engage In Moderate To Strenuous Exercise, How Many Minutes, On Average, Do You Exercise? 15 [email or web address] Information not available 12/07/2023 Have There Been Any Changes To Your Family Or Social Situation? No [email or web address] Information not available 12/07/2023 What Is The Fluoride Status Of Your Home? Fluoridated [email or web address] Information not available 12/07/2023 When Did You Quit Smoking? 1-5yearssincelastc igarette MIGRATION.84315 70482 Information not available 04/15/2022 Are There Any Guns Present In Your Home? Yes [email or web address] Information not available 12/07/2023 Do You Use Insect Repellent Routinely? No [email or web address] Information not available 12/07/2023 Where Do You Live? [facility] [email or web address] Information not available 12/07/2023 General Stress Level? Moderate [email or web address] Information not available 12/07/2023 Live Alone Of With Others? With Others [email or web address] Information not available 12/07/2023 Are You Following A Low Salt Diet? Yes [email or web address] Information not available 12/07/2023 Do You Have A Medical Power Of Cane Weigher? Yes States Has Papers At Home [email or web address] Information not available 12/07/2023 What Was The Date Of Your Most Recent Tobacco Screening? 12/07/2023 [email or web address] Information not available 12/07/2023 How Many Children Do You Have? 1 [email or web address] Information not available 12/07/2023 What Is Your Current Pack Years? 30ormorepackyears MIGRATION.42713 92499 Information not available 04/15/2022 Do You Have Any Pets? No [email or web address] Information not available 12/07/2023 What Is Your Relationship Status? MIGRATION.90622 40666 Information not available 04/15/2022 Do You Use Your Seat Belt Or Car Seat Routinely? Yes [email or web address] Information not available 12/07/2023 Are You Sexually Active? Yes [email or web address] Information not available 12/07/2023 Do You Have Smoke And Carbon Monoxide Detectors In Your Home? Yes [email or web address] Information not available 12/07/2023 At What Age Did You Start Smoking Tobacco? 18 MIGRATION.33895 00752 Information not available 04/15/2022 Are You Passively Exposed To Smoke? No [email or web address] Information not available 12/07/2023 Are There Any Smokers In Your House? No [email or web address] Information not available 12/07/2023 How Much Tobacco Do You Smoke? 1 PPD MIGRATION.59299 73740 Information not available 04/15/2022 What Types Of Sporting Activities Do You Participate In? None [email or web address] Information not available 12/07/2023 Do You Use Sunscreen Routinely? Yes MIGRATION.29930 80864 Information not available 04/15/2022 Has Tobacco Cessation Counseling Been Provided? No [email or web address] Information not available 12/07/2023 How Many Years Have You Smoked Tobacco? 45 MIGRATION.57580 65375 Information not available 04/15/2022 Have You Recently Traveled Abroad? No MIGRATION.54218 75591 Information not available 04/15/2022 Do You Have Difficulty Walking Or Climbing Stairs? No [email or web address] Information not available 12/07/2023 Do You Have Any Dietary Restrictions? Yes High Fiber/low Fat [email or web address] Information not available 12/07/2023 Sex: Female Functional Status Question Answer Note LastModified by Organizat ion Details LastModified Time Do you use any illicit or recreational drugs? No [email or web address] Information not available 12/07/2023 Do you or have you ever used any other forms of tobacco or nicotine? No [email or web address] Information not available 12/07/2023 What is your level of alcohol consumption? None MIGRATION.7682486 026 Information not available 04/15/2022 Are you currently employed? No [email or web address] Information not available 12/07/2023 Do you have transportation difficulties? No [email or web address] Information not available 12/07/2023 Are you able to walk independently without assistance or assistive devices? YESWOREST [email or web address] Information not available 12/07/2023 Do you have difficulty doing errands alone? No [email or web address] Information not available 12/07/2023 Are you able to care for yourself independently? Yes [email or web address] Information not available 12/07/2023 What is your occupation? Retired MIGRATION.2896383 026 Information not available 04/15/2022 Do you have difficulty dressing, bathing, grooming, or toileting? No [email or web address] Information not available 12/07/2023 What is your exercise level? Occasional [email or web address] Information not available 12/07/2023 Mental Status Question Answer Note LastModified by Organizat ion Details LastModified Time Do you feel stressed (tense, restless, nervous, or anxious, or unable to sleep at night)? [id number] [email or web address] Information not available 12/07/2023 Do you have difficulty concentrating, remembering or making decisions? No [email or web address] Information no t available 12/07/2023 Family History Relationship Description Onset Age of this Age Resolved Age Notes LastModified by Organization Details LastModified Time Mother Essential hypertension MIGRATION.301 [id number] Not available 04/15/2022 04:41:46 Mother Cerebrovascu lar accident MIGRATION.783 [id number] Not available 04/15/2022 04:41:46 Brother Heart disease MIGRATION.126 [id number] Not available 04/15/2022 04:41:46 Notes:No family history of u rolithiasis. Medical History Condition Response OTHER MODALITIES Y HYPERTENSION Y Gynecological HistoryNo gynecological history recorded. Obstetrics History GPAL:G 0 P 0 0 0 0 Immunizations Vaccine Type Date Status Note Provider Nam e and Address Organization Details Recorded Time SARS-COV-2 (COVID-19) vaccine, UNSPECIFIED 1 completed Not Available [facility] 03/01/2023 21:48:58 SARS-COV-2 (COVID-19) vaccine, UNSPECIFIED 1 completed Not Available [facility] 03/01/2023 21:48:58 Tdap 2 completed Not Available [facility] 03/01/2023 21:48:58 Past Encounters Encounter ID Performer Location Encounter Start Date Encounter Closed Date Diagnosis/Indication Diagnosis SNOMED-CT Code Diagnosis ICD10 Code Diagnosis IMO Codes Diagnosis Note [id number] Brad Berry MD [facility] Internal Med [address] [facility] [place] [address] 08/01/2020 00:00:00 08/01/2020 11:59:29 [id number] MD ADRY [facility]ck[facility] Internal [address] [place] [address] 09/10/2020 00:00:00 09/10/2020 17:11:31 [id number] Richmond Lyons MD [facility] Urology [address] [address] 09/19/2020 00:00:00 09/19/2020 12:43:02 [id number] Richmond Lyons MD [facility] Urology [address] [address] 09/26/2020 00:00:00 09/26/2020 11:34:42 [id number] Brad Berry MD Gely_[facility] Internal Med [address] [place] [address] 11/25/2020 00:00:00 11/25/2020 10:47:30 [id number] Claude lr MD [facility] General Surgery [address] [address] 02/27/2021 00:00:00 02/27/2021 14:09:04 [id number] MD KADEN M[facility] Internal [facility] [address] [place] [address] 03/26/2021 00:00:00 03/26/2021 10:12:03 [id number] MD KADEN Mck[facility] Internal [facility] [address] [place] [address] 07/24/2021 00:00:00 07/24/2021 13:15:17 [id number] Brad Berry MD [facility] Internal Med [address] [facility] [place] [address] 11/27/2021 00:00:00 11/27/2021 10:26:19 [id number] Brad Berry MD [facility] Internal Med [address] [facility] [place] [address] 03/26/2022 00:00:00 03/26/2022 10:12:43 [id number] MD KADEN Mckay_[facility] Internal Med [address] [place] [address] 08/10/2022 11:45:21 08/10/2022 12:33:28 Essential hypertension 04381428 I10 under control Depressive disorder 3548 9007 F32.9 under control with meds Chronic pancreatitis 235 340083 K86.1 stable Gastroesop hageal reflux disease 424485574 K21.9 better with meds Kidney disease 86271473 N08 seeing renal Kidney stone 24772795 N2 0.0 no recurrence , seen urology Insomnia 427126545 G47.0 0 melatonin helps Heart murmur 93724463 R0 1.1 no symptoms, needs echo Cyst of ovary 98658322 N 83.209 see gyne Diverticul itis of colon with perforation 60565597 K57.20 had perforatio n Ex-smoker 4115243 Z87.89 1 LDCT nl 08/06 Blood in urine 99047307 R31.9 no more symptoms Adult heal th examination 386440928 Z00.00 Mammogram- 01/07/2022 Pap at Gyne 01/2020 (Per pt)Dexa at gyne , no reportsCol onoscopy - 12/19/2021 COVID- 05/10/20, 05/31/20, 01/2021 Coronary artery spasm 23 855669 I20.1 no symptoms [id number] Brad Berry MD S[facility] Internal Med [address] [facility] [place] [address] 12/10/2022 11:56:59 12/10/2022 12:48:19 Essential hypertension 23787065 I10 under control Depressive disorder 3548 9007 F32.9 under control with meds Chronic pancreatitis 235 999879 K86.1 stable, seeing GI Gastroesop hageal reflux disease 658926835 K21.9 better with meds Kidney disease 62698227 N08 IMPROVING Kidney stone 97245220 N2 0.0 no recurrence , seen urology Insomnia 947898079 G47.0 0 melatonin helps Heart murmur 85597556 R0 1.1 no symptoms, needs echo Cyst of ovary 89217007 N 83.209 see gyne Diverticul itis of colon with perforation 64227451 K57.20 had perforatio n Ex-smoker 2977387 Z87.89 1 LDCT nl 08/2022 Blood in urine 15798829 R31.9 no more symptoms Adult heal th examination 381133204 Z00.00 Mammogram- 01/07/2022 Pap at Gyne 01/2020 (Per pt), gyne orders itDexa at gyne , no reports, will get from gyneColono scopy - 12/19/2021 Pneumovax needed, wants it next timeFLU- DeclinedCO VID- 05/10/20, 05/31/20, 01/2021 Coronary artery spasm 23 284507 I20.1 meds help Long-term drug therapy 373346354 Z79.899 Depression screening 171 944110 Z13.31 [id number] Brad Berry MD [facility] Internal Med [address] [place] [address] 04/07/2023 10:51:54 04/07/2023 11:36:38 Essential hypertension 20343905 I10 under control Depressive disorder 3548 9007 F32.9 under control with meds Chronic pancreatitis 235 721730 K86.1 stable Gastroesop hageal reflux disease 646078654 K21.9 better with daily meds Kidney disease 86301337 N08 seeing renal and stable GFR Kidney stone 99420398 N2 0.0 no recurrence , seen urology Insomnia 258468526 G47.0 0 melatonin helps Heart murmur 58997577 R0 1.1 no symptoms, needs echo Cyst of ovary 17718575 N 83.209 see gyne Diverticul itis of colon with perforation 54876429 K57.20 had perforatio n Ex-smoker 7822906 Z87.89 1 LDCT nl Blood in urine 95884278 R31.9 no more symptoms Adult [facility] examination 321564501 Z00.00 Mammogram- 01/07/2022 , has an order Pap at [facility] 01/2020 (Per pt) Dexa - was done in the past at [facility], will order Colonoscop y - 12/19/2021 COVID- 05/10/20, 05/31/20, 01/2021 Coronary artery spasm 23 987790 I20.1 no symptoms Hypercalcemia 32933035 E 83.52 Hernia of anterior abdominal wall 825256502 K43.9 S/P REPAIR Postmenopausal state 764 40948 Z78.0 [id number] Brad Berry MD [facility] Internal Med [address] [place] [address] 08/31/2023 10:19:19 08/31/2023 11:06:29 Essential hypertension 15600364 I10 under control Depressive disorder 3548 9007 F32.9 under control with meds Chronic pancreatitis 235 915504 K86.1 labs Gastroesop hageal reflux disease 372944246 K21.9 better with daily meds Kidney disease 34646976 N08 seeing renal Kidney stone 16410513 N2 0.0 no recurrence , seen urology Insomnia 228162467 G47.0 0 melatonin helps Heart murmur 91956102 R0 1.1 no symptoms, needs echo Cyst of ovary 38898441 N 83.209 see [facility] Diverticul itis of colon with perforation 11695622 K57.20 had perforatio n Ex-smoker 7841700 Z87.89 1 LDCT nl Blood in urine 81971348 R31.9 no more symptoms Adult [facility] examination 186107994 Z00.00 Mammogram- 01/07/2022 , getting it in 10/08Pap at [facility] 01/2020 (Per pt)Dexa -06/08Colon oscopy - 12/19/2021 - Scheduled 09/17/23COVI D- 05/10/20, 05/31/20, 01/2021 Coronary artery spasm 23 205641 I20.1 no symptoms Hypercalcemia 23940528 E 83.52 avoid calcium supplement Hernia of anterior abdominal wall 763586320 K43.9 S/P REPAIR [id number] Brad Berry MD [facility] Internal Med [address] [place] [address] 12/07/2023 09:20:40 12/07/2023 10:06:09 Essential hypertension 42074294 I10 under control Depressive disorder 3548 9007 F32.9 under control with meds Chronic pancreatitis 235 627095 K86.1 no symptoms Gastroesop hageal reflux disease 189645723 K21.9 better with daily meds Kidney disease 61232836 N08 GFR stable Kidney stone 73255651 N2 0.0 no recurrence , seen urology Insomnia 361305470 G47.0 0 melatonin helps Heart murmur 57226825 R0 1.1 no symptoms, Cyst of ovary 17487609 N 83.209 see gyne Diverticul itis of colon with perforation 27811251 K57.20 had perforatio n Ex-smoker 9818491 Z87.89 1 LDCT nl Blood in urine 99165265 R31.9 no more symptoms Coronary artery spasm 23 560272 I20.1 no symptoms Hypercalcemia 76914927 E 83.52 avoid calcium supplement Hernia of anterior abdominal wall 895084018 K43.9 S/P REPAIR Adult heal th examination 630410782 Z00.00 [facility]- [facility]Dexa -06/08Colon oscopy - 12/19/2021 - Scheduled 09/17/23FLU- Declined 4COVID- 05/10/20, 05/31/20, 01/2021 Screening for disorder 952101943 Z13.9 [id number] Brad Berry MD [facility] Internal Med [address] [facility] [place] [address] 05/03/2024 11:46:27 05/03/2024 12:23:17 Essential hypertension 93249732 I10 under control Depressive disorder 3548 9007 F32.9 under control with meds Chronic pancreatitis 235 134751 K86.1 no symptoms Gastroesop hageal reflux disease 570554009 K21.9 better with daily meds, symptoms gets worse if does not take it daily Kidney disease 24061186 N08 seeing nephrology Kidney stone 56592602 N2 0.0 no recurrence , seen urology Insomnia 810153076 G47.0 0 melatonin helps Heart murmur 03996945 R0 1.1 no symptoms, Cyst of ovary 44742041 N 83.209 see gyne Diverticul itis of colon with perforation 98639307 K57.20 had perforatio n Ex-smoker 6607680 Z87.89 1 LDCT nl Blood in urine 82499225 R31.9 no more symptoms Coronary artery spasm 23 029669 I20.1 no symptoms Hypercalcemia 12279401 E 83.52 avoid calcium supplement Hernia of anterior abdominal wall 399898117 K43.9 S/P REPAIR Adult heal th examination 671657316 Z00.00 Mammogram- 10/08 from [facility] 01/2020 (Per pt)Dexa -06/08Colon oscopy - 12/19/2021 - Scheduled 09/17/23FLU- Declined 4COVID- 05/10/20, 05/31/20, 01/2021 [id number] Duncan Carter [facility] [address] [place] [address] 06/21/2024 10:36:57 06/21/2024 12:04:42 Pain of knee region 0708560309 M25.562 96140324 [id number] Duncan Carter MD [facility] [address] [facility] [place] [address] 07/31/2024 10:23:24 07/31/2024 10:45:26 Pain of knee region 2529981802 M25.562 07066654 Osteoarthr itis of left knee joint 2172524266 62981 M17.12 38380793 [id number] Brad Berry MD [facility] Internal Med [address] [facility] [place] [address] 08/11/2024 11:01:34 08/11/2024 11:48:55 Acute urinary tract infection 628094384 N39.0 143404 Lex hematuria 38784297 [id number] Gaffney for hematuria at this time. Scan ordered, to follow up in a month with nephrologi . [id number] Brad Berry MD [facility] [address] [place] [address] 09/05/2024 11:11:49 09/05/2024 12:41:21 Essential hypertension 67228858 I10 under control Depressive disorder 3548 9007 F32.9 under control with meds Chronic pancreatitis 235 991367 K86.1 no symptoms Gastroesop hageal reflux disease 095272950 K21.9 better with daily meds, symptoms gets worse if does not take it daily Kidney disease 09050627 N08 seeing nephrology Kidney stone 39474743 N2 0.0 no recurrence , seen urology Insomnia 374380246 G47.0 0 melatonin helps Heart murmur 30702620 R0 1.1 no symptoms, Cyst of ovary 25416671 N 83.209 see gyne Diverticul itis of colon with perforation 54896960 K57.20 had perforatio n Ex-smoker 1135063 Z87.89 1 LDCT nl Blood in urine 03604018 R31.9 no more symptoms Coronary artery spasm 23 230008 I20.1 no symptoms Hypercalcemia 86063326 E 83.52 avoid calcium supplement Hernia of anterior abdominal wall 525371873 K43.9 S/P REPAIR Adult heal th examination 881622084 Z00.00 [facility]- [facility])LDCT- 05/18/2024 Dexa -06/08Colon oscopy - 12/19/2021 - Scheduled 09/17/23FLU- Declined 4COVID- 05/10/20, 05/31/20, 01/2021 Microscopic hematuria 19 1942069 R31.29 [id number] treated for uti Health Concerns Section Related Observation LastModified by Organization Detai ls LastModified Time None Recorded Concern Status LastModified by Organization Details LastModified Time None Recorded Advance Directives Directive N: Payers Insurance Date Sequence Insurance Name Policy Number Policy Martinez Covered Member ID Martinez Member ID Guarantor Name 12/10/2022 1 [facility] [employer] - CHOICE PLUS (POS) [id number] Chava Iraheta [id number] Val Iraheta 06/21/2024 2 MEDICARE-[place] (MEDICARE) Val Iraheta [id number] Val Iraheta 09/02/2024 1 [facility] (MEDICARE REPLACEMENT/A DVANTAGE - PPO) [id number] Val Iraheta [id number] Val Iraheta Notes Date Note Type Note Provider Name and Address Organization Details Recorded Time 05/03/2024 text/html She is here for f/u, taking meds daily Hernando is retiring and she is wanting to know if you can start prescribing her rx Pt thinks she might have twisted her knee. WOULD LIKE TO DO A LDCT! 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 Dr. 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 [address] [facility], [place], [address], [facility] [employer] 08/11/2024 12:06:19 09/05/2024 text/html She is here for f/u, taking meds dailyPT IS NOT FASTING ([facility]) Hypertension- under control with meds,Meds- Losartan [...] , [address] Herndon- Jardiance 25mg dailyOb/manager merchandising- partial hysterectomy, h/o of ovarian cysts, seeing manager merchandising,EX-Smoker- quit 2020 , CT scan 09/06 nl, [...] not on supplement, Brad Berry MD [address] [facility], [facility] [address], [place], [address], [place] [facility] [place] [employer] 09/05/2024 12:30:39 OBGyn Episode No OBEpisode recorded.
--- OUTSIDE RECORDS SUMMARY | 2024-12-26 01:02 | XMS_ITS | Clinical Summary ---
Author Organization [facility] Address [address] [place] [address] Care Team Providers Care Mailing Specialist Name Role Phone Dimitri Gonzalez MD Primary Care Provider [phone] Allergies Active Allergy Reactions Criticality Noted Date [...] (05/20/2022): Added automatically from request for surgery [id number] SOB (shortness of breath) 05/20/2022 Overview (05/20/2022): Added automatically from request for surgery [id number] Encounters Date Type Department Care Team Description 11/18/2024 7:53 AM CDT - 11/18/2024 11:59 PM CDT Hospital Encounter [facility] Imaging and Radiology [id number] [place] [address] Other specified disorders of kidney and ureter [...] on file 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 Gender Identity Not on file Sexual Orientation [...] Final Result from Last 3 Months Insurance [employer] MEDICARE [facility] Address: [facility] [address] [place] [address] [facility] MEDICARE [facility] MED[facility] Address: [address] [address] [place] [address] Advance Directives For more information, please contact: [phone] * Full Code (Latest Code Status on File) Date Activated Date Inactivated Comments 05/21/2022 9:11 AM 05/21/2022 3:08 PM Care Teams Mailing Specialist Relationship Specialty Start Date End Date Dimitri Gonzalez MD PCP - General Internal Medicine 05/20/22
--- OUTSIDE RECORDS SUMMARY | 2024-12-26 01:02 | XMS_ITS | Data Portability ---
Author Organization [facility] Address [address] [place] [address] Care Team Providers Care Geospatial Specialist Name Role Phone BRAD BERRY Primary Care [...] referral right now. WWE due in Dec. [email or web address] Not available 10/28/2020 10:19:27 09/29/2021 09/29/2021 healthy [...] need endometrial sampling. pap of cuff done. Not available 09/29/2021 19:00:14 Plan of Treatment Reminders Order Date Submit Date Provider Last Modified By Organization Details Last Modified Time Details Appointments None recorded. Lab None recorded. Referral None recorded. Procedures None recorded. Surgeries None recorded. Imaging US, pelvis 2020 [email or web address] [place], [place], [address], 12:25:50 US, transvagina l 2020 [facility], [address], [place], [address], 14:24:48 Medication Orders Estrace 0.01% (0.1 mg/gram) vaginal cream 2020 [facility][id number], [address], [place], [place], [id number], 15:36:17 Flagyl 500 mg tablet 2020 [facility][id number], [address] [place], [phone], 15:11:55 Patient TargetsNo targets recorded. Patient InstructionsNo instructions recorded. Reason for Referral None Reported. Results Created Date Observation Date Name Description Value Unit Range Abnormal Flag Note LastModifiedBy Organization Detail LastModifiedTime 09/28/1909/27/2020 VAGIN ITIS/ VAGIN OSIS, DNA PROBE keysha sp. detection, direct probe Negati ve negati ve Not Available [facility] (Lab) [address], [place], [address], 09/28/2020 10:10:41 09/28/19 21 09/27/2020 VAGIN ITIS/ VAGIN OSIS, DNA PROBE gardnerella vag. detection, direct probe Negati ve negati ve Not Available [facility] (Lab) [address], [place], [address], 09/28/2020 10:10:41 09/28/19 21 09/27/2020 VAGIN ITIS/ VAGIN OSIS, DNA PROBE trichomonas vag. detection, direct probe Negati ve negati ve Not Available [facility] (Lab) [address], [place], [address], 09/28/2020 10:10:41 09/30/19 22 09/29/2021 IMAGE GUIDE [...] as clini anne wells nted. Not Available [facility] [address] [place], [address], 10/03/2021 12:39:44 10/08/1910/07/2020 US, pelvi s No observ ation record ed. [email or web address] [place] [address], [place], [address], 10/07/2020 14:24:39 10/08/19 21 10/07/2020 US, trans vagin al No observ ation record ed. [email or web address] [place] [address], [place], [address], 10/07/2020 14:24:48 10/08/19 21 10/07/2020 US, pelvi s No observ ation record ed. cindy Lowe [address], [place], [address], 10/09/2020 14:43:59 01/08/20 22 01/07/2022 MAMMO , scree den, bilat eral No observ ation record ed. [email or web address] [facility] [address], [place], [address], 09/10/2022 12:49:13 01/08/2001/07/2022 MAMMO , scree den, bilat eral No observ ation record ed. [email or web address] [facility] [address], [place], [address], 09/10/2022 12:49:14 Result Notes None recorded. Problems Name Problem SNOMED Code Status Onset Date Resolution Date Notes Provider Name and Address Organization Details Recorded Time History of hysterec diana [id number] Completed 198409/27/2020 CHASE, ovaries in, done for endo Nolvia bruno [facility] 09:50:04 Screenin g for malignan t neoplasm of cervix Completed 201009/27/2020 Pap Smear;Pr actice ID: 0001 Nolvia bruno [facility] 09:50:14 Tobacco dependen ce syndrome 75021619 Completed 201409/27/2020 Tobacco abuse;Re corded Elsewher e: No Locat ion: [facility] S ource: EHR Driver jean: N Practi ce ID: 0001 Alistair lable Time: 01:00:00 PM Nolvia bruno [facility] 09:50:24 Adult health examinat ion Completed 201409/27/2020 ROUTINE MEDICAL EXAM;Rec orded Elsewher e: No Locat ion: [facility] S ource: EHR Driver jean: N Merlineti ce ID: 0001 Alistair lable Time: 01:00:00 PM Nolvia Power damion, [facility] 09:49:46 Microsco pic hematuri a [id number] Completed 201409/27/2020 MICROSCO PIC HEMATURI A;Record ed Elsewher e: No Locat ion: [facility] S ource: EHR [facility] jean: N Merlineti ce ID: 0001 Alistair lable Time: 01:00:00 PM Nolvia Power [facility], [facility] 09:50:10 Speciali zed medical examinat ion Completed 201409/27/2020 Gynecolo gical Examinat ion;Marty rded Elsewher e: No Locat ion: [facility] S ource: EHR [facility] jean: N Merlineti ce ID: 0001 Alistair lable Time: 01:00:00 PM Nolvia Power damion, [facility] 09:50:22 Disorder of bone and articula r cartilag e [id number] Completed 201409/27/2020 Osteopen ia;Recor ded Elsewher e: No Locat ion: [facility] S ource: EHR Driver jean: N Merlineti ce ID: 0001 Alistair lable Time: 09:30:00 AM Nolvia Power damion [facility] 1 09:49:52 Malaise and fatigue 661590130 Completed 201409/27/2020 Fatigue; Recorded Elsewher e: No Locat ion: [facility] S ource: EHR [facility] jean: N Merlineti ce ID: 0001 Alistair lable Time: 09:30:00 AM Nolvia Power damion [facility] 1 09:50:08 Screenin g for malignan t neoplasm of rectum Completed 201609/27/2020 Screenin g for malignan t neoplasm s of the rectum;R ecorded Elsewher e: No Locat ion: [facility] S ource: EHR Driver jean: N Practi ce ID: 0001 Alistair lable Time: 10:30:00 AM Nolvia Power [facility], [facility] 09:50:[address] Concept Completed 201709/27/2020 Encntr for general adult medical exam w/o abnormal findings ;Recorde d Elsewher e: No Locat ion: [facility] S ource: EHR Driver jean: N Practi ce ID: 0001 Alistair lable Time: 01:45:00 PM Nolvia Power [facility] 09:50:18 Human papillom avirus deoxyrib onucleic acid detected , high risk on cervical specimen [id number] Completed 201709/27/2020 Cervical high risk HPV DNA test positive ;Recorde d Elsewher e: No Locat ion: [facility] S ource: EHR Driver jean: N Practi ce ID: 0001 Alistair lable Time: 01:45:00 PM Nolvia Power [facility] 09:50:06 Evaluati on finding Completed 201709/27/2020 Abnormal Pap smear of cervix;R ecorded Elsewher e: No Locat ion: [facility] S ource: EHR Driver jean: N Practi ce ID: 0001 Alistair lable Time: 01:45:00 PM Nolvia Power [facility] 09:49:59 Evaluati on finding Completed 201709/27/2020 Oth abn and inconclu sive findings on dx imaging of breast;R ecorded Elsewher e: No Locat ion: [facility] S ource: EHR Driver jean: N Practi ce ID: 0001 Alistair lable Time: 09:59:34 AM Nolvia bruno [facility] 09:49:[address] Concept Completed 201809/27/2020 Encntr for transportation analyst exam (general ) (routine ) w/o abn findings ;Recorde d Elsewher e: No Locat ion: [facility] S ource: EHR Driver jean: N Merlineti ce ID: 0001 Alistair lable Time: 01:00:00 PM Nolvia Power [facility] 09:50:20 Bronchit is [id number] Completed 201809/27/2020 Bronchit is;Recor ded Elsewher e: No Locat ion: [facility] S ource: EHR Driver jean: N Hang ce ID: 0001 Alistair lable Time: 01:00:00 PM Nolvia bruno [facility] 09:49:48 Osteopen ia 026577584 Completed 201909/27/2020 cannot take calcium Nolvia Power [facility] 09:50:12 Former heavy tobacco smoker [id number] 4100 Completed 201909/27/2020 Nolvia Power [facility] 09:50:01 Divertic ulitis 738792358 Completed 201909/27/2020 ostomy and reversal 2019 Nolvia Power [facility], [facility] 09:49:54 [facility] hyperten bhavani 80694785 Completed 201909/27/2020 Nolvia Power [facility] 09:49:56 Problem Notes None recorded. Procedures Surgical History Date Name Laterality Status Provider Name and Address Organization Details Recorded Time 02/15/19 21 Date of Last Mammogram completed Maryse Pappas [facility] 09/29/2021 18:02:47 02/15/19 21 Most Recent Bone Density completed Maryse Pappas [facility] 09/29/2021 18:03:11 09/16/19 20 completed Christin Parker MD [address], [place], [address], [facility] 12/25/2019 11:34:22 09/16/19 20 Colonoscopy completed Nolvia Power [facility] 09/26/2020 16:27:02 02/15/19 20 Date of Last Colonoscopy [facility] 09/29/2021 18:03:05 06/15/19 19 Date of Last Pap Smear completed [facility]se [facility] 09/29/2021 14:49:54 02/15/19 10 colonoscopy completed Maryse [facility] 12/25/2019 10:55:55 02/15/18 85 total abdominal hysterectomy completed Christin Parker MD [address], [place], [address], [facility] 12/25/2019 11:35:58 Imaging Results None recorded. Procedure Notes None recorded. Medical Equipment None Reported. Allergies Allergen ID Allergen Name Allergen Category Reaction Reaction Severity Criticality Documentation Date Start Date Code Code System Note Provider Name and Address Organization Details Recorded Time 2627 Product containin g penicilli n (product) medicatio n Not available Not available Not available 12/22/2019 25499 8001 SNOMED Maryse bruno, [facility] 0 17:12:49 Medications Name Sig Start [...] Prescrib ed Elsewher e: No Locat ion: [facility] M odify By: james alfred DateTime : 06/15/19 19 01:00:00 PM Not Available Not Available Not Available Aspirin Childrens 81 mg chewable tablet chew 1 tablet by oral route every day 10/02 completed Prescrib ed Elsewher e: Yes Loca tion: [facility] M odify By: amanda vargas DateTime [...] Elsewher e: Yes Loca tion: Levi laura [facility] odify By: britt gutierrez DateTime : 12/16/19 01:45:00 PM Not Available Not Available Not Available Wellbutri n XL 300 mg 24 hr tablet, extended release take 1 tablet by oral route every day 12/15 completed Prescrib ed Elsewher e: No Locat ion: Levi laura [facility] odify By: britt gutierrez DateTime : [...] Elsewher e: Yes Loca tion: Levi laura [facility] odify By: britt gutierrez DateTime : 12/16/19 01:45:00 PM Not Available Not Available Not Available Zenpep 09/27 completed Not Available Not Available Not Available Centrum Silver Ultra Men's 300 mcg-60 mcg-600 mcg-300 mcg tablet 10/02 completed Prescrib ed Elsewher e: Yes Loca tion: [facility] include [facility] beds at the [facility] odify By: amanda vargas DateTime : 03/08/19 01:00:00 PM Not Available Not Available Not Available Qbrelis 1 mg/mL oral solution take 10 millilit er by oral route every day 10/02 completed Prescrib ed Elsewher e: Yes Loca tion: [facility] odify By: britt gutierrez DateTime : 12/16/19 [...] Prescrib ed Elsewher e: Yes Loca tion: [facility] odify By: britt gutierrez DateTime : 12/16/19 01:45:00 PM Not Available Not Available Not Available ID NOW COVID-19 Test Kit USE 1 KIT TODAY DIRECTED 09/29 completed Not Available Not Available Not Available Vitals Date Recorded Body height Body mass index (BMI) Body weight Systolic And Diastolic Provider Name and Address Organization Details Last Updated DateTime 09/27/2020 154.94 cm 28.5 kg/m2 53461.45 g 131/72 mm[Hg] Nolvia Power [facility] 09/27/2020 09:49:06 Date Recorded Body height Body mass index (BMI) Body weight Systolic And Diastolic Systolic And Diastolic Provider Name and Address Organization Details Last Updated DateTime 09/29/2021 154.94 cm 28.5 kg/m2 15069.45 g 151/75 mm[Hg] 148/78 mm[Hg] Maryse Pappas [facility] 18:02:21 Date Recorded Body height Body mass index (BMI) Body weight Systolic And Diastolic Systolic And Diastolic Provider Name and Address Organization Details Last Updated DateTime 10/02/2020 154.94 cm 28.5 kg/m2 85262.45 g 154/78 mm[Hg] 160/82 mm[Hg] [facility] 15:11:28 Date Recorded Body height Body mass index (BMI) Body weight Systolic And Diastolic Provider Name and Address Organization Details Last Updated DateTime 10/25/2020 154.94 cm 28.7 kg/m2 85676.04 g 126/67 mm[Hg] [facility] 10/25/2020 11:53:54 Social History Question Answer Notes LastModified by Organizat ion Details LastModified Time Tobacco Smoking Status Former Smoker quit 09/2019 [facility] 09/29/2021 17:52:59 Do You Have An Advance Directive? No [email or web address] Information not available 09/27/2020 Are You Blind Or Do You Have Difficulty Seeing? No [email or web address] Information not available 09/27/2020 What Is Your Level Of Caffeine Consumption? Moderate [email or web address] Information not available 09/27/2020 In The 14 Days Before Symptom Onset, Have You Had Close Contact With A Laboratory-confir med COVID-19 While That Case Was Ill? No [email or web address] Information not available 09/27/2020 In The 14 Days Before Symptom Onset, Have You Had Close Contact With A Person Who Is Under Investigation For COVID-19 While That Person Was Ill? No [email or web address] Information not available 09/27/2020 Have You Been To An Area Known To Be High Risk For COVID-19? No [email or web address] Information not available 09/27/2020 Are You Deaf Or Do You Have Serious Difficulty Hearing? No [email or web address] Information not available 09/27/2020 What Type Of Diet Are You Following? REGULAR [email or web address] Information not available 09/27/2020 What Is The Highest Grade Or Level Of School You Have Completed Or The Highest Degree You Have Received? [id number] [email or web address] Information not available 09/27/2020 Are There Any Guns Present In Your Home? No [email or web address] Information not available 09/27/2020 Do You Use Protection During Sex? No Information not available 09/27/2020 Do You Use Your Seat Belt Or Car Seat Routinely? Yes [email or web address] Information not available 09/27/2020 Do You Have Smoke And Carbon Monoxide Detectors In Your Home? Yes [email or web address] Information not available 09/27/2020 At What Age Did You Start Smoking Tobacco? 18 [email or web address] Information not available 09/27/2020 How Much Tobacco Do You Smoke? No [email or web address] Information not available 09/27/2020 Do You Use Sunscreen Routinely? Yes Information not available 09/27/2020 Has Tobacco Cessation Counseling Been Provided? No Information not available 09/29/2021 Have You Used IV Drugs? No [email or web address] Information not available 09/27/2020 Sex: Unknown Functional Status Question Answer Note LastModified by Organizat ion Details LastModified Time Do you use any illicit or recreational drugs? No Information not available 09/27/2020 Do you or have you ever used any other forms of tobacco or nicotine? No Information not available 09/29/2021 What is your level of alcohol consumption? Occasional [email or web address] Information not available 09/27/2020 Are you able to walk independently without assistance or assistive devices? YESWOREST [email or web address] Information not available 09/27/2020 What is your occupation? Retired [email or web address] Information not available 09/27/2020 What is your exercise level? Occasional [email or web address] Information not available 09/27/2020 Mental Status Question Answer Note LastModified by Organization D etails LastModified Time Do you feel stressed (tense, restless, nervous, or anxious, or unable to sleep at night)? [id number] [email or web address] Information not available 09/27/2020 Family History Relationship Description Onset Age of this Age Resolved Age Notes LastModified by Organization Details LastModified Time Mother Hypertensive disorder [email or web address] Not available 2019 17:12:39 Notes:Mother: Hypertension Medical History Condition Response Ovarian Cancer N Diabetes N Breast Cancer N History of abnormal pap Y Cancer N Urinary Tract Infection Y Thyroid Problems N Stroke N Abuse/Domestic Violence N GI Problems Y Neurologic/Epilepsy N Breast [...] ICD10 Code Diagnosis IMO Codes Diagnosis Note [id number] Christin Parker MD [place] [address],[place] [address] 12/25/2019 10:45:43 12/25/2019 14:34:38 Gynecologic examination 73793689 Z01.419 Blood in urine 38325736 R31.9 [id number] Jacqueline Vicente [facility] [address] [place] [address] 07/09/2020 14:07:19 07/09/2020 15:54:23 Urinary tract infectious disease 65069935 N39.0 82526 Charline Marrero [facility] [address] [place] [address] 09/27/2020 09:25:11 09/27/2020 11:16:25 Vaginitis 96706491 N76.0 [id number] Christin Parker MD [place] [address] [place] [address] 10/02/2020 14:57:59 10/02/2020 15:37:14 Atrophic vaginitis 50052149 N95.2 Lower abdominal pain 545 29869 R10.30 Pain in pelvis 00231196 R10.2 [id number] Christin Parker MD [place] [address],[place] [address] 10/07/2020 11:06:05 10/07/2020 11:50:38 Pain in pelvis 95150833 R10.2 [id number] Christin Parker MD [place] [address],[facility] [place] [address] 10/25/2020 11:36:40 10/27/2020 23:11:13 Right flank pain 510380837 R10.9 Atrophic vaginitis 59760 000 N95.2 [id number] Christin Parker MD [place] [address],[place] [address] 09/29/2021 17:51:40 09/30/2021 16:26:34 Gynecologic examination 59846258 Z01.419 Z11.51 Postcoital bleeding 4888 0000 N93.0 Health Concerns Section Related Observation LastModified by Organization Detai ls LastModified Time None Recorded Concern Status LastModified by Organization Details LastModified Time None Recorded Advance Directives Directive N: Payers Insurance Date Sequence Insurance Name Policy Number Policy Martinez Covered Member ID Martinez Member ID Guarantor Name 09/26/2021 1 [facility] [id number] Chava Iraheta [id number] Michele Iraheta Notes Date Note Type Note Provider Name and Address Organization Details Recorded Time 09/27/2020 text/html ROS as noted in the HPI cramping in low abd, discharge, pain with intercourse, saw urology and pcp, ct negative, no kidney stones, cystoscopy negative Charline Marrero CNM [address], [place], [address], [facility] 09/27/2020 11:10:37 10/02/2020 text/html Michele is here for intermittent but persistent bloody vaginal discharge. Worse after intercourse. Has had normal urine culture and vaginitis panel. s/p hyst. ovaries in. Also complains of BLQ pain and tenderness after sex. history of bowel surgeries. Christin Parkre MD [address], [place], [address], [facility] 10/02/2020 15:36:24 10/25/2020 text/html Here for [...] us. Christin Parker MD [address], [place], [address], [facility] 10/28/2020 10:20:04 09/29/2021 text/html Patient is [...] concerns- Christin Parker MD [address], [place], [address], [facility] 09/29/2021 19:01:03 OBGyn Episode Ob Episode Information Episode Created Date Number of Fetuses Patient Bloodtype Patient rh Status Prepregnancy Weight lbs Domestic Partner Domestic Partner Phone Father Name Tavern Operator Status 09/28/19 21 1 CLOSED Fetus Data First Name Last Name Admitted to NICU Weight (g) Sex Living Outcome Pediatric Complications Fetus ID Race Codes Race Delivery Type 3231.84 3 M Full Term [id number] Vaginal Delivery Rich Calculation Initial Rich Date [...]
[2024-12-26] MEDS: LACTATED RINGERS 1,000 ML 30 ML IV CONT (06:45)
--- NOTE | 2024-12-26 07:30 | WPDHPUPDATE1 ---
History and Physical Update Update Date/Time: 12/26/24 07:30 History and Physical has been reviewed, including an updated exam of the patient. There are NO changes in the patient's condition. Risks, benefits, and alternatives have been discussed and questions answered. Patient agrees to proceed with procedure.
--- NOTE | 2024-12-26 07:30 | PM.HPGS ---
History of Present Illness History of Present Illness Consent: Risks, benefits, and alternatives have been discussed and questions answered. Patient agrees to proceed with procedure. Chief complaint: right kidney stone Narrative: Val Iraheta is a 69 year old female with PMHx of HTN, mitral valve regurgitation who was found on recent hematuria workup to have a large 1.5 cm right renal stone in addition to punctate left renal stones. She had undergone discussion of management options and had elected to proceed with a staged endoscopic approach, first with stent placement followed by ureteroscopy with CVAC in the upcoming future. She denies any changes past her baseline and is ready for the procedure today. Review of Systems Review of Systems: Constitutional: No fevers or chills Eyes: No changes in vision HENT: No hearing loss Cardiovascular: No chest pain or palpitations Respiratory: No shortness of breath, cough, wheezing GI: No abdominal pain, nausea, or vomiting : No dysuria or difficulty urinating Heme: No easy bruising or bleeding Skin: No rash or itching MSK: No myalgias or joint pain Psych: No hallucinations Neuro: No lateralized numbness or tingling PMFSH Past Medical History Medical History Adnexal mass Hypertension Moderate mitral regurgitation Ovarian cyst Screening mammogram, encounter for Vaginal discharge Surgical History Surgical History H/O gynecological procedure laparoscopy w.oopherectomy H/O: hysterectomy History of colon resection History of reversal of ileostomy Hx of hernia repair Lengthy adhesiolysis, repair multiple ventral hernias totaling 17.5 cm, bilateral transversus abdominis myofascial flap advancement, 5 cm on the left, 4 cm on the right. Repair injury to sigmoid colon on 01/06/23 Family History Family History Mother Hypertension Cerebrovascular accident Grandparent Hypertension Heart disease Sibling Acute myocardial infarction Social History Social History Smoking packs per day: 1 Smoking cigarettes per day: 20.0 Years smoked: 45 Smoking pack-years: 45.00 Smoking status: Former smoker Tobacco type: cigarettes Second hand tobacco smoke exposure: No Smoking end date: 02/15/19 Additional smoking assessment comments: denies nicotine Alcohol intake: never Alcohol use details: SOCIALLY IN THE PAST Substance use: never Substance use type: does not use Lack of Transportation: No Lack of Food: Never True Current Housing: I Have Housing Concerned About Future Housing: No Difficulty Paying Gas/Electric Bills: No Difficulty Paying for Meds: No Currently Unemployed: No Education: High School Diploma/GED Difficulty w/ Childcare or Family Care: No Living arrangements: with family Additional living arrangements comments: Occupation/Education: retired Gender identity (if verbalized by the patient): Female Sexual Orientation (if Verbalized by the Patient): Straight or Heterosexual Spiritual care concerns: No Meds Home Medications and Allergies Home Medications ?Medication ?Instructions ?Recorded ?Confirmed ?Type Adults Multivitamin 1 tab-cap PO DAILY 06/03/22 12/20/24 History cholecalciferol (vitamin D3) 10 10 mcg PO DAILY 06/03/22 12/20/24 History mcg (400 unit) capsule (Vitamin D3) escitalopram oxalate 10 mg tablet 10 mg PO HS 08/04/22 12/20/24 History ascorbic acid (vitamin C) 1,000 mg 1 g PO DAILY 12/28/22 12/20/24 History tablet nxjvjc-mzwnucqo-duxqhkf(pork)5,000-17,000-24,000 1 cap PO DAILY 12/28/22 12/20/24 History unit capsule, del rel (Zenpep) melatonin 10 mg tablet 10 mg PO HS PRN Insomnia 12/28/22 12/20/24 History pantoprazole 40 mg tablet,delayed 40 mg PO DAILY 12/28/22 12/20/24 History release clobetasol 0.05 % topical ointment 1 applic topical QHS #30 grams 07/11/24 12/20/24 Rx amlodipine 5 mg tablet 5 mg PO DAILY 12/20/24 12/20/24 History empagliflozin 25 mg tablet 25 mg PO DAILY 12/20/24 12/20/24 History (Jardiance) isosorbide mononitrate 60 mg 60 mg PO DAILY 12/20/24 12/20/24 History tablet,extended release 24 hr metformin 500 mg tablet,extended 500 mg PO .am 12/20/24 12/20/24 History release 24 hr olmesartan 40 mg tablet 20 mg PO DAILY 12/20/24 12/20/24 History Allergies Allergy/AdvReac Type Severity Reaction Status Date / Time Penicillins Allergy Severe Anaphylactic Verified 12/26/24 06:17 Shock Exam Narrative: General: Alert, no acute distress Head: Normocephalic, atraumatic Eyes: Extraocular movements intact Neck: No JVD, trachea midline Respiratory: Symmetric chest rise, nonlabored breathing on room air CV: Normal rate, adequate peripheral perfusion Abdomen: Soft, nontender, nondistended Extremities: No peripheral edema, no cyanosis Neuro: No focal deficits Psych: Answers questions appropriately, appropriate mood Assessment and Plan Assessment and plan (1) Nephrolithiasis: Code(s): N20.0 - Calculus of kidney Status: Acute Assessment and Plan: 69yF with a large 1.5 cm right renal stone - To OR for cystoscopy, right retrograde pyelogram, right ureteral stent placement - Risks, benefits, alternatives reviewed. The patient is amenable to proceed - Anticipate discharge home thereafter - Urology will arrange for patient's follow-up surgery for definitive stone management with CVAC in the upcoming future
--- NOTE | 2024-12-26 07:55 | WPDANESEPPF ---
Anes - Initial Pre Proc Eval Procedure: Operation Date: 12/26/24 08:30 Proposed Procedures p Cystoscopy, Right Retrograde Pyelogram, Right Ureteral Stent Placement - Bladimir Delacruz MD Date/Time: 12/26/24 07:55 Surgeon: Bladimir Delacruz MD Pre Op Diagnosis: right kidney stone Patient Data Age: 69 Gender: F Height: 1.55 m Weight: 67.8 kg Last Vital Signs Temp 37.2 C 12/26/24 07:48 Pulse 70 12/26/24 07:48 Resp 16 12/26/24 07:48 BP 119/65 12/26/24 07:48 Pulse Ox 99 12/26/24 07:48 O2 Del Method Room Air 12/26/24 07:48 Allergies Allergy/AdvReac Type Severity Reaction Status Date / Time Penicillins Allergy Severe Anaphylactic Verified 12/26/24 07:39 Shock Home Medications ?Medication ?Instructions ?Recorded ?Confirmed ?Type Adults Multivitamin 1 tab-cap PO DAILY 06/03/22 12/26/24 History cholecalciferol (vitamin D3) 10 10 mcg PO DAILY 06/03/22 12/26/24 History mcg (400 unit) capsule (Vitamin D3) escitalopram oxalate 10 mg tablet 10 mg PO HS 08/04/22 12/26/24 History ascorbic acid (vitamin C) 1,000 mg 1 g PO DAILY 12/28/22 12/26/24 History tablet wvstwj-pgfpynms-oumruna(pork)5,000-17,000-24,000 1 cap PO DAILY 12/28/22 12/26/24 History unit capsule, del rel (Zenpep) melatonin 10 mg tablet 10 mg PO HS PRN Insomnia 12/28/22 12/20/24 History pantoprazole 40 mg tablet,delayed 40 mg PO DAILY 12/28/22 12/26/24 History release clobetasol 0.05 % topical ointment 1 applic topical QHS #30 grams 07/11/24 12/20/24 Rx amlodipine 5 mg tablet 5 mg PO DAILY 12/20/24 12/26/24 History empagliflozin 25 mg tablet 25 mg PO DAILY 12/20/24 12/26/24 History (Jardiance) isosorbide mononitrate 60 mg 60 mg PO DAILY 12/20/24 12/26/24 History tablet,extended release 24 hr metformin 500 mg tablet,extended 500 mg PO .am 12/20/24 12/26/24 History release 24 hr olmesartan 40 mg tablet 20 mg PO DAILY 12/20/24 12/26/24 History Patient hx anesthesia problems: none Family hx anesthesia problems: none Results Review: All pre-operative results and documents have been reviewed as part of the pre-operative evaluation. [facility] Past Medical History Medical History Adnexal mass Hypertension Moderate mitral regurgitation Ovarian cyst Screening mammogram, encounter for Vaginal discharge Surgical History Surgical History H/O gynecological procedure laparoscopy w.oopherectomy H/O: hysterectomy History of colon resection History of reversal of ileostomy Hx of hernia repair Lengthy adhesiolysis, repair multiple ventral hernias totaling 17.5 cm, bilateral transversus abdominis myofascial flap advancement, 5 cm on the left, 4 cm on the right. Repair injury to sigmoid colon on 01/06/23 Family History Family History Mother Hypertension Cerebrovascular accident Grandparent Hypertension Heart disease Sibling Acute myocardial infarction Social History Social History Smoking packs per day: 1 Smoking cigarettes per day: 20.0 Years smoked: 45 Smoking pack-years: 45.00 Smoking status: Former smoker Tobacco type: cigarettes Second hand tobacco smoke exposure: No Smoking end date: 02/15/19 Additional smoking assessment comments: denies nicotine Alcohol intake: never Alcohol use details: SOCIALLY IN THE PAST Substance use: never Substance use type: does not use Lack of Transportation: No Lack of Food: Never True Current Housing: I Have Housing Concerned About Future Housing: No Difficulty Paying Gas/Electric Bills: No Difficulty Paying for Meds: No Currently Unemployed: No Education: High School Diploma/GED Difficulty w/ Childcare or Family Care: No Living arrangements: with family Additional living arrangements comments: Occupation/Education: retired Gender identity (if verbalized by the patient): Female Sexual Orientation (if Verbalized by the Patient): Straight or Heterosexual Spiritual care concerns: No Anes - Eval Final PreProcedure Day of Procedure 12/26/24 07:55 Patient weight: overweight Heart: regular rate and rhythm Lungs: clear to auscultation Airway: Mallampati scale class III Neurological: alert and oriented Last oral intake: >/= 8 hours ASA classification: III Emergent: no Anesthetic plan: proceed Anesthesia type and monitoring: general LMA and standard monitoring Results Review: All pre-operative results and documents have been reviewed as part of the pre-operative evaluation. Informed Consent: The patient's anesthetic plan and its attendant risks and benefits were discussed with the patient/family/POA. Questions were solicited and answers provided to the satisfaction of the patient/family/POA.
[2024-12-26] MEDS: ceFAZolin 2 GM in SODIUM CHLORIDE 0.9% IV 50 ML 100 ML IVPB (08:34)
--- NOTE | 2024-12-26 09:06 | W.PM.PROC2 ---
Procedure Note - Detailed Date of Procedure 12/26/24 Pre-op Diagnosis right kidney stone Post-op Diagnosis Same Procedure Performed 1. Cystoscopy 2. Right retrograde pyelogram with intraoperative interpretation 3. Right ureteral stent placement Surgeon Bladimir Delacruz MD Anesthesia General Description of Procedure After informed consent was obtained, the patient was brought back to the operating theatre and placed in the supine position on the operating table. Pre-operative antibiotics were confirmed to have been administered. Anesthesia was induced. The patient was moved into the dorsal lithotomy position and prepped and draped in the standard sterile fashion for an endoscopic case. All pressure points were padded. Bilateral sequential compression devices were on and noted to be functioning. A formal timeout was performed with Dr. Delacruz in attendance to confirm the correct patient, site/laterality, and procedure and all were in agreement to proceed. To begin with, I atraumatically advanced a lubricated 22-Namibian rigid cystoscope transurethrally into the patient's bladder. Pancystoscopy was performed with findings as noted above. Attention was then turned to the right ureteral orifice, which was gently cannulated with a Sensor wire which was advanced up to the level of the right distal ureter under fluoroscopy. Over top of the wire, a 5-Namibian open ended catheter was advanced to the level of the distal ureter. The wire was removed keeping the open-ended catheter in place and a right retrograde pyelogram was performed using a 50:50 mixture of saline and contrast with findings as noted above. The wire was then replaced through the open-ended catheter and was advanced up to the level of the right kidney under fluoroscopy. Afterwards, the open-ended catheter was removed in Seldinger fashion, leaving the wire in place. Over top of the wire, a 6-Namibian x 24 cm JJ stent was advanced and the pusher was used to deploy the stent in place, confirming a good proximal curl in the right kidney under fluoroscopy and a good distal curl in the bladder under both fluoroscopic and direct cystoscopic vision. The patient's bladder was then emptied and the cystoscope was removed, essentially concluding the case. At the conclusion of the case all sponge, instrument, and sharp counts were correct x 2. The patient was then awoken from anesthesia and taken to the recovery room in stable condition. The patient tolerated the procedure well and there were no immediate complications noted.
== END 2024-12-26 10:10 | disposition home or self-care (01) ==
PROVIDERS: PCP Internal Medicine; Visit Provider Urology
PROC: (CPT 52352; principal; 2024-12-26 08:30)
DX: N20.0 Calculus of kidney (principal); Z79.84 Long term (current) use of oral hypoglycemic drugs; Z87.891 Personal history of nicotine dependence
CPT/HCPCS: 52332; 74420; 82948; J0690; C1758; C1769; C2617; J2003; J2405; J2704; J3010; J7120; Q9966

== ENCOUNTER 2025-01-16 03:22 | Day surgery (SDC) | payer MEDICARE, SELFPAY ==
--- NOTE | 2025-01-01 16:04 | PC.NURSE ---
[facility] has started construction of its new state of the art ER which will open Spring 2026. With this, we anticipate parking may be a challenge for some our surgical patients and families. Parking spaces are limited but are available for all Surgical, obstetrics, and ER patients sharing this lot. If you arrive and find you are having a hard time finding a parking space, please note that we understand the challenges, please drive around the hospital and park near Hospital Entrance 1. When you enter this entrance, you can ask a volunteer to direct or take you back to the surgical waiting area to check in. We appreciate everyone?s understanding of these expected challenges while we build for your future. Report to the Outpatient Waiting Room, entrance under the green pavilion located off [address], at time ___0600am____ on date __01/16/25 . Planned Procedure Time: ___0730am .? Time changes happen often and if your time is changed the preop area will call you the afternoon before. - You and your visitor will be asked to self-screen and do not enter if you have any COVID symptoms. Please call surgeon if you need to reschedule. - A mask is optional within the hospital at this time. Patients may have clear liquids (water, carbonated beverages, clear teas, apple juice) until 3 hours prior to surgery with a maximum of 20 ounces. - No food from midnight until time of surgery and no smoking, or chewing tobacco (or any form of nicotine). No chewing gum, candy or mints. (0430am) - Take only the following medications with a SIP of water on the morning of surgery: Amlodipine and Isosorbide DO NOT STOP ANY OF YOUR OTHER PRESCRIPTION MEDICATIONS PRIOR TO SURGERY EXCEPT THE FOLLOWING Hold all vitamins, probiotics, ASPIRIN, NSAIDS and any supplements for 7 days prior to surgery per Dr Delacruz Date to take last dose____01/08/25 Please no make-up, nail occitan, hairspray, perfume, deodorant, or body powder the day of surgery.? No jewelry (including any body piercings) or valuables the day of surgery, leave them at home.? Please take a shower or bath the night before, or the morning of, surgery with an antibacterial soap.? Wear comfortable, loose fitting clothing. - Jewelry must be removed prior to entering the operating room.? Rings and piercings that are not removed may be cut off. - The hospital will not accept responsibility for valuables.? - Please leave all valuables, including medications, at home the day of surgery. If you are going home after surgery, a licensed route delivery driver must drive you home.? - NO public transportation without another adult if you receive anesthesia. - We recommend that an adult stay with you for 24 hours following discharge. - We also recommend that you do not drive, make important decision, drink alcoholic beverages, or take any drugs that were not prescribed by your health care provider for at least 24 hours after your discharge time. Follow any additional instructions given to you from your surgeon. Telephone instructions given to ___Patient and asked if any additional questions and then verbalized understanding. Patient advised to call surgeon office or pre surgery nurse liaison [phone] if any additional questions.
[2025-01-01 16:08] VITALS: BMI 28.2
[2025-01-16] VITALS (10 sets, daily range): BP systolic 90–122; BP diastolic 43–55; PULSE 77–105; RESP 12–16; TEMP 36.6–37.1; O2SAT 95–100; BMI 27.8
--- NOTE | ~2025-01-16 | XR_ITS ---
EXAMINATION: XR retrograde pyelo w/stent RT DATE: 01/16/2025 08:43 INDICATION: Right internal ureteral stent placement TECHNIQUE: Fluoroscopic images from a right stent placement are submitted for review. 39 seconds of fluoroscopy time. FINDINGS: There is a right double-J internal ureteral stent projecting in expected position, with proximal [place] loop at the level of the renal pelvis and distal loop in the pelvis within the bladder lumen. IMPRESSION: 1. Right internal ureteral stent placement. Please refer to real-time procedural findings for details. Reviewed, dictated and finalized at location I. OR CONSTRUCTION ESTIMATOR IMPRESSION: 1. Right internal ureteral stent placement. Please refer to real-time procedu ral findings for details.
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
--- OUTSIDE RECORDS SUMMARY | 2025-01-16 03:25 | XMS_ITS | Clinical Summary ---
Author Organization [facility] Facility Address [address] [address] Care Team Providers Care Aviation Safety Officer Name Role Phone Carlos Mosley MD Primary Care Provider [phone] Medications indapamide (LOZOL) 2.5 MG tablet Take 1 tablet (2.5 mg total) by mouth 1 (one) time each day in the morning 90 tablet 1 4 Active Empagliflozin (Jardiance) 25 MG tablet Take 25 mg by mouth 1 (one) time each day in the morning 30 tablet 5 5 Active amLODIPine (NORVASC) 5 MG tablet TAKE 1 TABLET(5 MG) BY MOUTH EVERY NIGHT 90 tablet 1 5 Active olmesartan (BENICAR) 40 MG tablet TAKE 1/2 TABLET BY MOUTH EVERY NIGHT 90 tablet 1 5 Active metFORMIN XR (GLUCOPHAGE-XR ) 500 MG 24 hr tablet TAKE 1 TABLET(500 MG) BY MOUTH 1 TIME EACH DAY IN THE MORNING. DO NOT CRUSH, CHEW, OR SPLIT 90 tablet 1 5 Active metFORMIN XR (GLUCOPHAGE-XR ) 500 MG 24 hr tablet Take 1 tablet (500 mg total) by mouth 1 (one) time each day in the morning Do not crush, chew, or split. 90 tablet 1 5 01/05/20 25 Discontinued Active Problems Problem Noted Date Diagnosed Date Essential hypertension 09/21/2024 Encounters Date Type Department Care Team Description 01/04/2025 Refill [facility], [address] [phone] Alverto Gaffney DO 11/19/[address] [address] Alverto Gaffney, 10/17/2024 Documentation Only [address] [address] Alverto Gaffney, 10/17/2024 Documentation Only [address] [address] Alverto Gaffney DO from Last 3 Months Social History Tobacco [...] Care Team (Late st Contact Info) Description 03/22/2025 2:15 PM COUNSELING SERVICES DIRECTOR Office Visit [address] [address] Alverto Gaffney DO [address] [place] [phone] Health Maintenance Due Date Last Done [...] 3:00 AM CDT) Cystine, Ur CANCELED [facility] Comment: Test not performed. Previous test results on file. Result canceled by the ancillary. Urine Volume (Preservative) 2,750 500 - 4,000 mL/24 hr [facility] Calcium Oxalate 6.19 6.00 - 10.00 [facility] Calcium, 24H Urine 147 <200 mg/24 hr [facility] Oxalate, 24H Ur 50(H) 20 - 40 mg/24 hr [facility] Citrate, 24H Ur 512(L) >550 mg/24 hr [facility] Calcium Phosphate Saturation 0.14(L) 0.50 - 2.00 [facility] pH, 24 Hr Urine 5.602(L) 5.800 - 6.200 [facility] Uric Acid Saturation 0.82 <1.00 [facility] Uric Acid, 24H Ur 555 <750 mg/24 hr [facility] Sodium, 24H Ur 121 50 - 150 mmol/24 hr [facility] Potassium, 24H Ur 68 20 - 100 mmol/24 hr [facility] Magnesium, 24H Ur 32 30 - 120 mg/24 hr [facility] Phosphorus 24 Hour Urine 652 600 - 1,200 mg/24 hr [facility] Ammonia, 24 hr Urine 54 15 - 60 mmol/24 hr [facility] Chloride, 24H Ur 125 70 - 250 mmol/24 hr [facility] Sulfate, 24H Ur 30 20 - 80 meq/24 hr [facility] Urea Nitrogen, 24H Ur 8.81 6.00 - 14.00 g/24 hr [facility] Protein Catabolic Rate, (14) 1.0 0.8 - 1.4 g/kg/24 hr [facility] Creatinine in 24 hour Urine 1,350 Not Applic. mg/24 hr [facility] Creatinine/KG Body Weight 19.8 8.7 - 20.3 mg/24 hr/kg [facility] Calcium/KG Body Weight 2.2 <4.0 mg/24 hr/kg [facility] Calcium/Creat.R atio 109 51 - 262 mg/g creat [facility] Comment Note [facility] PDF . [facility] Urine Urine specimen / Unknown 11/01/2024 3:00 AM CDT 11/01/2024 11:00 PM CDT Narrative [facility] - 11/07/2024 5:09 AM CDT Test(s) [id number], Urine, Qualitative; [id number]-Sqqnjeb, Urine; [id number]-cJ, 24 hr, Urine; [id number]-Kphgptwb, Urine; [id number]- Sulfate, Urine was developed and its performance characteristics determined by [facility]. It has not been cleared or approved by the Food and Drug Administration. Alverto Gaffney DO LAB URINE ORDERABLES Edited Result - Final [facility] [address] [place] [phone] from Last 3 Months Insurance [facility] [place] [address] Care Teams Aviation Safety Officer Relationship Specialty Start Date End Date Carlos Mosley MD [address] [place] [address] PCP - General Internal Medicine 09/16/21
--- OUTSIDE RECORDS SUMMARY | 2025-01-16 03:25 | XMS_ITS | Clinical Summary ---
Author Organization [facility] Address [address] [place] [address] Care Team Providers Care Chief Nurse Name Role Phone Dimitri Gonzalez MD Primary Care Provider [phone] Allergies Active Allergy Reactions Criticality Noted Date [...] (05/20/2022): Added automatically from request for surgery [id number] SOB (shortness of breath) 05/20/2022 Overview (05/20/2022): Added automatically from request for surgery [id number] Encounters Date Type Department Care Team Description 11/18/2024 7:53 AM CDT - 11/18/2024 11:59 PM CDT Hospital Encounter [facility] and Radiology [id number] [place] [address] Other specified disorders of kidney and ureter [...] on file Legal Sex Female 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
[2025-01-16] MEDS: LACTATED RINGERS 1,000 ML 30 ML IV CONT ×2 (06:45→09:22)
--- NOTE | 2025-01-16 07:11 | WPDANESEPPF ---
Anes - Initial Pre Proc Eval Procedure: Operation Date: 01/16/25 07:30 Proposed Procedures p Cystoscopy, Right Ureteroscopy - Bladimir Delacruz MD Date/Time: 01/16/25 07:11 Surgeon: Bladimir Delacruz MD Pre Op Diagnosis: right kidney stone Patient Data Age: 69 Gender: F Height: 1.55 m Weight: 67.8 kg Allergies Allergy/AdvReac Type Severity Reaction Status Date / Time Penicillins Allergy Severe Anaphylactic Verified 01/01/25 16:02 Shock Home Medications ?Medication ?Instructions ?Recorded ?Confirmed ?Type Adults Multivitamin 1 tab-cap PO DAILY 06/03/22 01/01/25 History cholecalciferol (vitamin D3) 10 10 mcg PO DAILY 06/03/22 01/01/25 History mcg (400 unit) capsule (Vitamin D3) escitalopram oxalate 10 mg tablet 10 mg PO HS 08/04/22 01/01/25 History ascorbic acid (vitamin C) 1,000 mg 1 g PO DAILY 12/28/22 01/01/25 History tablet tmjyyg-gedgfrky-ccttmzs(pork)5,000-17,000-24,000 1 cap PO DAILY 12/28/22 01/01/25 History unit capsule, del rel (Zenpep) melatonin 10 mg tablet 10 mg PO HS PRN Insomnia 12/28/22 01/01/25 History pantoprazole 40 mg tablet,delayed 40 mg PO DAILY 12/28/22 01/01/25 History release clobetasol 0.05 % topical ointment 1 applic topical QHS #30 grams 07/11/24 01/01/25 Rx amlodipine 5 mg tablet 5 mg PO DAILY 12/20/24 01/01/25 History empagliflozin 25 mg tablet 25 mg PO DAILY 12/20/24 01/01/25 History (Jardiance) isosorbide mononitrate 60 mg 60 mg PO DAILY 12/20/24 01/01/25 History tablet,extended release 24 hr metformin 500 mg tablet,extended 500 mg PO .am 12/20/24 01/01/25 History release 24 hr olmesartan 40 mg tablet 20 mg PO DAILY 12/20/24 01/01/25 History hyoscyamine sulfate 0.125 mg 0.125 mg sublingual QID PRN 12/26/24 01/01/25 Rx sublingual tablet bladder spasms or ureteral stent discomfort #30 tabs tamsulosin 0.4 mg capsule 0.4 mg PO HS #30 caps 12/26/24 01/01/25 Rx Laboratory Tests 01/16/25 06:40 POC Capillary Glucose 130 H mg/dl (65-105) Patient hx anesthesia problems: none Family hx anesthesia problems: none Results Review: All pre-operative results and documents have been reviewed as part of the pre-operative evaluation. [facility] Past Medical History Medical History Screening mammogram, encounter for Moderate mitral regurgitation Adnexal mass Ovarian cyst Vaginal discharge Hypertension Surgical History Surgical History Hx of hernia repair Lengthy adhesiolysis, repair multiple ventral hernias totaling 17.5 cm, bilateral transversus abdominis myofascial flap advancement, 5 cm on the left, 4 cm on the right. Repair injury to sigmoid colon on 01/06/23 History of reversal of ileostomy History of colon resection H/O gynecological procedure laparoscopy w.oopherectomy H/O: hysterectomy Family History Family History Mother Hypertension Cerebrovascular accident Grandparent Hypertension Heart disease Sibling Acute myocardial infarction Social History Social History Smoking packs per day: 1 Smoking cigarettes per day: 20.0 Years smoked: 45 Smoking pack-years: 45.00 Smoking status: Former smoker Tobacco type: cigarettes Second hand tobacco smoke exposure: No Smoking end date: 02/15/19 Additional smoking assessment comments: denies nicotine Alcohol intake: never Alcohol use details: SOCIALLY IN THE PAST Substance use: never Substance use type: does not use Lack of Transportation: No Lack of Food: Never True Current Housing: I Have Housing Concerned About Future Housing: No Difficulty Paying Gas/Electric Bills: No Difficulty Paying for Meds: No Currently Unemployed: No Education: High School Diploma/GED Difficulty w/ Childcare or Family Care: No Living arrangements: with family Additional living arrangements comments: Occupation/Education: retired Gender identity (if verbalized by the patient): Female Sexual Orientation (if Verbalized by the Patient): Straight or Heterosexual Spiritual care concerns: No Anes - Eval Final PreProcedure Day of Procedure 01/16/25 07:11 Patient weight: overweight Heart: regular rate and rhythm Lungs: decreased breath sounds Airway: Mallampati scale class III Neurological: alert and oriented Last oral intake: >/= 8 hours ASA classification: III Emergent: no Anesthetic plan: proceed Anesthesia type and monitoring: general LMA and standard monitoring Results Review: All pre-operative results and documents have been reviewed as part of the pre-operative evaluation. Informed Consent: The patient's anesthetic plan and its attendant risks and benefits were discussed with the patient/family/POA. Questions were solicited and answers provided to the satisfaction of the patient/family/POA.
--- NOTE | 2025-01-16 07:21 | PM.HPGS ---
History of Present Illness History of Present Illness Consent: Risks, benefits, and alternatives have been discussed and questions answered. Patient agrees to proceed with procedure. Chief complaint: right kidney stone Narrative: Val Iraheta is a 69 year old female with PMHx of HTN, mitral regurgitation who was found on recent imaging to have a large 1.5 cm right renal pelvis stone. She underwent placement of right ureteral stent on 12/26/2024 and presents today for definitive endoscopic management of this stone with ureteroscopy and CVAC. She denies any changes past her baseline and is ready for the procedure today. Review of Systems Review of Systems: Constitutional: No fevers or chills Eyes: No changes in vision HENT: No hearing loss Cardiovascular: No chest pain or palpitations Respiratory: No shortness of breath, cough, wheezing GI: No abdominal pain, nausea, or vomiting : No dysuria or difficulty urinating Heme: No easy bruising or bleeding Skin: No rash or itching MSK: No myalgias or joint pain Psych: No hallucinations Neuro: No lateralized numbness or tingling PMFSH Past Medical History Medical History Screening mammogram, encounter for Moderate mitral regurgitation Adnexal mass Ovarian cyst Vaginal discharge Hypertension Surgical History Surgical History Hx of hernia repair Lengthy adhesiolysis, repair multiple ventral hernias totaling 17.5 cm, bilateral transversus abdominis myofascial flap advancement, 5 cm on the left, 4 cm on the right. Repair injury to sigmoid colon on 01/06/23 History of reversal of ileostomy History of colon resection H/O gynecological procedure laparoscopy w.oopherectomy H/O: hysterectomy Family History Family History Mother Hypertension Cerebrovascular accident Grandparent Hypertension Heart disease Sibling Acute myocardial infarction Social History Social History Smoking packs per day: 1 Smoking cigarettes per day: 20.0 Years smoked: 45 Smoking pack-years: 45.00 Smoking status: Former smoker Tobacco type: cigarettes Second hand tobacco smoke exposure: No Smoking end date: 02/15/19 Additional smoking assessment comments: denies nicotine Alcohol intake: never Alcohol use details: SOCIALLY IN THE PAST Substance use: never Substance use type: does not use Lack of Transportation: No Lack of Food: Never True Current Housing: I Have Housing Concerned About Future Housing: No Difficulty Paying Gas/Electric Bills: No Difficulty Paying for Meds: No Currently Unemployed: No Education: High School Diploma/GED Difficulty w/ Childcare or Family Care: No Living arrangements: with family Additional living arrangements comments: Occupation/Education: retired Gender identity (if verbalized by the patient): Female Sexual Orientation (if Verbalized by the Patient): Straight or Heterosexual Spiritual care concerns: No Meds Home Medications and Allergies Home Medications ?Medication ?Instructions ?Recorded ?Confirmed ?Type Adults Multivitamin 1 tab-cap PO DAILY 06/03/22 01/16/25 History cholecalciferol (vitamin D3) 10 10 mcg PO DAILY 06/03/22 01/16/25 History mcg (400 unit) capsule (Vitamin D3) escitalopram oxalate 10 mg tablet 10 mg PO HS 08/04/22 01/01/25 History ascorbic acid (vitamin C) 1,000 mg 1 g PO DAILY 12/28/22 01/16/25 History tablet gyoqpo-tubkneou-lozqmly(pork)5,000-17,000-24,000 1 cap PO DAILY 12/28/22 01/01/25 History unit capsule, del rel (Zenpep) melatonin 10 mg tablet 10 mg PO HS PRN Insomnia 12/28/22 01/16/25 History pantoprazole 40 mg tablet,delayed 40 mg PO DAILY 12/28/22 01/01/25 History release clobetasol 0.05 % topical ointment 1 applic topical QHS #30 grams 07/11/24 01/01/25 Rx amlodipine 5 mg tablet 5 mg PO DAILY 12/20/24 01/16/25 History empagliflozin 25 mg tablet 25 mg PO DAILY 12/20/24 01/01/25 History (Jardiance) isosorbide mononitrate 60 mg 60 mg PO DAILY 12/20/24 01/16/25 History tablet,extended release 24 hr metformin 500 mg tablet,extended 500 mg PO .am 12/20/24 01/01/25 History release 24 hr olmesartan 40 mg tablet 20 mg PO DAILY 12/20/24 01/01/25 History hyoscyamine sulfate 0.125 mg 0.125 mg sublingual QID PRN 12/26/24 01/01/25 Rx sublingual tablet bladder spasms or ureteral stent discomfort #30 tabs tamsulosin 0.4 mg capsule 0.4 mg PO HS #30 caps 12/26/24 01/01/25 Rx Allergies Allergy/AdvReac Type Severity Reaction Status Date / Time Penicillins Allergy Severe Anaphylactic Verified 01/01/25 16:02 Shock Vital Signs Vital Signs - 24 hr 01/16/25 07:14 Temperature 37.1 C Pulse Rate 77 Blood Pressure 103/52 L Pulse Oximetry 97 Oxygen Delivery Room Air Exam Narrative: General: Alert, no acute distress Head: Normocephalic, atraumatic Eyes: Extraocular movements intact Neck: No JVD, trachea midline Respiratory: Symmetric chest rise, nonlabored breathing on room air CV: Normal rate, adequate peripheral perfusion Abdomen: Soft, nontender, nondistended Skin: Warm/dry Extremities: No peripheral edema, no cyanosis Neuro: No focal deficits Psych: Answers questions appropriately, appropriate mood Assessment and Plan Assessment and plan (1) Nephrolithiasis: Code(s): N20.0 - Calculus of kidney Status: Acute Plan 69yF with a 1.5 cm right kidney stone s/p placement of right ureteral stent 12/26/2024 - To OR for cystoscopy, right retrograde pyelogram, ureteroscopy with CVAC, and right ureteral stent exchange - Risks, benefits, alternatives reviewed with the patient. She is amenable to proceed - Anticipate discharge home thereafter
--- NOTE | 2025-01-16 07:24 | WPDHPUPDATE1 ---
History and Physical Update Update Date/Time: 01/16/25 07:24 History and Physical has been reviewed, including an updated exam of the patient. There are NO changes in the patient's condition. Risks, benefits, and alternatives have been discussed and questions answered. Patient agrees to proceed with procedure.
[2025-01-16] MEDS: ceFAZolin 2 GM in SODIUM CHLORIDE 0.9% IV 50 ML 100 ML IVPB (07:35)
--- NOTE | 2025-01-16 08:36 | S_PTH ---
PATIENT: Val Iraheta LOC: [facility] U#:[id number] AGE/SX: 69/F ROOM: RE01/16/[address]: Bladimir Delacruz MD : 1955 BED: DIS: 01/16/2025 SPEC #: [id number] RECD: 01/16/25 10:21 STATUS: DARCIE REQ #: [id number] SYLVIA: 01/16/25 08:[address]: Bladimir Delacruz DEPT: [facility] Surgical RECD BY: Connie Hartman ENTERED: 01/16/25 10:22 SP TYPE: Surgical OTHR DR: Dimitri Gonzalez, Tissues: A - Stone Procedures: Gross Exam Level 1 Crystalline Analysis
--- NOTE | 2025-01-16 08:56 | W.PM.PROC2 ---
Procedure Note - Detailed Date of Procedure 01/16/25 Pre-op Diagnosis right kidney stone Post-op Diagnosis Same Procedure Performed 1. Cystoscopy 2. Right retrograde pyelogram with intraoperative interpretation 3. Right ureteroscopy, laser lithotripsy, with irrigation/aspiration of stone fragments 4. Right ureteral stent exchange Surgeon Bladimir Delacruz MD Anesthesia General Description of Procedure Procedures Performed: 1. Cystoscopy 2. Right retrograde pyelogram with intraoperative interpretation 3. Right ureteroscopy, laser lithotripsy, with irrigation/aspiration of stone fragments 4. Right ureteral stent exchange Findings: 1. All upper tract stones dusted 2. Right retrograde pyelogram using a 50 50 mixture of contrast and saline performed after stone treatment showed no hydroureteronephrosis, contrast extravasation, or filling defects 2. Stent placed in appropriate position Details of procedure: The patient was brought back to the operating room. They were prepped, draped, and padded per protocol. Pre-operative IV antibiotics were confirmed to have been administered. A formal time out was performed to confirm the correct patient, site, laterality, and procedure and all were in agreement to proceed. The bladder was entered transurethrally with the rigid cystoscope. Pancystoscopy was performed and no suspicious intravesical tumors, lesions, stones, active bleeding were noted. The bladder itself was normal. A sensor wire was advanced up the right ureter into the kidney. The cystoscope was removed and the Sensor wire was secured to the drapes with a hemostat. The cystoscope was reintroduced transurethrally into the bladder and a second safety Glidewire was advanced up the right ureter and into the kidney. The cystoscope was removed and a ureteral access sheath was advanced over the Glidewire under direct fluoroscopic guidance to the level of the proximal ureter. A single use CVAC flexible ureteroscope was advanced through the ureteral access sheath and into the kidney. A holmium laser fiber was used to dust/fragment/popcorn the stones until there was no significant stone remaining. The full collecting system was then surveyed with the single use CVAC ureteroscope. Exhaustive steerable vacuum aspiration was performed in each calyx and the renal pelvis using continuous fluid irrigation, increased fluid flow to mobilize stones, and intermittent vacuum aspiration. Fluid outflow was monitored to confirm effluent contained stone fragments. Upon completion of vacuum aspiration of the primary stone locations, the full collecting system was navigated and irrigation/vacuum continued to collect fragments moving through the collecting system. This was performed until there were no residual sizeable visible fragments. Next, a right retrograde pyelogram was performed through the CVAC scope positioned in the renal pelvis in order to delineate the collecting system in anticipation of stent placement; please see above for intraoperative retrograde pyelogram findings. The CVAC scope was then backed down the ureter while simultaneously removing the access sheath and the ureter was then inspected on the way out and there was no significant trauma noted. With the access sheath and CVAC ureteroscope removed, the cystoscope was then backloaded onto the Sensor wire and advanced transurethrally into the bladder with attention drawn to the right ureteral orifice. Over top of the wire, a 6 [place] x 24 cm JJ stent was then advanced over the wire and the pusher was used to deploy the stent in place. A good proximal curl was noted in the right kidney under fluoroscopy and a good distal curl was noted in the bladder under both direct cystoscopic and fluoroscopic vision. The patient's bladder was then drained and the cystoscope was removed, essentially concluding the case. At the conclusion of the case all sponge, instrument, and sharp counts were correct x2. The patient was awoken from anesthesia and taken to the recovery unit in stable condition. The patient tolerated the procedure well and there were no immediate complications noted.
[2025-01-16] MEDS: fentaNYL CITRATE INJ (*CRX) 100 MCG/2 ML VIAL 25 MCG IV PUSH ×4 (09:10→09:20)
[2025-01-16] MEDS: oxyCODONE HCL (*CRX) 5 MG TAB IR PO (10:29)
== END 2025-01-16 11:13 | disposition home or self-care (01) ==
PROVIDERS: PCP Internal Medicine; Visit Provider Urology
PROC: (CPT 52352; principal; 2025-01-16 07:30)
DX: N20.0 Calculus of kidney (principal); I10 Essential (primary) hypertension; Z87.891 Personal history of nicotine dependence; Z79.84 Long term (current) use of oral hypoglycemic drugs
CPT/HCPCS: 52356; C9761; 74420; 82365; 82948; 88300; J0690; A9270; C1747; C1758; C1769; C2617; J2003; J2250; J2405; J2704; J3010; J7120; Q9966